=== PATIENT | female | born 1945 | race African-American/Black ===

== ENCOUNTER 2021-02-25 06:14 | Day surgery (SDC) | payer OTHER ==
[2021-02-20 10:40] LABS: Absolute Lymphocytes (CBC) 1.9 K/uL (0.7-4.9); Basophils % 0.7 % (0-1.3); Hematocrit 36.8 % (36.0-45.0); Lymphocytes % 27.5 % (15.3-44.8); MPV 8.2 fL (7.6-11.3); RBC Red Blood Cell Count 4.05 M/uL (3.86-4.86)
[2021-02-20 10:45] LABS: Protime INR 0.98
--- NOTE | 2021-02-20 10:55 | RAD REPORT ---
EXAM DESCRIPTION: RAD - Chest Pa And Lat (2 Views) - 02/20/2021 10:49 am CLINICAL HISTORY: preop Chest pain. COMPARISON: Chest Single View dated 09/03/2017 FINDINGS: The lungs are clear. The heart is mildly prominent in size. No displaced fractures. IMPRESSION: No acute or concerning finding suspected.
[2021-02-20 11:01] LABS: Potassium 3.6 mmol/L (3.5-5.1)
[2021-02-25] MEDS ORDERED: HEPA 1000U/500MLS 1,000 UNIT/500 ML BAG IV ONE (07:01)
[2021-02-25] MEDS ORDERED: LIDOCAINE 1% 20 ML MDV ONE ×2 (07:01→08:07)
[2021-02-25] MEDS ORDERED: NA CHLORIDE 0.9% 500 ML ONE (07:14)
[2021-02-25] MEDS ORDERED: MIDAZOLAM HCL 2 MG/2 ML INJ ONE ×3 (07:37→08:05)
[2021-02-25] MEDS ORDERED: FENTANYL CITR 100 MCG/2 ML ONE ×2 (07:37→13:00)
[2021-02-25] MEDS ORDERED: ATROPINE SULF 1 MG/10 ML SYR IV ONE ×3 (07:37→10:28)
[2021-02-25] MEDS ORDERED: NA CHLORIDE 0.9% 0 ML ONE (07:37)
[2021-02-25] MEDS ORDERED: NA CHLORIDE 0.9% 1,000 ML ONE (10:22)
[2021-02-25] MEDS ORDERED: FLUMAZENIL 0.1 MG/ML (5 mL VIAL) IV ONE (10:24)
[2021-02-25 10:26] LABS: Absolute Lymphocytes (CBC) 2.6 K/uL (0.7-4.9); Basophils % 0.8 % (0-1.3); Lymphocytes % 33.6 % (15.3-44.8); MPV 8.6 fL (7.6-11.3); RBC Red Blood Cell Count 4.11 M/uL (3.86-4.86)
[2021-02-25] MEDS ORDERED: ONDANSETRON 4 MG/2 ML VIAL ONE (11:05)
--- NOTE | 2021-02-25 11:18 | OP ---
Surgeon: Akil Pinto MD National Business Director: Mr. Jourdan Muller. The total conscious sedation was 45 minutes. The patient will remain in the hospital for 2 hours of bedrest after the procedure. She will go home today. Continue home medication. She will see me in the office in 2 weeks. Admitted to my service as an outpatient to the [facility] coreroom on 02/25/2021 for a left heart catheterizatio n, selective coronary arteriogram, left ventriculogram and left ventricular end-diastolic pressure wi asurements. Indication: With hypertension, dyslipidemia, and unstable angina. Procedure In Detail: The patient was prepped and draped in the routine sterile fashion. Given Verse d for sedation along with fentanyl. A 6-St Helenian sheath was introduced in the right common femoral art merrill successfully using the Seldinger technique, 10 cc of xylocaine. Angiography there was normal. A ngio-Seal was used to close the case. A Ravi catheter was used to do the diagnostic catheterizati on. She had mild plaquing in the LAD, mild plaquing in the left main, normal circumflex, normal RCA. She was right dominant. The JR4 catheter was used to cannulate the LV. The left ventriculogram sh owed an ejection fraction of 69%. Normal wall motion. Left ventricular end-diastolic pressure was 4 mmHg. The patient tolerated the procedure well. There were no complications. Blood Loss: 5 mL. Postoperative Diagnosis: Mild coronary artery disease. Plan: To continue medical therapy. RADHA/SAI Voice ID: [id number] Report ID: [id number]
--- NOTE | 2021-02-25 11:25 | RAD REPORT ---
EXAM DESCRIPTION: CT - Abdomen Pelvis W Contrast - 02/25/2021 11:08 am CLINICAL HISTORY: Prior catheterization, concern for retroperitoneal bleed COMPARISON: 09/03/2017 TECHNIQUE: Biphasic, helical CT imaging of the abdomen and pelvis was performed following oral and 1 00 ml non-ionic IV contrast. All CT scans are performed using dose optimization technique as appropriate and may include automated exposure control or mA/KV adjustment according to patient size. FINDINGS: No suspicious findings in the lung bases. Too small to characterize low-density lesion in the left hepatic lobe, statistically benign. No adren al lesions. Pancreas is within normal limits. Benign-appearing low-density renal lesions, statistical ly cysts. Spleen is unremarkable. No retroperitoneal adenopathy. Contrast present within the bladder. No bowel obstruction. Ventral abdominal wall laxity. Small retroperitoneal hemorrhage on the right s ousmane along the right inguinal region. No suspicious bony findings. IMPRESSION: Small right-sided retroperitoneal hematoma. No other acute findings identified.
[2021-02-25] MEDS ORDERED: FENTANYL CITR 100 MCG/2 ML IV PRN (12:22)
[2021-02-25 14:20] VITALS: BMI 35.4
[2021-02-25] MEDS: FENTANYL CITR 100 MCG/2 ML IV PRN ×4 (15:00→22:27)
[2021-02-25 15:52] LABS: Urine Appearance CLEAR (Clear); Urine Bilirubin NEGATIVE (Negative); Urine Blood NEGATIVE (Negative); Urine Color YELLOW (Yellow); Urine Glucose NEGATIVE (Negative); Urine Protein NEGATIVE (Negative); Urine Specific Gravity >=1.030 (1.005-1.030); Urine Urobilinogen 0.2 mg/dL (0.2-1.0); Urine pH 7.5 (5.0-7.0)
[2021-02-25 16:08] LABS: Urine Microscopic Reflex NO UMIC
[2021-02-25 16:48] LABS: Absolute Lymphocytes (CBC) 0.9 K/uL (0.7-4.9); Basophils % 0.7 % (0-1.3); Hematocrit 33.5 % (36.0-45.0); Lymphocytes % 10.8 % (15.3-44.8); MPV 8.6 fL (7.6-11.3); RBC Red Blood Cell Count 3.67 M/uL (3.86-4.86)
[2021-02-25 17:37] LABS: BUN Blood Urea Nitrogen 13 mg/dL (7-18); Bicarbonate 29 mmol/L (21-32); Glucose Level 106 mg/dL (74-106); Potassium 3.6 mmol/L (3.5-5.1); Sodium Level 142 mmol/L (136-145)
[2021-02-25 18:05] LABS: Blood Morphology Comment NOT SEEN (NOT SEEN); Platelet Estimate ADEQ; White Blood Cell Scan OK (OK)
[2021-02-25] MEDS ORDERED: ACETAMINOPHEN 325 MG TABLET PO PRN (20:31)
[2021-02-25] MEDS: NA CHLORIDE 0.9% 1,000 ML IV SCH (22:27)
[2021-02-26] MEDS: FENTANYL CITR 100 MCG/2 ML IV PRN (02:49)
[2021-02-26] MEDS: NA CHLORIDE 0.9% 1,000 ML IV SCH (06:10)
[2021-02-26 06:37] LABS: BUN Blood Urea Nitrogen 10 mg/dL (7-18); Bicarbonate 28 mmol/L (21-32); Glucose Level 87 mg/dL (74-106); HDL Cholesterol 75 mg/dL (40-60); LDL Cholesterol, Calculated 83 (<130); Potassium 3.3 mmol/L (3.5-5.1); Sodium Level 142 mmol/L (136-145)
[2021-02-26 06:58] LABS: Absolute Lymphocytes (CBC) 1.5 K/uL (0.7-4.9); Basophils % 0.4 % (0-1.3); Hematocrit 33.7 % (36.0-45.0); MPV 8.8 fL (7.6-11.3); RBC Red Blood Cell Count 3.68 M/uL (3.86-4.86)
[2021-02-26 10:50] VITALS: BP 121/56; TEMP 97
[2021-02-26 11:14] VITALS: O2SAT 97
--- NOTE | 2021-02-27 07:32 | SS ---
Date of Discharge: 02/26/2021 Reason For Admission: Unstable angina. Discharge Diagnosis: Chest pain with normal coronaries. Her other diagnoses include hypertension, dyslipidemia, gastroesophageal reflux disease, and obesity. Allergies: INCLUDE CLINDAMYCIN. Discharge Instructions: Discharge instruction was for her to follow up in my office in 2 weeks and c ontinue her home medication. Discharge diet was low-fat, low-cholesterol diet. Discharge activities were minimal activities. No heavy lifting or driving for 48 hours. Discharge Medications: The same as at home including aspirin, Norvasc, and Lipitor. Procedure: While she was in the hospital include left heart catheterization showing mild coronary ar mariel disease. No focal stenosis. Hospital Course: Ms. Saucedo is a 75-year-old, has hypertension, dyslipidemia, obesity, had classic sym ptoms for unstable angina including chest pain, radiating to the arm with exertion and shortness of b reath and diaphoresis. Catheterization has been planned as an outpatient and her heart catheterizati on itself was uneventful; however, post catheterization, she developed retroperitoneal hematoma docum ented by CT scan. She was initially vagal with low blood pressure and low heart rate. She was given 1 mg of atropine with fluid and recovered fully. CT scan of the abdomen showed retroperitoneal rich stephanie. She was observed overnight. Pressure was held at the groin for 40 minutes total. There were no obvious hematoma or ecchymosis. Most of the bleeding was retroperitoneal. The second day after t he catheterization, she was asymptomatic, was able to ambulate. Blood pressure was normal. She had good urinary output. She was asymptomatic and she was discharged with the above-mentioned instructions. RADHA/SAI Voice ID: [id number] Report ID: [id number]
== END 2021-02-26 10:55 | disposition home or self-care (01) ==
LOC: CCL 06:14 → 2ND 12:59 → CCL 02-26 10:55
DX: I25.110 Atherosclerotic heart disease of native coronary artery with unstable angina pectoris (principal); K66.1 Hemoperitoneum; I95.81 Postprocedural hypotension; R00.1 Bradycardia, unspecified; Y84.0 Cardiac catheterization as the cause of abnormal reaction of the patient, or of later complication, without mention of misadventure at the time of the procedure; Y92.239 Unspecified place in hospital as the place of occurrence of the external cause; I35.9 Nonrheumatic aortic valve disorder, unspecified; R01.1 Cardiac murmur, unspecified; I65.22 Occlusion and stenosis of left carotid artery; I10 Essential (primary) hypertension; E78.2 Mixed hyperlipidemia; K21.9 Gastro-esophageal reflux disease without esophagitis; R60.0 Localized edema; M15.0 Primary generalized (osteo)arthritis; E66.9 Obesity, unspecified; Z68.35 Body mass index [BMI] 35.0-35.9, adult; Z88.3 Allergy status to other anti-infective agents; Z88.6 Allergy status to analgesic agent; Z82.49 Family history of ischemic heart disease and other diseases of the circulatory system
CPT/HCPCS: 85025 ×4; 80048 ×3; 36415 ×3; 85610; 80061; 85730; 81003; 74177; 71046; 93458; Q9967; C1893; C1760; J2250 ×2; J3010 ×7; J7040; J7030 ×3; J1644; J2405; J0583

== ENCOUNTER 2023-02-13 09:26 | Emergency (ER) | payer OTHER ==
--- OUTSIDE RECORDS SUMMARY | 2023-02-13 09:41 | XMS REPORT | Continuity of Care Document ---
:1945 Author Organization [facility] t Address [address] [place] [address] [address] [place] [address] Care Team Providers Name Role Phone Timur GAYTAN, Madison Fragoso Primary Care Physician [phone] LAISHA BRITO Attending Clinician Unavailable CHAD SENDSTEFAINE K.H. Attending Clinician Unavailable PHONG MANNING Attending Clinician Unavailable Phong Manning PA-C Attending Clinician Unknown, Attending Attending Clinician Unavailable Julio GAYTAN, Dariel Attending Clinician DARIEL KEARNS Attending Clinician Unavailable Doctor Unassigned, [place] Attending Clinician Unavailable Madhu Verduzco MD Attending Clinician Chad GAYTAN, Sendstefanie K.H. Attending Clinician Julissa Padilla Attending Clinician JULISSA CASEY Attending Clinician Unavailable Scotty Catsro MD Attending Clinician [phone] Renetta Lu MD, Leeroy Keyes Attending Clinician Vaccine, Ang Db Cbc Fam Attending Clinician Unavailable Kt Johnson Attending Clinician Unavailable MERLE WHEELER Attending Clinician Unavailable ALEJANDRA LARSON Attending Clinician Unavailable Alejandra Larson MD Attending Clinician Mary Navarreet Attending Clinician MARY FELDMAN Attending Clinician Unavailable IRMA JOSHUA Attending Clinician Unavailable Ogunlanstephy DPM, Irma A Attending Clinician [phone] FLACO DE JESUS Attending Clinician Unavailable Neal [employer] SENIOR SERGEANT, Flaco Attending Clinician CHIRAG MAIER Attending Clinician Unavailable Laisha Brito MD Attending Clinician Lab, Ang - Db Attending Clinician Unavailable ESTHER PORTER Attending Clinician Unavailable Esther Marino Attending Clinician Asif Sanchez MD Attending Clinician ASIF SANCHEZ Attending Clinician Unavailable LEEROY LU Attending Clinician Unavailable Nurse, Adc Pob Immunization Attending Clinician Unavailable Drake Reece DO Attending Clinician DRAKE REECE Attending Clinician Unavailable Timur GAYTAN, Madison Fragoso Attending Clinician [phone] Ruby Hearn Attending Clinician Gurjit Pope Attending Clinician GURJIT CHRISTIANSON Attending Clinician Unavailable Provider, Ang [facility] Attending Clinician Unavailable Jeff LOVE, Luisa Attending Clinician TOVA BARBER Attending Clinician Unavailable ISABELLE COOK Attending Clinician Unavailable IGNACIA GIORDANO Attending Clinician Unavailable IGNACIA GIORDANO Attending Clinician Unavailable ALEJANDRA LARSON Admitting Clinician Unavailable FLACO DE JESUS Admitting Clinician Unavailable CHIRAG MAIER Admitting Clinician Unavailable EMERGENCY ROOM, EMERGENCY Admitting Clinician Unavailable Payers Payer Name Policy Type Policy Number Effective Date Expiration Date S our MEDICARE PART A \T\ [id number] 2009 B 00:00:00 CONTINENTAL [id number] 2020 BENEFITS 00:00:00 DOWNEY LIFE [id number] 2015 2020 00:00:00 00:00:00 Problems Condition Condition Condition Status Onset Resolution Last Treating Co mments Source Name Details Category Date Date Treatment Clinician Date Encounter Encounter Disease Active Uni vers for for 8-30 [place] of [place] Med[place] esdras for breast for breast Br anch cancer cancer Discolorat Discolorat Disease Active U nivleander ion of ion of 8-30 ity of skin of skin of 00:00: [place] lower leg lower leg 00 Medi esdras Branch Petechiae Petechiae Disease Active Uni vers 8-30 ity of 00:00: [place] 00 Medical Branch Lower leg Lower leg Disease Active Uni vers edema edema 8-30 ity of 00:00: Medical Branch 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 7-28 ity of [place] 00:00: [place] coronary coronary 00 Medica l artery of artery of Bran ch [place] heart heart without without angina angina pectoris pectoris Carotid Carotid Disease Active Univers occlusion, occlusion, 728 it y of left left 00:00: 00 Medical Branch Mixed Mixed Disease Active Univers hyperlipid hyperlipid 7-28 it y of emia emia 00:00: Medical Branch Gastroesop Gastroesop Disease Active U vianey hageal hageal 7-28 ity of reflux reflux 00:00: [place] disease disease 00 Medical with with Branch esophagiti esophagiti s s Primary Primary Disease Active Univers generalize generalize 7-28 it y of d d 00:00: [place] (osteo)art (osteo)art 00 Me dical hritis hritis Branch Gastritis Gastritis Disease Active Uni vers 7-28 ity of 00:00: [place] Medical Branch Hyperchole Hyperchole Disease Active U vianey sterolemia sterolemia 8-30 it y of 00:00: Medical Branch History of History of Disease Active U nivers gastritis gastritis 8- ity of 00:00: [place] 00 Medical Branch Patellar Patellar Disease Active [facility] di tendon tendon 3-28 st rupture, rupture, 00:00: Hospit a right, right, 00 l sequela sequela Arthritis Arthritis Disease Active Met hodi of left of left 1- st knee knee 00:00: Hospita 00 l Patellar Patellar Disease Active 2016-08 [facility] di tendon tendon 2-07 st avulsion, avulsion, 00:00: Hosp noni right, right, 00 l sequela sequela Patellar Patellar Disease Active 2016-08 [facility] di tendon tendon 1-03 st rupture, rupture, 00:00: Hospit a right, right, 00 l subsequent subsequent encounter encounter Lumbar Lumbar Disease Active 2016-08 Methodi radiculopa radiculopa 1-02 st thy thy 00:00: Hospita 00 l Extensor Extensor Disease Active [facility] di Reconstruc Reconstruc 5-04 st tion tion 00:00: Hospita 11/17/18 11/17/18 00 l POLY EX POLY EX and and Patellar Patellar Advancemen Advancemen t t Shortness Shortness Disease Active Met hodi of breath of breath 3-22 st 00:00: Hospita 00 l Cellulitis Cellulitis Disease Active M ethodi of right of right 3 st knee knee 00:00: Hospita 00 l 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 Chronic Chronic Disease Active Univers sinus sinus ity of bradycardi [place]adycardi [place] [facility] [place] Hypertensi Hypertensi Disease Active U nivers on on ity of [facility] Allergies, Adverse Reactions, Alerts Allergy Allergy Status Severity Reaction(s) Onset Inactive Treating Comm ents Source Name Type Date Date Clinician AMOXICIL DRUG Active Low Diarrhea Univer s MURIEL-POT 9-05 ity of CLAVULAN 00:00: [place] ATE 00 Medical Branch Amoxicil Propensi Active Diarrhea 2016- Univ ers muriel-Pot ty to 905 ity of Clavulan adverse 00:00: [place] ate reaction 00 Medical s Branch Sulfamet Propensi Active GI 2016- Nausea Method i hoxazole ty to Intolerance 09-17 st -Trimeth adverse 00:00: Hospita oprim reaction 00 l s to drug Clindamy Propensi Active GI Nausea Method i mica ty to Intolerance 09-17 st adverse 00:00: Hospita reaction 00 l s to drug Morphine Propensi Active Other (See Hallucina Methodi ty to Comments) 09-[address] adverse 00:00: Hospita reaction 00 l s to drug CLINDAMY DRUG Active High Unknown-Cmnt Un bo MICA INGREDI 3- ity of 00:00: [place] 00 Medical Branch Clindamy Propensi Active Nausea 2014- Nausea Univer s mica ty to and/or 303 ity of adverse Vomiting 00:00: [place] reaction 00 Medical s Branch MORPHINE DRUG Active High Hallucinates 0 Un bo INGREDI 05-17 ity of 00:00: [place] 00 Medical Branch Morphine Propensi Active Other - See Other U nivers ty to comments 05-17 reaction( ity o f adverse 00:00: s): [place] reaction 00 Confusion Medic al s /Agitatio Branch nHallucin ations SULFAMET DRUG Active Diarrhea 2011-0 Univer s HOXAZOLE 8-15 ity of -TRIMETH 00:00: [place] OPRIM 00 Medical Branch Sulfamet Propensi Active Nausea 2011-0 Nausea Univer s hoxazole ty to and/or 8-15 ity of -Trimeth adverse Vomiting 00:00: [place] oprim reaction 00 Medical s Branch Family History Family Member Diagnosis Comments Start Date Stop Date Source [facility] Social History Social Habit Start Date Stop Date Quantity Comments Source Gender identity [facility] orientation [facility] Exposure to 2022-12-21 2022-12-31 Not sure University SARS-CoV-2 (event) 00:00:00 14:26:00 [facility] History of Social 2022-10-26 2022-10-[address] function 00:00:00 00:00:00 Hospital Tobacco use and 2021-04-18 2021-04-18 Smokeless Universit y of exposure 00:00:00 00:00:00 tobacco non-user [facility] Alcohol intake 2021-03-24 2021-03-24 Current Denominational 00:00:00 00:00:00 non-drinker of Hospital alcohol (finding) Sex [birth year] Denominational 00:00:00 00:00:00 Hospital Smoking Status Start Date Stop Date Source Never smoked tobacco [facility] Medications Ordered Filled Start Stop Current Ordering Indication Dosage Frequency Signature Comments Components Source Medication Medication Date Date Medication? Clinician (SIG) Name Name aissatoustacey Yes [id number] 10mg Take 1 Univers n 10 mg 2-06 tablet by ity of tablet 00:00: mouth at [place] [address] bedtime. Medical Branch atorvastati Yes [id number] 10mg Take 1 Univers n 10 mg 2-06 tablet by ity of tablet 00:00: mouth at [place] [address] bedtime. Medical Branch atorvastati Yes [id number] 10mg Take 1 Univers n 10 mg 2-06 tablet by ity of tablet 00:00: mouth at [place] [address] bedtime. Medical Branch atorvastati Yes [id number] 10mg Take 1 Univers n 10 mg 2-06 tablet by ity of tablet 00:00: mouth at [place] [address] bedtime. Medical Branch atorvastati Yes [id number] 10mg Take 1 Univers n 10 mg 2-06 tablet by ity of tablet 00:00: mouth at [place] [address] bedtime. Medical Branch atorvastati Yes [id number] 10mg Take 1 Univers n 10 mg 2-06 tablet by ity of tablet 00:00: mouth at [place] [address] bedtime. [facility] Branch atorvastati Yes [id number] 10mg Take 1 Univers n 10 mg 2-06 tablet by ity of tablet 00:00: mouth at [place] [address] bedtime. [facility] Branch atorvastati Yes [id number] 10mg Take 1 Univers n 10 mg 2-06 tablet by ity of tablet 00:00: mouth at [place] 00 bedtime. Medical Branch atorvastati 2022-0 Yes [id number] 10mg Take 1 Univers n 10 mg 2-06 tablet by ity of tablet 00:00: mouth at [place] 00 bedtime. Medical Branch atorvastati 2022-0 Yes [id number] 10mg Take 1 Univers n 10 mg 2-06 tablet by ity of tablet 00:00: mouth at [place] 00 bedtime. Medical Branch aspirin 81 2022-0 Yes 81mg Take 81 mg U nivers mg EC 1-30 by mouth ity of tablet 10:49: daily. [place] [address] Medical Branch aspirin 81 2022-0 Yes 81mg Take 81 mg U nivers mg EC 1-30 by mouth ity of tablet 10:49: daily. [place] [address] Medical Branch aspirin 81 2022-0 Yes 81mg Take 81 mg U nivers mg EC 1-30 by mouth ity of tablet 10:49: daily. [address] Branch aspirin 81 2022-0 Yes 81mg Take 81 mg U nivers mg EC 1-30 by mouth ity of tablet 10:49: daily. [address] Branch aspirin 81 2022-0 Yes 81mg Take 81 mg U nivers mg EC 1-30 by mouth ity of tablet 10:49: daily. [place] [address] Medical Branch aspirin 81 2022-0 Yes 81mg Take 81 mg U nivers mg EC 1-30 by mouth ity of tablet 10:49: daily. [address] Branch aspirin 81 2022-0 Yes 81mg Take 81 mg U nivers mg EC 1-30 by mouth ity of tablet 10:49: daily. [address] Branch aspirin 81 2022-0 Yes 81mg Take 81 mg U nivers mg EC 1-30 by mouth ity of tablet 10:49: daily. [address] Branch aspirin 81 2022-0 Yes 81mg Take 81 mg U nivers mg EC 1-30 by mouth ity of tablet 10:49: daily. [address] Branch aspirin 81 2022-0 Yes 81mg Take 81 mg U nivers mg EC 1-30 by mouth ity of tablet 10:49: daily. [address] Branch aspirin 81 2022-0 Yes 81mg Take 81 mg U nivers mg EC 1-30 by mouth ity of tablet 10:49: daily. [address] Branch aspirin 81 2022-0 Yes 81mg Take 81 mg U nivers mg EC 1-30 by mouth ity of tablet 10:49: daily. [address] Branch aspirin 81 2023-0 Yes 81mg Take 81 mg U nivers mg EC 1-30 by mouth ity of tablet 10:49: daily. [address] Branch amLODIPine 2023-0 Yes [id number] 10mg Take 1 U nivers 10 mg 1-30 tablet by ity of tablet 00:00: mouth in [place] the Medical morning. Branch amLODIPine 2023-0 Yes [id number] 10mg Take 1 U nivers 10 mg 1-30 tablet by ity of tablet 00:00: mouth in [place] the Medical morning. Branch amLODIPine 2023-0 Yes [id number] 10mg Take 1 U nivers 10 mg 1-30 tablet by ity of tablet 00:00: mouth in [place] the Medical morning. Branch amLODIPine 2023-0 Yes [id number] 10mg Take 1 U nivers 10 mg 1-30 tablet by ity of tablet 00:00: mouth in [place] the Medical morning. Branch amLODIPine 2023-0 Yes [id number] 10mg Take 1 U nivers 10 mg 1-30 tablet by ity of tablet 00:00: mouth in [place] the Medical morning. Branch amLODIPine 2023-0 Yes [id number] 10mg Take 1 U nivers 10 mg 1-30 tablet by ity of tablet 00:00: mouth in [place] the Medical morning. Branch amLODIPine 2023-0 Yes [id number] 10mg Take 1 U nivers 10 mg 1-30 tablet by ity of tablet 00:00: mouth in [place] the Medical morning. Branch amLODIPine 2023-0 Yes [id number] 10mg Take 1 U nivers 10 mg 1-30 tablet by ity of tablet 00:00: mouth in [place] the Medical morning. Branch amLODIPine 2023-0 Yes [id number] 10mg Take 1 U nivers 10 mg 1-30 tablet by ity of tablet 00:00: mouth in [place] the Medical morning. Branch amLODIPine 2023-0 Yes [id number] 10mg Take 1 U nivers 10 mg 1-30 tablet by ity of tablet 00:00: mouth in [place] 00 the Medical morning. Branch amLODIPine 2023-0 Yes [id number] 10mg Take 1 U nivers 10 mg 1-30 tablet by ity of tablet 00:00: mouth in [place] 00 the Medical morning. Branch amLODIPine 3-0 Yes [id number] 10mg Take 1 U nivers 10 mg 1-30 tablet by ity of tablet 00:00: mouth in [place] 00 the Medical morning. Branch OMEPRAZOLE 2023-0 Yes [id number] TAKE 1 Univers 20 mg 1-04 9103 CAPSULE BY ity of capsule 00:00: MOUTH [place] 00 EVERY DAY Medical Branch OMEPRAZOLE 2023-0 Yes [id number] TAKE 1 Univers 20 mg 1-04 9103 CAPSULE BY ity of capsule 00:00: MOUTH [place] 00 EVERY DAY Medical Branch OMEPRAZOLE 2023-0 Yes [id number] TAKE 1 Univers 20 mg 1-04 9103 CAPSULE BY ity of capsule 00:00: MOUTH [place] 00 EVERY DAY Medical Branch OMEPRAZOLE 2023-0 Yes [id number] TAKE 1 Univers 20 mg 1-04 9103 CAPSULE BY ity of capsule 00:00: MOUTH [place] 00 EVERY DAY Medical Branch OMEPRAZOLE 2023-0 Yes [id number] TAKE 1 Univers 20 mg 1-04 9103 CAPSULE BY ity of capsule 00:00: MOUTH [place] 00 EVERY DAY Medical Branch OMEPRAZOLE 2023-0 Yes [id number] TAKE 1 Univers 20 mg 1-04 9103 CAPSULE BY ity of capsule 00:00: MOUTH [place] 00 EVERY DAY Medical Branch OMEPRAZOLE 2023-0 Yes [id number] TAKE 1 Univers 20 mg 1-04 9103 CAPSULE BY ity of capsule 00:00: MOUTH [place] 00 EVERY DAY Medical Branch OMEPRAZOLE 2023-0 Yes [id number] TAKE 1 Univers 20 mg 1-04 9103 CAPSULE BY ity of capsule 00:00: MOUTH [place] 00 EVERY DAY Medical Branch OMEPRAZOLE 2023-0 Yes [id number] TAKE 1 Univers 20 mg 1-04 9103 CAPSULE BY ity of capsule 00:00: MOUTH [place] 00 EVERY DAY Medical Branch OMEPRAZOLE 2023-0 Yes [id number] TAKE 1 Univers 20 mg 1-04 9103 CAPSULE BY ity of capsule 00:00: MOUTH [place] 00 EVERY DAY Medical Branch OMEPRAZOLE 2023-0 Yes [id number] TAKE 1 Univers 20 mg 1-04 9103 CAPSULE BY ity of capsule 00:00: MOUTH [place] 00 EVERY DAY Medical Branch OMEPRAZOLE 2023-0 Yes [id number] TAKE 1 Univers 20 mg 1-04 9103 CAPSULE BY ity of capsule 00:00: MOUTH [place] 00 EVERY DAY Medical Branch OMEPRAZOLE 2023-0 Yes [id number] TAKE 1 Univers 20 mg 1-04 9103 CAPSULE BY ity of capsule 00:00: MOUTH [place] 00 EVERY DAY Medical Branch OMEPRAZOLE 2023-0 Yes [id number] TAKE 1 Univers 20 mg 1-04 9103 CAPSULE BY ity of capsule 00:00: MOUTH [place] 00 EVERY DAY Medical Branch OMEPRAZOLE 2023-0 Yes [id number] TAKE 1 Univers 20 mg 1-04 9103 CAPSULE BY ity of capsule 00:00: MOUTH [place] 00 EVERY DAY Medical Branch OMEPRAZOLE 2023-0 Yes [id number] TAKE 1 Univers 20 mg 1-04 9103 CAPSULE BY ity of capsule 00:00: MOUTH [place] 00 EVERY DAY Medical Branch OMEPRAZOLE 2023-0 Yes [id number] TAKE 1 Univers 20 mg 1-04 9103 CAPSULE BY ity of capsule 00:00: MOUTH [place] 00 EVERY DAY Medical Branch OMEPRAZOLE 2023-0 Yes [id number] TAKE 1 Univers 20 mg 1-04 9103 CAPSULE BY ity of capsule 00:00: MOUTH [place] 00 EVERY DAY Medical Branch OMEPRAZOLE 2023-0 Yes [id number] TAKE 1 Univers 20 mg 1-04 9103 CAPSULE BY ity of capsule 00:00: MOUTH [place] 00 EVERY DAY Medical Branch amLODIPine 2021-1 Yes [id number] 10mg Take 2 U nivers 5 mg tablet 2-07 tablets by it y of 00:00: mouth in [place] 00 the Medical morning. Branch amLODIPine 2021- Yes [id number] 10mg Take 2 U nivers 5 mg tablet 2-07 tablets by it y of 00:00: mouth in [place] 00 the Medical morning. Branch amLODIPine 2021- Yes [id number] 10mg Take 2 U nivers 5 mg tablet 2-07 tablets by it y of 00:00: mouth in [place] 00 the Medical morning. Branch amLODIPine 2021- Yes [id number] 10mg Take 2 U nivers 5 mg tablet 2-07 tablets by it y of 00:00: mouth in [place] 00 the Medical morning. Branch amLODIPine 2021- Yes [id number] 10mg Take 2 U nivers 5 mg tablet 2-07 tablets by it y of 00:00: mouth in [place] 00 the Medical morning. Branch amLODIPine 2021- Yes [id number] 10mg Take 2 U nivers 5 mg tablet 2-07 tablets by it y of 00:00: mouth in [place] 00 the Medical morning. Branch amLODIPine 2021-08 Yes [id number] 10mg Take 2 U nivers 5 mg tablet 2-07 tablets by it y of 00:00: mouth in [place] 00 the Medical morning. Branch amLODIPine 2021-08 Yes [id number] 10mg Take 2 U nivers 5 mg tablet 2-07 tablets by it y of 00:00: mouth in [place] 00 the Medical morning. Branch amLODIPine 2021-08 Yes [id number] 10mg Take 2 U nivers 5 mg tablet 2-07 tablets by it y of 00:00: mouth in [place] the Medical morning. Branch amLODIPine 2021-08 Yes [id number] 10mg Take 2 U nivers 5 mg tablet 2-07 tablets by it y of 00:00: mouth in [place] the Medical morning. Branch amLODIPine 2021-2022- No [id number] 10mg Take 2 Univers 5 mg tablet 2-07 -30 tablets by i ty of 00:00: 00:00 mouth in [place] 00 :00 the Medical morning. Branch amLODIPine 2021-2022- No [id number] 10mg Take 2 Univers 5 mg tablet 2-07 -30 tablets by i ty of 00:00: 00:00 mouth in [place] 00 :00 the Medical morning. [place] aspirin 81 2021-08 Yes 81mg Take 81 mg U nivers mg EC 2-06 by mouth ity of tablet 15:53: daily. [address] aspirin 81 2021-08 Yes 81mg Take 81 mg U nivers mg EC 2-06 by mouth ity of tablet 15:53: daily. [address] aspirin 81 2021-08 Yes 81mg Take 81 mg U nivers mg EC 2-06 by mouth ity of tablet 15:53: daily. [address] aspirin 81 2021-08 Yes 81mg Take 81 mg U nivers mg EC 2-06 by mouth ity of tablet 15:53: daily. [address] aspirin 81 2021-08 Yes 81mg Take 81 mg U nivers mg EC 2-06 by mouth ity of tablet 15:53: daily. [address] aspirin 81 2021-08 Yes 81mg Take 81 mg U nivers mg EC 2-06 by mouth ity of tablet 15:53: daily. [address] aspirin 81 2021-08 Yes 81mg Take 81 mg U nivers mg EC 2-06 by mouth ity of tablet 15:53: daily. [address] aspirin 81 2021-08 Yes 81mg Take 81 mg U nivers mg EC 2-06 by mouth ity of tablet 15:53: daily. [address] aspirin 81 2021-08 Yes 81mg Take 81 mg U nivers mg EC 2-06 by mouth ity of tablet 15:53: daily. [address] aspirin 81 2021-08 Yes 81mg Take 81 mg U nivers mg EC 2-06 by mouth ity of tablet 15:53: daily. [address] aspirin 81 2021-08 Yes 81mg Take 81 mg U nivers mg EC 2-06 by mouth ity of tablet 15:53: daily. [address] aspirin 81 2021-08 Yes 81mg Take 81 mg U nivers mg EC 2-06 by mouth ity of tablet 15:53: daily. [address] aspirin 81 2021-08 Yes 81mg Take 81 mg U nivers mg EC 2-06 by mouth ity of tablet 15:53: daily. [address] ketorolac 2021-08- No 15mg 15 mg, Unive rs (TORADOL) 08-24 Intramuscu ity of injection 19:45: 19:40 [place], ONCE, [place] 15 mg 00 :00 1 dose, On Medical Wed Branch 06/24/22 at 1445, [place] HYDROcodone 2021-08- No 1{tbl} 1 tablet, Univers -acetaminop 08-24 Oral, ity of hen (NORCO 19:45: 19:39 ONCE, 1 J[place] as 5) 5-325 mg 00 :00 dose, On Medi esdras tablet 1 Wed Branch tablet 06/24/22 at 1445, [place] aspirin 81 2021-08 Yes 81mg Take 81 mg U nivers mg EC -02 by mouth ity of tablet 16:08: daily. [address] Cholecalcif 2021-08 Yes Take by Uni vers bert, 02 mouth. ity of Vitamin D3, 16:08: [place] 50 mcg 20 Medical (2,000 Branch unit) capsule vitamin C 2021-08 Yes 1000mg Take 1,000 Univers with beni 1-02 mg by ity of hips 1,000 16:08: mouth. [place] mg tablet 20 Medical Branch calcium-vit 2021-08 Yes 2{tbl} Take 2 Un bo islas D 500 1-02 tablets by ity of mg(1,250mg) 16:08: [place] -200 unit 20 Medical per tablet Branch vitamin 2021-08 Yes 1000ug Take 1,000 Un bo B-12 1,000 1-02 mcg by ity of mcg tablet 16:08: mouth. [place] [address] Medical Branch Docosahexan 2021-08 Yes Take by Uni vers oic 1-02 mouth. ity of Acid-Eicosa 16:08: [place] pent 20 Medical 120-180 mg Branch Cap cranberry 2021-08 Yes Take by Unive rs fruit -02 mouth. ity of concentrate 16:08: [place] (AZO 20 Medical CRANBERRY Branch ORAL) MULTIVITAMI 2021-08 Yes Take by Uni vers N ORAL 02 mouth. ity of 16:08: [address] Branch OMEGA 3,6,9 2021-08 Yes Take by Uni vers COMBINATION -02 mouth. ity of NO.7 ORAL 16:08: [place] [address] Medical Branch elderberry 2021-08 Yes 400mg Take 400 Un bo fruit 1-02 mg by ity of (ELDERBERRY 16:08: [place] ORAL[place] Medical Branch Lactobacill 2021-08 Yes Take by Uni vers us 02 mouth. ity of acidophilus 16:08: [place] (PROBIOTIC 20 Medical ORAL) Branch aspirin 81 2021-08 Yes 81mg Take 81 mg U nivers mg EC 08-24 by mouth ity of tablet 16:08: daily. [place] [address] Medical Branch Cholecalcif 2021-08 Yes Take by Uni vers bert, -02 mouth. ity of Vitamin D3, 16:08: [place] 50 mcg 20 Medical (2,000 Branch unit) capsule vitamin C 2021-08 Yes 1000mg Take 1,000 Univers with beni 1-02 mg by ity of hips 1,000 16:08: mouth. [place] mg tablet 20 Medical Branch calcium-vit 2021-08 Yes 2{tbl} Take 2 Un bo islas D 500 1-02 tablets by ity of mg(1,250mg) 16:08: [place] -200 unit 20 Medical per tablet Branch vitamin 2021-08 Yes 1000ug Take 1,000 Un bo B-12 1,000 1-02 mcg by ity of mcg tablet 16:08: mouth. [place] [address] Medical Branch Docosahexan 2021-08 Yes Take by Uni vers oic 1-02 mouth. ity of Acid-Eicosa 16:08: [place] pent 20 Medical 120-180 mg Branch Cap cranberry 2021-08 Yes Take by Unive rs fruit -02 mouth. ity of concentrate 16:08: [place] (AZO 20 Medical CRANBERRY Branch ORAL) MULTIVITAMI 2021-08 Yes Take by Uni vers N ORAL -02 mouth. ity of 16:08: [address] Branch OMEGA 3,6,9 2021-08 Yes Take by Uni vers COMBINATION 08-24 mouth. ity of NO.7 ORAL 16:08: [address] Branch elderberry 2021-08 Yes 400mg Take 400 Un bo fruit 1-02 mg by ity of (ELDERBERRY 16:08: [place] ORAL[place] [address] [place] [address] Branch Lactobacill 2021-08 Yes Take by Uni vers us 02 mouth. ity of acidophilus 16:08: [place] (PROBIOTIC 20 Medical ORAL) Branch aspirin 81 2021-08 Yes 81mg Take 81 mg U nivers mg EC 02 by mouth ity of tablet 16:08: daily. [address] Branch Cholecalcif 2021-08 Yes Take by Uni vers bert, -02 mouth. ity of Vitamin D3, 16:08: [place] 50 mcg 20 Medical (2,000 Branch unit) capsule vitamin C 2021-08 Yes 1000mg Take 1,000 Univers with beni 1-02 mg by ity of hips 1,000 16:08: mouth. [place] mg tablet Medical Branch calcium-vit 2021-08 Yes 2{tbl} Take 2 Un bo islas D 500 1-02 tablets by ity of mg(1,250mg) 16:08: [place] -200 unit 20 Medical per tablet Branch vitamin 2021-08 Yes 1000ug Take 1,000 Un bo B-12 1,000 1-02 mcg by ity of mcg tablet 16:08: mouth. [address] Branch Docosahexan 2021-08 Yes Take by Uni vers oic 1-02 mouth. ity of Acid-Eicosa 16:08: [place] pent 20 Medical 120-180 mg Branch Cap cranberry 2021-08 Yes Take by Unive rs fruit 1-02 mouth. ity of concentrate 16:08: [place] (AZO 20 Medical CRANBERRY Branch ORAL) MULTIVITAMI 2021-08 Yes Take by Uni vers N ORAL 1-02 mouth. ity of 16:08: [address] Branch OMEGA 3,6,9 2021-08 Yes Take by [facility] vers COMBINATION 1-02 mouth. ity of NO.7 ORAL 16:08: [place] [address] Medical Branch elderberry 2021-08 Yes 400mg Take 400 Un bo fruit 1-02 mg by ity of (ELDERBERRY 16:08: [place] [facility] Lactobacill 2021-08 Yes Take by Uni vers us 08-24 mouth. ity of acidophilus 16:08: [place] (PROBIOTIC 20 Medical ORAL) Branch aspirin 81 2021-08 Yes 81mg Take 81 mg U nivers mg EC 02 by mouth ity of tablet 16:08: daily. [address] Branch Cholecalcif 2021-08 Yes Take by Uni vers bert, 1-02 mouth. ity of Vitamin D3, 16:08: [place] 50 mcg 20 Medical (2,000 Branch unit) capsule vitamin C 2021-08 Yes 1000mg Take 1,000 [facility] with beni 1-02 mg by ity of hips 1,000 16:08: mouth. [place] mg tablet 20 Medical Branch calcium-vit 2021-08 Yes 2{tbl} Take 2 Un bo islas D 500 1-02 tablets by ity of mg(1,250mg) 16:08: [place]. [place] -200 unit 20 [facility] per tablet Branch vitamin 2021-08 Yes 1000ug Take 1,000 Un bo B-12 1,000 1-02 mcg by ity of mcg tablet 16:08: mouth. [place] [address] [facility] Branch Docosahexan 2021-08 Yes Take by Uni vers oic 1-02 mouth. ity of Acid-Eicosa 16:08: [place] pent 20 Medical 120-180 mg Branch Cap cranberry 2021-08 Yes Take by Unive rs fruit 1-02 mouth. ity of concentrate 16:08: [place] (AZO 20 Medical CRANBERRY Branch ORAL) MULTIVITAMI 2021-08 Yes Take by Uni vers N ORAL 1-02 mouth. ity of 16:08: [address] Branch OMEGA 3,6,9 2021-08 Yes Take by Uni vers COMBINATION 1-02 mouth. ity of NO.7 ORAL 16:08: [address] Branch elderberry 2021-08 Yes 400mg Take 400 Un bo fruit 1-02 mg by ity of ([place]DERBERRY 16:08: [place] [address] [place] [address] Branch Lactobacill 2021-08 Yes Take by Uni vers us -02 mouth. ity of acidophilus 16:08: [place] (PROBIOTIC 20 Medical ORAL) Branch aspirin 81 2021-08 Yes 81mg Take 81 mg U nivers mg EC 02 by mouth ity of tablet 16:08: daily. [address] Cholecalcif 2021-08 Yes Take by Uni vers bert, -02 mouth. ity of Vitamin D3, 16:08: [place] 50 mcg 20 Medical (2,000 Branch unit) capsule vitamin C 2021-08 Yes 1000mg Take 1,000 [facility] with beni 1-02 mg by ity of hips 1,000 16:08: mouth. [place] mg tablet [address] [place] [address] Branch calcium-vit 2021-08 Yes 2{tbl} Take 2 Un bo islas D 500 1-02 tablets by ity of mg(1,250mg) 16:08: [place]. [place] -200 unit 20 [facility] per tablet Branch vitamin 2021-08 Yes 1000ug Take 1,000 Un bo B-12 1,000 1-02 mcg by ity of mcg tablet 16:08: mouth. [address] Branch Docosahexan 2021-08 Yes Take by Uni vers oic 1-02 mouth. ity of Acid-Eicosa 16:08: [place] pent Medical 120-180 mg Branch Cap cranberry 2021-08 Yes Take by Unive rs fruit 1-02 mouth. ity of concentrate 16:08: [place] (AZO 20 Medical CRANBERRY Branch ORAL) MULTIVITAMI 2021-08 Yes Take by Uni vers N ORAL 1-02 mouth. ity of 16:08: [address] OMEGA 3,6,9 2021-08 Yes Take by [facility] vers COMBINATION 1-02 mouth. ity of NO.7 ORAL 16:08: [address] Branch elderberry 2021-08 Yes 400mg Take 400 Un bo fruit 1-02 mg by ity of (ELDERBERRY 16:08: [place]. [place] [facility] Lactobacill 2021-08 Yes Take by Uni vers us 02 mouth. ity of acidophilus 16:08: [place] (PROBIOTIC 20 Medical ORAL) Branch aspirin 81 2021-08 Yes 81mg Take 81 mg U nivers mg EC 02 by mouth ity of tablet 16:08: daily. [address] Cholecalcif 2021-08 Yes Take by Uni vers bert, -02 mouth. ity of Vitamin D3, 16:08: [place] 50 mcg 20 Medical (2,000 Branch unit) capsule vitamin C 2021-08 Yes 1000mg Take 1,000 [facility] with beni 1-02 mg by ity of hips 1,000 16:08: mouth. [place] mg tablet Medical Branch calcium-vit 2021-08 Yes 2{tbl} Take 2 Un bo islas D 500 -02 tablets by ity of mg(1,250mg) 16:08: [place]. [place] -200 unit 20 [facility] per tablet Branch vitamin 2021-08 Yes 1000ug Take 1,000 Un bo B-12 1,000 1-02 mcg by ity of mcg tablet 16:08: mouth. [address] Branch Docosahexan 2021-08 Yes Take by Uni vers oic 02 mouth. ity of Acid-Eicosa 16:08: [place] pent Medical 120-180 mg Branch Cap cranberry 2021-08 Yes Take by Unive rs fruit -02 mouth. ity of concentrate 16:08: [place] (AZO 20 Medical CRANBERRY Branch ORAL) MULTIVITAMI 2021-08 Yes Take by Uni vers N ORAL -02 mouth. ity of 16:08: [address] Branch OMEGA 3,6,9 2021-08 Yes Take by [facility] vers COMBINATION 02 mouth. ity of NO.7 ORAL 16:08: [address] Branch elderberry 2021-08 Yes 400mg Take 400 Un bo fruit 1-02 mg by ity of (ELDERBERRY 16:08: [place]. [place] [facility] Lactobacill 2021-08 Yes Take by Uni vers us -02 mouth. ity of acidophilus 16:08: [place] (PROBIOTIC 20 Medical ORAL) Branch aspirin 81 2021-08 Yes 81mg Take 81 mg U nivers mg EC 1-02 by mouth ity of tablet 16:08: daily. [place] [address] [facility] Branch Cholecalcif 2021-08 Yes Take by Uni vers bert, 1-02 mouth. ity of Vitamin D3, 16:08: [place] 50 mcg 20 Medical (2,000 Branch unit) capsule vitamin C 2021-08 Yes 1000mg Take 1,000 [facility] with beni 1-02 mg by ity of hips 1,000 16:08: mouth. [place] mg tablet 20 Medical Branch calcium-vit 2021-08 Yes 2{tbl} Take 2 Un bo islas D 500 1-02 tablets by ity of mg(1,250mg) 16:08: [place]. [place] -200 unit 20 [facility] per tablet Branch vitamin 2021-08 Yes 1000ug Take 1,000 Un bo B-12 1,000 1-02 mcg by ity of mcg tablet 16:08: mouth. [address] Branch Docosahexan 2021-08 Yes Take by Uni vers oic 02 mouth. ity of Acid-Eicosa 16:08: [place] pent 20 Medical 120-180 mg Branch Cap cranberry 2021-08 Yes Take by Unive rs fruit -02 mouth. ity of concentrate 16:08: [place] (AZO 20 Medical CRANBERRY Branch ORAL) MULTIVITAMI 2021-08 Yes Take by Uni vers N ORAL -02 mouth. ity of 16:08: [address] Branch OMEGA 3,6,9 2021-08 Yes Take by [facility] vers COMBINATION -02 mouth. ity of NO.7 ORAL 16:08: [address] Branch elderberry 2021-08 Yes 400mg Take 400 Un bo fruit 1-02 mg by ity of (ELDERBERRY 16:08: [place]. [place] [facility] Lactobacill 2021-08 Yes Take by Uni vers us 1-02 mouth. ity of acidophilus 16:08: [place] (PROBIOTIC 20 Medical ORAL) Branch Cholecalcif 2021-08 Yes Take by Uni vers bert, 1-02 mouth. ity of Vitamin D3, 16:08: [place] 50 mcg 20 Medical (2,000 Branch unit) capsule vitamin C 2021-08 Yes 1000mg Take 1,000 [facility] with beni 1-02 mg by ity of hips 1,000 16:08: mouth. [place] mg tablet 20 Medical Branch calcium-vit 2021-08 Yes 2{tbl} Take 2 Un bo islas D 500 1-02 tablets by ity of mg(1,250mg) 16:08: [place]. [place] -200 unit 20 [facility] per tablet Branch vitamin 2021-08 Yes 1000ug Take 1,000 Un bo B-12 1,000 1-02 mcg by ity of mcg tablet 16:08: mouth. [place] [address] [facility] Branch Docosahexan 2021-08 Yes Take by Uni vers oic 1-02 mouth. ity of Acid-Eicosa 16:08: [place] pent 20 Medical 120-180 mg Branch Cap cranberry 2021-08 Yes Take by Unive rs fruit -02 mouth. ity of concentrate 16:08: [place] (AZO 20 Medical CRANBERRY Branch ORAL) MULTIVITAMI 2021-08 Yes Take by Uni vers N ORAL -02 mouth. ity of 16:08: [place] [address] [facility] Branch OMEGA 3,6,9 2021-08 Yes Take by [facility] vers COMBINATION 02 mouth. ity of NO.7 ORAL 16:08: [place] [address] [facility] Branch elderberry 2021-08 Yes 400mg Take 400 Un bo fruit 1-02 mg by ity of (ELDERBERRY 16:08: [place]. [place] 20 [facility] Lactobacill 2021-08 Yes Take by Uni vers us 02 mouth. ity of acidophilus 16:08: [place] (PROBIOTIC 20 Medical ORAL) Branch Cholecalcif 2021-08 Yes Take by Uni vers bert, -02 mouth. ity of Vitamin D3, 16:08: [place] 50 mcg 20 Medical (2,000 Branch unit) capsule vitamin C 2021-08 Yes 1000mg Take 1,000 [facility] with beni 1-02 mg by ity of hips 1,000 16:08: mouth. [place] mg tablet 20 Medical Branch calcium-vit 2021-08 Yes 2{tbl} Take 2 Un bo islas D 500 1-02 tablets by ity of mg(1,250mg) 16:08: [place]. [place] -200 unit 20 [facility] per tablet Branch vitamin 2021-08 Yes 1000ug Take 1,000 Un bo B-12 1,000 1-02 mcg by ity of mcg tablet 16:08: mouth. [place] [address] [facility] Branch Docosahexan 2021-08 Yes Take by Uni vers oic 1-02 mouth. ity of Acid-Eicosa 16:08: [place] pent 20 Medical 120-180 mg Branch Cap cranberry 2021-08 Yes Take by Unive rs fruit 1-02 mouth. ity of concentrate 16:08: [place] (AZO 20 Medical CRANBERRY Branch ORAL) MULTIVITAMI 2021-08 Yes Take by Uni vers N ORAL 1-02 mouth. ity of 16:08: [place] [address] [facility] Branch OMEGA 3,6,9 2021-08 Yes Take by [facility] vers COMBINATION 1-02 mouth. ity of NO.7 ORAL 16:08: [place] 20 Medical Branch elderberry 2021-08 Yes 400mg Take 400 Un bo fruit 1-02 mg by ity of (ELDERBERRY 16:08: [place]. [place] [facility] Lactobacill 2021-08 Yes Take by Uni vers us 1-02 mouth. ity of acidophilus 16:08: [place] (PROBIOTIC 20 Medical ORAL) Branch Cholecalcif 2021-08 Yes Take by Uni vers bert, 1-02 mouth. ity of Vitamin D3, 16:08: [place] 50 mcg 20 Medical (2,000 Branch unit) capsule vitamin C 2021-08 Yes 1000mg Take 1,000 [facility] with beni 1-02 mg by ity of hips 1,000 16:08: mouth. [place] mg tablet 20 Medical Branch calcium-vit 2021-08 Yes 2{tbl} Take 2 Un bo islas D 500 1-02 tablets by ity of mg(1,250mg) 16:08: mouth. [place] -200 unit 20 [facility] per tablet Branch vitamin 2021-08 Yes 1000ug Take 1,000 Un bo B-12 1,000 1-02 mcg by ity of mcg tablet 16:08: mouth. [place] [address] [facility] Branch Docosahexan 2021-08 Yes Take by Uni vers oic 1-02 mouth. ity of Acid-Eicosa 16:08: [place] pent 20 Medical 120-180 mg Branch Cap cranberry 2021-08 Yes Take by Unive rs fruit 1-02 mouth. ity of concentrate 16:08: [place] (AZO 20 Medical CRANBERRY Branch ORAL) MULTIVITAMI 2021-08 Yes Take by Uni vers N ORAL 1-02 mouth. ity of 16:08: [place] [address] [facility] Branch OMEGA 3,6,9 2021-08 Yes Take by [facility] vers COMBINATION 1-02 mouth. ity of NO.7 ORAL 16:08: [place] 20 Medical Branch elderberry 2021-08 Yes 400mg Take 400 Un bo fruit 1-02 mg by ity of (ELDERBERRY 16:08: [place]. [place] 20 [facility] Lactobacill 2021-08 Yes Take by Uni vers us 1-02 mouth. ity of acidophilus 16:08: [place] (PROBIOTIC 20 Medical ORAL) Branch Cholecalcif 2021-08 Yes Take by Uni vers bert, 1-02 mouth. ity of Vitamin D3, 16:08: [place] 50 mcg 20 Medical (2,000 Branch unit) capsule vitamin C 2021-08 Yes 1000mg Take 1,000 [facility] with beni 1-02 mg by ity of hips 1,000 16:08: mouth. [place] mg tablet Medical Branch calcium-vit 2021-08 Yes 2{tbl} Take 2 Un bo islas D 500 1-02 tablets by ity of mg(1,250mg) 16:08: mouth. [place] -200 unit 20 [facility] per tablet Branch vitamin 2021-08 Yes 1000ug Take 1,000 Un bo B-12 1,000 1-02 mcg by ity of mcg tablet 16:08: mouth. [place] [address] [facility] Branch Docosahexan 2021-08 Yes Take by Uni vers oic 1-02 mouth. ity of Acid-Eicosa 16:08: [place] pent 20 Medical 120-180 mg Branch Cap cranberry 2021-08 Yes Take by Unive rs fruit 1-02 mouth. ity of concentrate 16:08: [place] (AZO 20 Medical CRANBERRY Branch ORAL) MULTIVITAMI 2021-08 Yes Take by Uni vers N ORAL 1-02 mouth. ity of 16:08: [place] [address] [facility] Branch OMEGA 3,6,9 2021-08 Yes Take by Uni vers COMBINATION 1-02 mouth. ity of NO.7 ORAL 16:08: [place] [address] [facility] Branch elderberry 2021-08 Yes 400mg Take 400 Un bo fruit 1-02 mg by ity of (ELDERBERRY 16:08: [place]. [place] 20 [facility] Lactobacill 2021-08 Yes Take by Uni vers us 1-02 mouth. ity of acidophilus 16:08: [place] (PROBIOTIC 20 Medical ORAL) Branch Cholecalcif 2021-08 Yes Take by Uni vers bert, 1-02 mouth. ity of Vitamin D3, 16:08: [place] 50 mcg 20 Medical (2,000 Branch unit) capsule vitamin C 2021-08 Yes 1000mg Take 1,000 [facility] with beni 1-02 mg by ity of hips 1,000 16:08: mouth. [place] mg tablet 20 Medical Branch calcium-vit 2021-08 Yes 2{tbl} Take 2 Un bo islas D 500 1-02 tablets by ity of mg(1,250mg) 16:08: mouth. [place] -200 unit 20 [facility] per tablet Branch vitamin 2021-08 Yes 1000ug Take 1,000 Un bo B-12 1,000 1-02 mcg by ity of mcg tablet 16:08: mouth. [place] 20 Medical Branch Docosahexan 2021-08 Yes Take by Uni vers oic 02 mouth. ity of Acid-Eicosa 16:08: [place] pent 20 Medical 120-180 mg Branch Cap cranberry 2021-08 Yes Take by Unive rs fruit 02 mouth. ity of concentrate 16:08: [place] (AZO 20 Medical CRANBERRY Branch ORAL) MULTIVITAMI 2021-08 Yes Take by Uni vers N ORAL 08-24 mouth. ity of 16:08: [address] Branch OMEGA 3,6,9 2021-08 Yes Take by Uni vers COMBINATION - mouth. ity of NO.7 ORAL 16:08: [place] 20 Medical Branch elderberry 2021-08 Yes 400mg Take 400 Un bo fruit 1-02 mg by ity of (ELDERBERRY 16:08: [place]. [place] [facility] Lactobacill 2021-08 Yes Take by Uni vers us 08-24 mouth. ity of acidophilus 16:08: [place] (PROBIOTIC 20 Medical ORAL) Branch Cholecalcif 2021-08 Yes Take by Uni vers bert, -02 mouth. ity of Vitamin D3, 16:08: [place] 50 mcg 20 Medical (2,000 Branch unit) capsule vitamin C 2021-08 Yes 1000mg Take 1,000 [facility] with beni 1-02 mg by ity of hips 1,000 16:08: mouth. [place] mg tablet 20 Medical Branch calcium-vit 2021-08 Yes 2{tbl} Take 2 Un bo islas D 500 1-02 tablets by ity of mg(1,250mg) 16:08: mouth. [place] -200 unit 20 [facility] per tablet Branch vitamin 2021-08 Yes 1000ug Take 1,000 Un bo B-12 1,000 1-02 mcg by ity of mcg tablet 16:08: mouth. [place] [address] [facility] Branch Docosahexan 2021-08 Yes Take by Uni vers oic 1-02 mouth. ity of Acid-Eicosa 16:08: [place] pent 20 Medical 120-180 mg Branch Cap cranberry 2021-08 Yes Take by [employer] rs fruit 1-02 mouth. ity of concentrate 16:08: [place] (AZO 20 Medical CRANBERRY Branch ORAL) MULTIVITAMI 2021-08 Yes Take by Uni vers N ORAL -02 mouth. ity of 16:08: [place] [address] [facility] Branch OMEGA 3,6,9 2021-08 Yes Take by Uni vers COMBINATION 08-24 mouth. ity of NO.7 ORAL 16:08: [place] 20 Medical Branch elderberry 2021-08 Yes 400mg Take 400 Un bo fruit 1-02 mg by ity of (ELDERBERRY 16:08: [place]. [place] 20 [facility] Lactobacill 2021-08 Yes Take by Uni vers us 02 mouth. ity of acidophilus 16:08: [place] (PROBIOTIC 20 Medical ORAL) Branch Cholecalcif 2021-08 Yes Take by Uni vers bert, -02 mouth. ity of Vitamin D3, 16:08: [place] 50 mcg 20 Medical (2,000 Branch unit) capsule vitamin C 2021-08 Yes 1000mg Take 1,000 [facility] with beni 1-02 mg by ity of hips 1,000 16:08: mouth. [place] mg tablet 20 Medical Branch calcium-vit 2021-08 Yes 2{tbl} Take 2 Un bo islas D 500 1-02 tablets by ity of mg(1,250mg) 16:08: mouth. [place] -200 unit 20 [facility] per tablet Branch vitamin 2021-08 Yes 1000ug Take 1,000 Un bo B-12 1,000 1-02 mcg by ity of mcg tablet 16:08: mouth. [place] 20 Medical Branch Docosahexan 2021-08 Yes Take by Uni vers oic 1-02 mouth. ity of Acid-Eicosa 16:08: [place] pent 20 Medical 120-180 mg Branch Cap cranberry 2021-08 Yes Take by Unive rs fruit 1-02 mouth. ity of concentrate 16:08: [place] (AZO 20 Medical CRANBERRY Branch ORAL) MULTIVITAMI 2021-08 Yes Take by Uni vers N ORAL 1-02 mouth. ity of 16:08: [place] [address] Medical Branch OMEGA 3,6,9 2021-08 Yes Take by Uni vers COMBINATION 1-02 mouth. ity of NO.7 ORAL 16:08: [place] [address] Medical Branch elderberry 2021-08 Yes 400mg Take 400 Un bo fruit 1-02 mg by ity of (ELDERBERRY 16:08: [place]. [place] [facility] Lactobacill 2021-08 Yes Take by Uni vers us 1-02 mouth. ity of acidophilus 16:08: [place] (PROBIOTIC 20 Medical ORAL) Branch Cholecalcif 2021-08 Yes Take by Uni vers bert, 1-02 mouth. ity of Vitamin D3, 16:08: [place] 50 mcg 20 Medical (2,000 Branch unit) capsule vitamin C 2021-08 Yes 1000mg Take 1,000 [facility] with beni 1-02 mg by ity of hips 1,000 16:08: mouth. [place] mg tablet Medical Branch calcium-vit 2021-08 Yes 2{tbl} Take 2 Un bo islas D 500 1-02 tablets by ity of mg(1,250mg) 16:08: mouth. [place] -200 unit 20 [facility] per tablet Branch vitamin 2021-08 Yes 1000ug Take 1,000 Un bo B-12 1,000 1-02 mcg by ity of mcg tablet 16:08: mouth. [place] [address] [facility] Branch Docosahexan 2021-08 Yes Take by Uni vers oic 1-02 mouth. ity of Acid-Eicosa 16:08: [place] pent 20 Medical 120-180 mg Branch Cap cranberry 2021-08 Yes Take by Unive rs fruit 1-02 mouth. ity of concentrate 16:08: [place] (AZO 20 Medical CRANBERRY Branch ORAL) MULTIVITAMI 2021-08 Yes Take by Uni vers N ORAL 1-02 mouth. ity of 16:08: [place] [address] Medical Branch OMEGA 3,6,9 2021-08 Yes Take by Uni vers COMBINATION 1-02 mouth. ity of NO.7 ORAL 16:08: [place] [address] Medical Branch elderberry 2021-08 Yes 400mg Take 400 Un bo fruit 1-02 mg by ity of (ELDERBERRY 16:08: [place]. [place] 20 [facility] Branch Lactobacill 2021-08 Yes Take by Uni vers us 08-24 mouth. ity of acidophilus 16:08: [place] (PROBIOTIC 20 Medical ORAL) Branch Cholecalcif 2021-08 Yes Take by Uni vers bert, -02 mouth. ity of Vitamin D3, 16:08: [place] 50 mcg 20 Medical (2,000 Branch unit) capsule vitamin C 2021-08 Yes 1000mg Take 1,000 [facility] with beni 1-02 mg by ity of hips 1,000 16:08: mouth. [place] mg tablet 20 Medical Branch calcium-vit 2021-08 Yes 2{tbl} Take 2 Un bo islas D 500 1-02 tablets by ity of mg(1,250mg) 16:08: mouth. [place] -200 unit 20 [facility] per tablet Branch vitamin 2021-08 Yes 1000ug Take 1,000 Un bo B-12 1,000 1-02 mcg by ity of mcg tablet 16:08: mouth. [place] 20 Medical Branch Docosahexan 2021-08 Yes Take by Uni vers oic 08-24 mouth. ity of Acid-Eicosa 16:08: [place] pent 20 Medical 120-180 mg Branch Cap cranberry 2021-08 Yes Take by Unive rs fruit - mouth. ity of concentrate 16:08: [place] (AZO 20 Medical CRANBERRY Branch ORAL) MULTIVITAMI 2021-08 Yes Take by Uni vers N ORAL 08-24 mouth. ity of 16:08: [address] Branch OMEGA 3,6,9 2021-08 Yes Take by Uni vers COMBINATION 08-24 mouth. ity of NO.7 ORAL 16:08: [place] 20 Medical Branch elderberry 2021-08 Yes 400mg Take 400 Un bo fruit 1-02 mg by ity of (ELDERBERRY 16:08: [place]. [place] 20 [facility] Branch Lactobacill 2021-08 Yes Take by Uni vers us - mouth. ity of acidophilus 16:08: [place] (PROBIOTIC 20 Medical ORAL) Branch Cholecalcif 2021-08 Yes Take by Uni vers bert, -02 mouth. ity of Vitamin D3, 16:08: [place] 50 mcg 20 Medical (2,000 Branch unit) capsule vitamin C 2021-08 Yes 1000mg Take 1,000 [facility] with beni 1-02 mg by ity of hips 1,000 16:08: mouth. [place] mg tablet 20 Medical Branch calcium-vit 2021-08 Yes 2{tbl} Take 2 Un bo islas D 500 1-02 tablets by ity of mg(1,250mg) 16:08: mouth. [place] -200 unit 20 [facility] per tablet Branch vitamin 2021-08 Yes 1000ug Take 1,000 Un bo B-12 1,000 1-02 mcg by ity of mcg tablet 16:08: mouth. [place] 20 Medical Branch Docosahexan 2021-08 Yes Take by Uni vers oic 1-02 mouth. ity of Acid-Eicosa 16:08: [place] pent 20 Medical 120-180 mg Branch Cap cranberry 2021-08 Yes Take by Unive rs fruit -02 mouth. ity of concentrate 16:08: [place] (AZO 20 Medical CRANBERRY Branch ORAL) MULTIVITAMI 2021-08 Yes Take by Uni vers N ORAL -02 mouth. ity of 16:08: [place] [address] Medical Branch OMEGA 3,6,9 2021-08 Yes Take by Uni vers COMBINATION 1-02 mouth. ity of NO.7 ORAL 16:08: [place] 20 Medical Branch elderberry 2021-08 Yes 400mg Take 400 Un bo fruit 1-02 mg by ity of (ELDERBERRY 16:08: [place]. [place] 20 [facility] Branch Lactobacill 2021-08 Yes Take by Uni vers us -02 mouth. ity of acidophilus 16:08: [place] (PROBIOTIC 20 Medical ORAL) Branch Cholecalcif 2021-08 Yes Take by Uni vers bert, 1-02 mouth. ity of Vitamin D3, 16:08: [place] 50 mcg 20 Medical (2,000 Branch unit) capsule vitamin C 2021-08 Yes 1000mg Take 1,000 [facility] with beni 1-02 mg by ity of hips 1,000 16:08: mouth. [place] mg tablet 20 Medical Branch calcium-vit 2021-08 Yes 2{tbl} Take 2 Un bo islas D 500 1-02 tablets by ity of mg(1,250mg) 16:08: mouth. [place] -200 unit 20 [facility] per tablet Branch vitamin 2021-08 Yes 1000ug Take 1,000 Un bo B-12 1,000 1-02 mcg by ity of mcg tablet 16:08: mouth. [place] [address] Medical Branch Docosahexan 2021-08 Yes Take by Uni vers oic 1-02 mouth. ity of Acid-Eicosa 16:08: [place] pent 20 Medical 120-180 mg Branch Cap cranberry 2021-08 Yes Take by Unive rs fruit 1-02 mouth. ity of concentrate 16:08: [place] (AZO 20 Medical CRANBERRY Branch ORAL) MULTIVITAMI 2021-08 Yes Take by Uni vers N ORAL -02 mouth. ity of 16:08: [place] [address] Medical Branch OMEGA 3,6,9 2021-08 Yes Take by Uni vers COMBINATION - mouth. ity of NO.7 ORAL 16:08: [place] [address] Medical Branch elderberry 2021-08 Yes 400mg Take 400 Un bo fruit 1-02 mg by ity of (ELDERBERRY 16:08: [place]. [place]AL[place] [facility] Branch Lactobacill 2021-08 Yes Take by Uni vers us 08-24 mouth. ity of acidophilus 16:08: [place] (PROBIOTIC 20 Medical ORAL) Branch Cholecalcif 2021-08 Yes Take by Uni vers bert, -02 mouth. ity of Vitamin D3, 16:08: [place] 50 mcg 20 Medical (2,000 Branch unit) capsule vitamin C 2021-08 Yes 1000mg Take 1,000 [facility] with beni 1-02 mg by ity of hips 1,000 16:08: mouth. [place] mg tablet Medical Branch calcium-vit 2021-08 Yes 2{tbl} Take 2 Un bo islas D 500 1-02 tablets by ity of mg(1,250mg) 16:08: mouth. [place] -200 unit 20 Medical per tablet Branch vitamin 2021-08 Yes 1000ug Take 1,000 Un bo B-12 1,000 1-02 mcg by ity of mcg tablet 16:08: mouth. [place] [address] Medical Branch Docosahexan 2021-08 Yes Take by Uni vers oic 1-02 mouth. ity of Acid-Eicosa 16:08: [place] pent 20 Medical 120-180 mg Branch Cap cranberry 2021-08 Yes Take by Un[facility] rs fruit 1-02 mouth. ity of concentrate 16:08: [place] (AZO 20 Medical CRANBERRY Branch ORAL) MULTIVITAMI 2021-08 Yes Take by Uni vers N ORAL 1-02 mouth. ity of 16:08: [place] [address] Medical Branch OMEGA 3,6,9 2021-08 Yes Take by Uni vers COMBINATION 1-02 mouth. ity of NO.7 ORAL 16:08: [place] [address] Medical Branch elderberry 2021-08 Yes 400mg Take 400 Un bo fruit 1-02 mg by ity of (ELDERBERRY 16:08: [place]. [place] [facility] Branch Lactobacill 2021-08 Yes Take by Uni vers us 1-02 mouth. ity of acidophilus 16:08: [place] (PROBIOTIC 20 Medical ORAL) Branch Cholecalcif 2021-08 Yes Take by Uni vers bert, 1-02 mouth. ity of Vitamin D3, 16:08: [place] 50 mcg 20 Medical (2,000 Branch unit) capsule vitamin C 2021-08 Yes 1000mg Take 1,000 [facility] with beni 1-02 mg by ity of hips 1,000 16:08: mouth. [place] mg tablet Medical Branch calcium-vit 2021-08 Yes 2{tbl} Take 2 Un bo islas D 500 1-02 tablets by ity of mg(1,250mg) 16:08: mouth. [place] -200 unit 20 [facility] per tablet Branch vitamin 2021-08 Yes 1000ug Take 1,000 Un bo B-12 1,000 1-02 mcg by ity of mcg tablet 16:08: mouth. [place] [address] Medical Branch Docosahexan 2021-08 Yes Take by Uni vers oic 1-02 mouth. ity of Acid-Eicosa 16:08: [place] pent 20 Medical 120-180 mg Branch Cap cranberry 2021-08 Yes Take by Un[facility] rs fruit 1-02 mouth. ity of concentrate 16:08: [place] (AZO 20 Medical CRANBERRY Branch ORAL) MULTIVITAMI 2021-08 Yes Take by Uni vers N ORAL 1-02 mouth. ity of 16:08: [place] [address] Medical Branch OMEGA 3,6,9 2021-08 Yes Take by Uni vers COMBINATION 1-02 mouth. ity of NO.7 ORAL 16:08: [place] [address] Medical Branch elderberry 2021-08 Yes 400mg Take 400 Un bo fruit 1-02 mg by ity of (ELDERBERRY 16:08: [place]. [place] [facility] Lactobacill 2021-08 Yes Take by Uni vers us 02 mouth. ity of acidophilus 16:08: [place] (PROBIOTIC 20 Medical ORAL) Branch Cholecalcif 2021-08 Yes Take by Uni vers bert, 02 mouth. ity of Vitamin D3, 16:08: [place] 50 mcg 20 Medical (2,000 Branch unit) capsule vitamin C 2021-08 Yes 1000mg Take 1,000 [facility] with beni 1-02 mg by ity of hips 1,000 16:08: mouth. [place] mg tablet 20 Medical Branch calcium-vit 2021-08 Yes 2{tbl} Take 2 Un bo islas D 500 1-02 tablets by ity of mg(1,250mg) 16:08: mouth. [place] -200 unit 20 [facility] per tablet Branch vitamin 2021-08 Yes 1000ug Take 1,000 Un bo B-12 1,000 1-02 mcg by ity of mcg tablet 16:08: mouth. [address] Branch Docosahexan 2021-08 Yes Take by Uni vers oic 08-24 mouth. ity of Acid-Eicosa 16:08: [place] pent 20 Medical 120-180 mg Branch Cap cranberry 2021-08 Yes Take by Un[facility] rs fruit - mouth. ity of concentrate 16:08: [place] (AZO 20 Medical CRANBERRY Branch ORAL) MULTIVITAMI 2021-08 Yes Take by Uni vers N ORAL 02 mouth. ity of 16:08: [address] Branch OMEGA 3,6,9 2021-08 Yes Take by Uni vers COMBINATION 08-24 mouth. ity of NO.7 ORAL 16:08: [place] [address] Medical Branch elderberry 2021-08 Yes 400mg Take 400 Un bo fruit 1-02 mg by ity of (ELDERBERRY 16:08: [place]. [place] 20 [facility] Lactobacill 2021-08 Yes Take by Uni vers us 02 mouth. ity of acidophilus 16:08: [place] (PROBIOTIC 20 Medical ORAL) Branch Cholecalcif 2021-08 Yes Take by Uni vers bert, -02 mouth. ity of Vitamin D3, 16:08: [place] 50 mcg 20 Medical (2,000 Branch unit) capsule vitamin C 2021-08 Yes 1000mg Take 1,000 [facility] with beni 1-02 mg by ity of hips 1,000 16:08: mouth. [place] mg tablet 20 Medical Branch calcium-vit 2021-08 Yes 2{tbl} Take 2 Un bo islas D 500 1-02 tablets by ity of mg(1,250mg) 16:08: [place]. [place] -200 unit 20 [facility] per tablet Branch vitamin 2021-08 Yes 1000ug Take 1,000 Un bo B-12 1,000 1-02 mcg by ity of mcg tablet 16:08: mouth. [place] [address] Medical Branch Docosahexan 2021-08 Yes Take by Uni vers oic 1-02 mouth. ity of Acid-E[place]osa 16:08: [place] pent 20 Medical 120-180 mg Branch Cap cranberry 2021-08 Yes Take by Unive rs fruit -02 mouth. ity of concentrate 16:08: [place] (AZO 20 Medical CRANBERRY Branch ORAL) MULTIVITAMI 2021-08 Yes Take by Uni vers N ORAL 02 mouth. ity of 16:08: [address] Branch OMEGA 3,6,9 2021-08 Yes Take by Uni vers COMBINATION 1-02 mouth. ity of NO.7 ORAL 16:08: [place] 20 Medical Branch elderberry 2021-08 Yes 400mg Take 400 Un bo fruit 1-02 mg by ity of (ELDERBERRY 16:08: [place]. [place] 20 [facility] Branch Lactobacill 2021-08 Yes Take by Uni vers us 1-02 mouth. ity of acidophilus 16:08: [place] (PROBIOTIC 20 Medical ORAL) Branch Cholecalcif 2021-08 Yes Take by [facility] vers bert, 1-02 mouth. ity of Vitamin D3, 16:08: [place] 50 mcg 20 Medical (2,000 Branch unit) capsule vitamin C 2021-08 Yes 1000mg Take 1,000 [facility] with beni 1-02 mg by ity of hips 1,000 16:08: mouth. [place] mg tablet 20 Medical Branch calcium-vit 2021-08 Yes 2{tbl} Take 2 Un bo islas D 500 1-02 tablets by ity of mg(1,250mg) 16:08: mouth. [place] -200 unit 20 [facility] per tablet Branch vitamin 2021-08 Yes 1000ug Take 1,000 Un bo B-12 1,000 1-02 mcg by ity of mcg tablet 16:08: mouth. [place] 20 Medical Branch Docosahexan 2021-08 Yes Take by [facility] vers oic 1-02 mouth. ity of Acid-Eicosa 16:08: [place] pent 20 Medical 120-180 mg Branch Cap cranberry 2021-08 Yes Take by Unive rs fruit 1-02 mouth. ity of concentrate 16:08: [place] (AZO 20 Medical CRANBERRY Branch ORAL) MULTIVITAMI 2021-08 Yes Take by Uni vers N ORAL 1-02 mouth. ity of 16:08: [place] 20 Medical Branch OMEGA 3,6,9 2021-08 Yes Take by [facility] vers COMBINATION 1-02 mouth. ity of NO.7 ORAL 16:08: [place] 20 Medical Branch elderberry 2021-08 Yes 400mg Take 400 Un bo fruit 1-02 mg by ity of (ELDERBERRY 16:08: [place]. [place] ORAL[place] 20 [facility] Branch Lactobacill 2021-08 Yes Take by Uni vers us -02 mouth. ity of acidophilus 16:08: [place] (PROBIOTIC 20 Medical ORAL) Branch Cholecalcif 2021-08 Yes Take by [facility] vers bert, 1-02 mouth. ity of Vitamin D3, 16:08: [place] 50 mcg 20 Medical (2,000 Branch unit) capsule vitamin C 2021-08 Yes 1000mg Take 1,000 [facility] with beni 1-02 mg by ity of hips 1,000 16:08: mouth. [place] mg tablet 20 Medical Branch calcium-vit 2021-08 Yes 2{tbl} Take 2 Un bo islas D 500 1-02 tablets by ity of mg(1,250mg) 16:08: mouth. [place] -200 unit 20 [facility] per tablet Branch vitamin 2021-08 Yes 1000ug Take 1,000 Un bo B-12 1,000 1-02 mcg by ity of mcg tablet 16:08: mouth. [place] 20 Medical Branch Docosahexan 2021-08 Yes Take by [facility] vers oic 1-02 mouth. ity of Acid-Eicosa 16:08: [place] pent 20 Medical 120-180 mg Branch Cap cranberry 2021-08 Yes Take by Unive rs fruit 1-02 mouth. ity of concentrate 16:08: [place] (AZO 20 Medical CRANBERRY Branch ORAL) MULTIVITAMI 2021-08 Yes Take by Uni vers N ORAL 1-02 mouth. ity of 16:08: [place] 20 Medical Branch OMEGA 3,6,9 2021-08 Yes Take by Uni vers COMBINATION 1-02 mouth. ity of NO.7 ORAL 16:08: [place] [address] Medical Branch elderberry 2021-08 Yes 400mg Take 400 Un bo fruit 1-02 mg by ity of (ELDERBERRY 16:08: mouth. [place] ORAL[place] [facility] Branch Lactobacill 2021-08 Yes Take by Uni vers us 1-02 mouth. ity of acidophilus 16:08: [place] (PROBIOTIC 20 Medical ORAL) Branch Cholecalcif 2021-08 Yes Take by [facility] vers bert, 1-02 mouth. ity of Vitamin D3, 16:08: [place] 50 mcg 20 Medical (2,000 Branch unit) capsule vitamin C 2021-08 Yes 1000mg Take 1,000 [facility] with beni 1-02 mg by ity of hips 1,000 16:08: mouth. [place] mg tablet Medical Branch calcium-vit 2021-08 Yes 2{tbl} Take 2 Un bo islas D 500 1-02 tablets by ity of mg(1,250mg) 16:08: mouth. [place] -200 unit 20 Medical per tablet Branch vitamin 2021-08 Yes 1000ug Take 1,000 Un bo B-12 1,000 1-02 mcg by ity of mcg tablet 16:08: mouth. [place] [address] Medical Branch Docosahexan 2021-08 Yes Take by [facility] vers oic 1-02 mouth. ity of Acid-Eicosa 16:08: [place] pent 20 Medical 120-180 mg Branch Cap cranberry 2021-08 Yes Take by Unive rs fruit 1-02 mouth. ity of concentrate 16:08: [place] (AZO 20 Medical CRANBERRY Branch ORAL) MULTIVITAMI 2021-08 Yes Take by Uni vers N ORAL 1-02 mouth. ity of 16:08: [place] [address] Medical Branch OMEGA 3,6,9 2021-08 Yes Take by Uni vers COMBINATION 1-02 mouth. ity of NO.7 ORAL 16:08: [place] [address] Medical Branch elderberry 2021-08 Yes 400mg Take 400 Un bo fruit 1-02 mg by ity of (ELDERBERRY 16:08: mouth. [place] ORAL[place] [facility] Branch Lactobacill 2021-08 Yes Take by Uni vers us 1-02 mouth. ity of acidophilus 16:08: [place] (PROBIOTIC 20 Medical ORAL) Branch Cholecalcif 2021-08 Yes Take by [facility] vers bert, 1-02 mouth. ity of Vitamin D3, 16:08: [place] 50 mcg 20 Medical (2,000 Branch unit) capsule vitamin C 2021-08 Yes 1000mg Take 1,000 [facility] with beni 1-02 mg by ity of hips 1,000 16:08: mouth. [place] mg tablet 20 Medical Branch calcium-vit 2021-08 Yes 2{tbl} Take 2 Un bo islas D 500 1-02 tablets by ity of mg(1,250mg) 16:08: mouth. [place] -200 unit 20 Medical per tablet Branch vitamin 2021-08 Yes 1000ug Take 1,000 Un bo B-12 1,000 1-02 mcg by ity of mcg tablet 16:08: mouth. [place] [address] Medical Branch Docosahexan 2021-08 Yes Take by [facility] vers oic -02 mouth. ity of Acid-Eicosa 16:08: [place] pent 20 Medical 120-180 mg Branch Cap cranberry 2021-08 Yes Take by Unive rs fruit -02 mouth. ity of concentrate 16:08: [place] (AZO 20 Medical CRANBERRY Branch ORAL) MULTIVITAMI 2021-08 Yes Take by Uni vers N ORAL 1-02 mouth. ity of 16:08: [address] Branch OMEGA 3,6,9 2021-08 Yes Take by Uni vers COMBINATION 1-02 mouth. ity of NO.7 ORAL 16:08: [place] [address] Medical Branch elderberry 2021-08 Yes 400mg Take 400 Un bo fruit 1-02 mg by ity of (ELDERBERRY 16:08: mouth. [place] ORAL[place] [facility] Branch Lactobacill 2021-08 Yes Take by Uni vers us -02 mouth. ity of acidophilus 16:08: [place] (PROBIOTIC 20 Medical ORAL) Branch Cholecalcif 2021-08 Yes Take by [facility] vers bert, 1-02 mouth. ity of Vitamin D3, 16:08: [place] 50 mcg 20 Medical (2,000 Branch unit) capsule vitamin C 2021-08 Yes 1000mg Take 1,000 [facility] with beni 1-02 mg by ity of hips 1,000 16:08: mouth. [place] mg tablet 20 Medical Branch calcium-vit 2021-08 Yes 2{tbl} Take 2 Un bo islas D 500 1-02 tablets by ity of mg(1,250mg) 16:08: mouth. [place] -200 unit 20 [facility] per tablet Branch vitamin 2021-08 Yes 1000ug Take 1,000 Un bo B-12 1,000 1-02 mcg by ity of mcg tablet 16:08: mouth. [place] [address] Medical Branch Docosahexan 2021-08 Yes Take by [facility] vers oic 1-02 mouth. ity of Acid-Eicosa 16:08: [place] pent 20 Medical 120-180 mg Branch Cap cranberry 2021-08 Yes Take by Un[facility] rs fruit 1-02 mouth. ity of concentrate 16:08: [place] (AZO 20 Medical CRANBERRY Branch ORAL) MULTIVITAMI 2021-08 Yes Take by Uni vers N ORAL -02 mouth. ity of 16:08: [place] [address] Medical Branch OMEGA 3,6,9 2021-08 Yes Take by Uni vers COMBINATION 02 mouth. ity of NO.7 ORAL 16:08: [place] [address] Medical Branch elderberry 2021-08 Yes 400mg Take 400 Un bo fruit 1-02 mg by ity of (ELDERBERRY 16:08: mouth. [place] ORAL[place] [facility] Branch Lactobacill 2021-08 Yes Take by Uni vers us -02 mouth. ity of acidophilus 16:08: [place] (PROBIOTIC 20 Medical ORAL) Branch Cholecalcif 2021-08 Yes Take by Uni vers bert, -02 mouth. ity of Vitamin D3, 16:08: [place] 50 mcg 20 Medical (2,000 Branch unit) capsule vitamin C 2021-08 Yes 1000mg Take 1,000 [facility] with beni 1-02 mg by ity of hips 1,000 16:08: mouth. [place] mg tablet 20 Medical Branch calcium-vit 2021-08 Yes 2{tbl} Take 2 Un bo islas D 500 1-02 tablets by ity of mg(1,250mg) 16:08: mouth. [place] -200 unit 20 [facility] per tablet Branch vitamin 2021-08 Yes 1000ug Take 1,000 Un bo B-12 1,000 1-02 mcg by ity of mcg tablet 16:08: mouth. [place] [address] Medical Branch Docosahexan 2021-08 Yes Take by [facility] vers oic 1-02 mouth. ity of Acid-Eicosa 16:08: [place] pent 20 Medical 120-180 mg Branch Cap cranberry 2021-08 Yes Take by Unive rs fruit 1-02 mouth. ity of concentrate 16:08: [place] (AZO 20 Medical CRANBERRY Branch ORAL) MULTIVITAMI 2021-08 Yes Take by Uni vers N ORAL 1-02 mouth. ity of 16:08: [place] [address] Medical Branch OMEGA 3,6,9 2021-08 Yes Take by Uni vers COMBINATION 1-02 mouth. ity of NO.7 ORAL 16:08: [place] [address] Medical Branch elderberry 2021-08 Yes 400mg Take 400 Un bo fruit 1-02 mg by ity of (ELDERBERRY 16:08: mouth. [place] ORAL[place] [facility] Branch Lactobacill 2021-08 Yes Take by Uni vers us 1-02 mouth. ity of acidophilus 16:08: [place] (PROBIOTIC 20 Medical ORAL) Branch Cholecalcif 2021-08 Yes Take by [facility] vers bert, 1-02 mouth. ity of Vitamin D3, 16:08: [place] 50 mcg 20 Medical (2,000 Branch unit) capsule vitamin C 2021-08 Yes 1000mg Take 1,000 [facility] with beni 1-02 mg by ity of hips 1,000 16:08: mouth. [place] mg tablet 20 Medical Branch calcium-vit 2021-08 Yes 2{tbl} Take 2 Un bo islas D 500 1-02 tablets by ity of mg(1,250mg) 16:08: mouth. [place] -200 unit 20 Medical per tablet Branch vitamin 2021-08 Yes 1000ug Take 1,000 Un bo B-12 1,000 1-02 mcg by ity of mcg tablet 16:08: mouth. [place] [address] Medical Branch Docosahexan 2021-08 Yes Take by Uni vers oic 1-02 mouth. ity of Acid-Eicosa 16:08: [place] pent 20 Medical 120-180 mg Branch Cap cranberry 2021-08 Yes Take by Unive rs fruit 1-02 mouth. ity of concentrate 16:08: [place] (AZO 20 Medical CRANBERRY Branch ORAL) MULTIVITAMI 2021-08 Yes Take by Uni vers N ORAL 1-02 mouth. ity of 16:08: [address] Branch OMEGA 3,6,9 2021-08 Yes Take by Uni vers COMBINATION 1-02 mouth. ity of NO.7 ORAL 16:08: [place] [address] Medical Branch elderberry 2021-08 Yes 400mg Take 400 Un bo fruit 1-02 mg by ity of (ELDERBERRY 16:08: [place]. [place] ORAL[place] 20 [facility] Branch Lactobacill 2021-08 Yes Take by Uni vers us -02 mouth. ity of acidophilus 16:08: [place] (PROBIOTIC 20 Medical ORAL) Branch Cholecalcif 2021-08 Yes Take by Uni vers bert, -02 mouth. ity of Vitamin D3, 16:08: [place] 50 mcg 20 Medical (2,000 Branch unit) capsule vitamin C 2021-08 Yes 1000mg Take 1,000 [facility] with beni 1-02 mg by ity of hips 1,000 16:08: mouth. [place] mg tablet 20 Medical Branch calcium-vit 2021-08 Yes 2{tbl} Take 2 Un bo islas D 500 1-02 tablets by ity of mg(1,250mg) 16:08: mouth. [place] -200 unit 20 [facility] per tablet Branch vitamin 2021-08 Yes 1000ug Take 1,000 Un bo B-12 1,000 1-02 mcg by ity of mcg tablet 16:08: mouth. [place] 20 Medical Branch Docosahexan 2021-08 Yes Take by Uni vers oic 1-02 mouth. ity of Acid-Eicosa 16:08: [place] pent 20 Medical 120-180 mg Branch Cap cranberry 2021-08 Yes Take by Un[facility] rs fruit -02 mouth. ity of concentrate 16:08: [place] (AZO 20 Medical CRANBERRY Branch ORAL) MULTIVITAMI 2021-08 Yes Take by Uni vers N ORAL -02 mouth. ity of 16:08: [address] Branch OMEGA 3,6,9 2021-08 Yes Take by Uni vers COMBINATION 1-02 mouth. ity of NO.7 ORAL 16:08: [place] [address] Medical Branch elderberry 2021-08 Yes 400mg Take 400 Un bo fruit 1-02 mg by ity of (ELDERBERRY 16:08: mouth. [place] ORAL[place] 20 [facility] Branch Lactobacill 2021-08 Yes Take by Uni vers us -02 mouth. ity of acidophilus 16:08: [place] (PROBIOTIC 20 Medical ORAL) Branch Cholecalcif 2021-08 Yes Take by Uni vers bert, 1-02 mouth. ity of Vitamin D3, 16:08: [place] 50 mcg 20 Medical (2,000 Branch unit) capsule vitamin C 2021-08 Yes 1000mg Take 1,000 [facility] with beni 1-02 mg by ity of hips 1,000 16:08: mouth. [place] mg tablet 20 Medical Branch calcium-vit 2021-08 Yes 2{tbl} Take 2 Un bo islas D 500 1-02 tablets by ity of mg(1,250mg) 16:08: mouth. [place] -200 unit 20 Medical per tablet Branch vitamin 2021-08 Yes 1000ug Take 1,000 Un bo B-12 1,000 1-02 mcg by ity of mcg tablet 16:08: mouth. [place] 20 Medical Branch Docosahexan 2021-08 Yes Take by [facility] vers oic 1-02 mouth. ity of Acid-Eicosa 16:08: [place] pent 20 Medical 120-180 mg Branch Cap cranberry 2021-08 Yes Take by Un[facility] rs fruit -02 mouth. ity of concentrate 16:08: [place] (AZO 20 Medical CRANBERRY Branch ORAL) MULTIVITAMI 2021-08 Yes Take by Uni vers N ORAL 1-02 mouth. ity of 16:08: [address] Branch OMEGA 3,6,9 2021-08 Yes Take by Uni vers COMBINATION 1-02 mouth. ity of NO.7 ORAL 16:08: [place] [address] Medical Branch elderberry 2021-08 Yes 400mg Take 400 Un bo fruit 1-02 mg by ity of (ELDERBERRY 16:08: mouth. [place] ORAL) [facility] Branch Lactobacill 2021-08 Yes Take by Uni vers us -02 mouth. ity of acidophilus 16:08: [place] (PROBIOTIC 20 Medical ORAL) Branch Cholecalcif 2021-08 Yes Take by Uni vers bert, 1-02 mouth. ity of Vitamin D3, 16:08: [place] 50 mcg 20 Medical (2,000 Branch unit) capsule vitamin C 2021-08 Yes 1000mg Take 1,000 [facility] with beni 1-02 mg by ity of hips 1,000 16:08: mouth. [place] mg tablet 20 Medical Branch calcium-vit 2021-08 Yes 2{tbl} Take 2 Un bo islas D 500 1-02 tablets by ity of mg(1,250mg) 16:08: mouth. [place] -200 unit 20 Medical per tablet Branch vitamin 2021-08 Yes 1000ug Take 1,000 Un bo B-12 1,000 1-02 mcg by ity of mcg tablet 16:08: mouth. [place] [address] Medical Branch Docosahexan 2021-08 Yes Take by Uni vers oic 1-02 mouth. ity of Acid-Eicosa 16:08: [place] pent 20 Medical 120-180 mg Branch Cap cranberry 2021-08 Yes Take by Un[facility] rs fruit 1-02 mouth. ity of concentrate 16:08: [place] (AZO 20 Medical CRANBERRY Branch ORAL) MULTIVITAMI 2021-08 Yes Take by Uni vers N ORAL -02 mouth. ity of 16:08: [place] [address] Medical Branch OMEGA 3,6,9 2021-08 Yes Take by Uni vers COMBINATION 08-24 mouth. ity of NO.7 ORAL 16:08: [place] 20 Medical Branch elderberry 2021-08 Yes 400mg Take 400 Un bo fruit 1-02 mg by ity of (ELDERBERRY 16:08: mouth. [place] ORAL[place] 20 [facility] Branch Lactobacill 2021-08 Yes Take by Uni vers us 02 mouth. ity of acidophilus 16:08: [place] (PROBIOTIC 20 Medical ORAL) Branch Cholecalcif 2021-08 Yes Take by Uni vers bert, -02 mouth. ity of Vitamin D3, 16:08: [place] 50 mcg 20 Medical (2,000 Branch unit) capsule vitamin C 2021-08 Yes 1000mg Take 1,000 [facility] with beni 1-02 mg by ity of hips 1,000 16:08: mouth. [place] mg tablet 20 Medical Branch calcium-vit 2021-08 Yes 2{tbl} Take 2 Un bo islas D 500 1-02 tablets by ity of mg(1,250mg) 16:08: mouth. [place] -200 unit 20 Medical per tablet Branch vitamin 2021-08 Yes 1000ug Take 1,000 Un bo B-12 1,000 1-02 mcg by ity of mcg tablet 16:08: mouth. [place] 20 Medical Branch Docosahexan 2021-08 Yes Take by Uni vers oic 1-02 mouth. ity of Acid-Eicosa 16:08: [place] pent 20 Medical 120-180 mg Branch Cap cranberry 2021-08 Yes Take by Un[facility] rs fruit 1-02 mouth. ity of concentrate 16:08: [place] (AZO 20 Medical CRANBERRY Branch ORAL) MULTIVITAMI 2021-08 Yes Take by Uni vers N ORAL 1-02 mouth. ity of 16:08: 20 Medical Branch OMEGA 3,6,9 2021-08 Yes Take by Uni vers COMBINATION 1-02 mouth. ity of NO.7 ORAL 16:08: [place] 20 Medical Branch elderberry 2021-08 Yes 400mg Take 400 Un bo fruit 1-02 mg by ity of (ELDERBERRY 16:08: [place]. [place] ORAL[place] 20 [facility] Branch Lactobacill 2021-08 Yes Take by Uni vers us -02 mouth. ity of acidophilus 16:08: (PROBIOTIC 20 Medical ORAL) Branch HYDROcodone 2021-08 Yes [id number] 1{tbl} Take 1 Un bo -acetaminop 1-02 tablet by ity of hen 5-325 00:00: mouth [place] mg tablet 00 every 6 Medical (six) Branch hours as needed for Pain (scale 4-6) or Pain (scale 7-10) for up to 15 doses. Indication s: acute pain cyclobenzap 2021-08 Yes [id number] 5mg Take 1 [facility] rine 5 mg 1-02 tablet by ity o f tablet 00:00: mouth 2 00 (two) Medical times Branch daily as needed for Muscle Spasms for up to 20 doses. HYDROcodone 2021-08 Yes [id number] 1{tbl} Take 1 Un bo -acetaminop 1-02 tablet by ity of hen 5-325 00:00: mouth [place] mg tablet 00 every 6 Medical (six) Branch hours as needed for Pain (scale 4-6) or Pain (scale 7-10) for up to 15 doses. Indication s: acute pain cyclobenzap 2021-08 Yes [id number] 5mg Take 1 [facility] rine 5 mg 1-02 tablet by ity o f tablet 00:00: mouth 2 [place] 00 (two) Medical times Branch daily as needed for Muscle Spasms for up to 20 doses. HYDROcodone 2021-08 Yes [id number] 1{tbl} Take 1 Un bo -acetaminop 1-02 tablet by ity of hen 5-325 00:00: mouth [place] mg tablet 00 every 6 Medical (six) Branch hours as needed for Pain (scale 4-6) or Pain (scale 7-10) for up to 15 doses. Indication s: acute pain cyclobenzap 2021-08 Yes [id number] 5mg Take 1 [facility] rine 5 mg 1-02 tablet by ity o f tablet 00:00: mouth 2 [place] 00 (two) Medical times Branch daily as needed for Muscle Spasms for up to 20 doses. HYDROcodone 2021-08 Yes [id number] 1{tbl} Take 1 Un bo -acetaminop 1-02 tablet by ity of hen 5-325 00:00: mouth [place] mg tablet 00 every 6 Medical (six) Branch hours as needed for Pain (scale 4-6) or Pain (scale 7-10) for up to 15 doses. Indication s: acute pain cyclobenzap 2021-08 Yes [id number] 5mg Take 1 [facility] rine 5 mg 1-02 tablet by ity o f tablet 00:00: mouth 2 [place] 00 (two) Medical times Branch daily as needed for Muscle Spasms for up to 20 doses. HYDROcodone 2021-08 Yes [id number] 1{tbl} Take 1 Un bo -acetaminop 1-02 tablet by ity of hen 5-325 00:00: mouth [place] mg tablet 00 every 6 Medical (six) Branch hours as needed for Pain (scale 4-6) or Pain (scale 7-10) for up to 15 doses. Indication s: acute pain cyclobenzap 2021-08 Yes [id number] 5mg Take 1 [facility] rine 5 mg 1-02 tablet by ity o f tablet 00:00: mouth 2 [place] 00 (two) Medical times Branch daily as needed for Muscle Spasms for up to 20 doses. HYDROcodone 2021-08 Yes [id number] 1{tbl} Take 1 Un bo -acetaminop 1-02 tablet by ity of hen 5-325 00:00: mouth [place] mg tablet 00 every 6 Medical (six) Branch hours as needed for Pain (scale 4-6) or Pain (scale 7-10) for up to 15 doses. Indication s: acute pain cyclobenzap 2021-08 Yes [id number] 5mg Take 1 [facility] rine 5 mg 1-02 tablet by ity o f tablet 00:00: mouth 2 [place] 00 (two) Medical times Branch daily as needed for Muscle Spasms for up to 20 doses. HYDROcodone 2021-08 Yes [id number] 1{tbl} Take 1 Un bo -acetaminop 1-02 tablet by ity of hen 5-325 00:00: mouth [place] mg tablet 00 every 6 Medical (six) Branch hours as needed for Pain (scale 4-6) or Pain (scale 7-10) for up to 15 doses. Indication s: acute pain cyclobenzap 2021-08 Yes [id number] 5mg Take 1 [facility] rine 5 mg 1-02 tablet by ity o f tablet 00:00: mouth 2 [place] 00 (two) Medical times Branch daily as needed for Muscle Spasms for up to 20 doses. HYDROcodone 2021-08 Yes [id number] 1{tbl} Take 1 Un bo -acetaminop 1-02 tablet by ity of hen 5-325 00:00: mouth [place] mg tablet 00 every 6 Medical (six) Branch hours as needed for Pain (scale 4-6) or Pain (scale 7-10) for up to 15 doses. Indication s: acute pain cyclobenzap 2021-08 Yes [id number] 5mg Take 1 [facility] rine 5 mg 1-02 tablet by ity o f tablet 00:00: mouth 2 [place] 00 (two) Medical times Branch daily as needed for Muscle Spasms for up to 20 doses. HYDROcodone 2021-08 Yes [id number] 1{tbl} Take 1 Un bo -acetaminop 1-02 tablet by ity of hen 5-325 00:00: mouth [place] mg tablet 00 every 6 Medical (six) Branch hours as needed for Pain (scale 4-6) or Pain (scale 7-10) for up to 15 doses. Indication s: acute pain cyclobenzap 2021-08 Yes [id number] 5mg Take 1 [facility] rine 5 mg 1-02 tablet by ity o f tablet 00:00: mouth 2 [place] 00 (two) Medical times Branch daily as needed for Muscle Spasms for up to 20 doses. HYDROcodone 2021-08 Yes [id number] 1{tbl} Take 1 Un bo -acetaminop 1-02 tablet by ity of hen 5-325 00:00: mouth [place] mg tablet 00 every 6 Medical (six) Branch hours as needed for Pain (scale 4-6) or Pain (scale 7-10) for up to 15 doses. Indication s: acute pain cyclobenzap 2021-08 Yes [id number] 5mg Take 1 [facility] rine 5 mg 1-02 tablet by ity o f tablet 00:00: mouth 2 [place] 00 (two) Medical times Branch daily as needed for Muscle Spasms for up to 20 doses. HYDROcodone 2021-08 Yes [id number] 1{tbl} Take 1 Un bo -acetaminop 1-02 tablet by ity of hen 5-325 00:00: mouth [place] mg tablet 00 every 6 Medical (six) Branch hours as needed for Pain (scale 4-6) or Pain (scale 7-10) for up to 15 doses. Indication s: acute pain cyclobenzap 2021-08 Yes [id number] 5mg Take 1 [facility] rine 5 mg 1-02 tablet by ity o f tablet 00:00: mouth 2 [place] 00 (two) Medical times Branch daily as needed for Muscle Spasms for up to 20 doses. HYDROcodone 2021-08 Yes [id number] 1{tbl} Take 1 Un bo -acetaminop 1-02 tablet by ity of hen 5-325 00:00: mouth [place] mg tablet 00 every 6 Medical (six) Branch hours as needed for Pain (scale 4-6) or Pain (scale 7-10) for up to 15 doses. Indication s: acute pain cyclobenzap 2021-08 Yes [id number] 5mg Take 1 [facility] rine 5 mg 1-02 tablet by ity o f tablet 00:00: mouth 2 [place] 00 (two) Medical times Branch daily as needed for Muscle Spasms for up to 20 doses. HYDROcodone 2021-08 Yes [id number] 1{tbl} Take 1 Un bo -acetaminop 1-02 tablet by ity of hen 5-325 00:00: mouth [place] mg tablet 00 every 6 Medical (six) Branch hours as needed for Pain (scale 4-6) or Pain (scale 7-10) for up to 15 doses. Indication s: acute pain cyclobenzap 2021-08 Yes [id number] 5mg Take 1 [facility] rine 5 mg 1-02 tablet by ity o f tablet 00:00: mouth 2 [place] 00 (two) Medical times Branch daily as needed for Muscle Spasms for up to 20 doses. HYDROcodone 2021-08 Yes [id number] 1{tbl} Take 1 Un bo -acetaminop 1-02 tablet by ity of hen 5-325 00:00: mouth [place] mg tablet 00 every 6 Medical (six) Branch hours as needed for Pain (scale 4-6) or Pain (scale 7-10) for up to 15 doses. Indication s: acute pain cyclobenzap 2021-08 Yes [id number] 5mg Take 1 [facility] rine 5 mg 1-02 tablet by ity o f tablet 00:00: mouth 2 [place] 00 (two) Medical times Branch daily as needed for Muscle Spasms for up to 20 doses. HYDROcodone 2021-08 Yes [id number] 1{tbl} Take 1 Un bo -acetaminop 1-02 tablet by ity of hen 5-325 00:00: mouth [place] mg tablet 00 every 6 Medical (six) Branch hours as needed for Pain (scale 4-6) or Pain (scale 7-10) for up to 15 doses. Indication s: acute pain cyclobenzap 2021-08 Yes [id number] 5mg Take 1 [facility] rine 5 mg 1-02 tablet by ity o f tablet 00:00: mouth 2 [place] 00 (two) Medical times Branch daily as needed for Muscle Spasms for up to 20 doses. HYDROcodone 2021-08 Yes [id number] 1{tbl} Take 1 Un bo -acetaminop 1-02 tablet by ity of hen 5-325 00:00: mouth [place] mg tablet 00 every 6 Medical (six) Branch hours as needed for Pain (scale 4-6) or Pain (scale 7-10) for up to 15 doses. Indication s: acute pain cyclobenzap 2021-08 Yes [id number] 5mg Take 1 [facility] rine 5 mg 1-02 tablet by ity o f tablet 00:00: mouth 2 [place] 00 (two) Medical times Branch daily as needed for Muscle Spasms for up to 20 doses. HYDROcodone 2021-08 Yes [id number] 1{tbl} Take 1 Un bo -acetaminop 1-02 tablet by ity of hen 5-325 00:00: mouth [place] mg tablet 00 every 6 Medical (six) Branch hours as needed for Pain (scale 4-6) or Pain (scale 7-10) for up to 15 doses. Indication s: acute pain cyclobenzap 2021-08 Yes [id number] 5mg Take 1 [facility] rine 5 mg 1-02 tablet by ity o f tablet 00:00: mouth 2 [place] 00 (two) Medical times Branch daily as needed for Muscle Spasms for up to 20 doses. HYDROcodone 2021-08 Yes [id number] 1{tbl} Take 1 Un bo -acetaminop 1-02 tablet by ity of hen 5-325 00:00: mouth [place] mg tablet 00 every 6 Medical (six) Branch hours as needed for Pain (scale 4-6) or Pain (scale 7-10) for up to 15 doses. Indication s: acute pain cyclobenzap 2021-08 Yes [id number] 5mg Take 1 [facility] r[facility] 5 mg 1-02 tablet by ity o f tablet 00:00: mouth 2 [place] 00 (two) Medical times Branch daily as needed for Muscle Spasms for up to 20 doses. HYDROcodone 2021-08 Yes [id number] 1{tbl} Take 1 Un bo -acetaminop 1-02 tablet by ity of hen 5-325 00:00: mouth [place] mg tablet 00 every 6 Medical (six) Branch hours as needed for Pain (scale 4-6) or Pain (scale 7-10) for up to 15 doses. Indication s: acute pain cyclobenzap 2021-08 Yes [id number] 5mg Take 1 [facility] rine 5 mg 1-02 tablet by ity o f tablet 00:00: mouth 2 [place] 00 (two) Medical times Branch daily as needed for Muscle Spasms for up to 20 doses. HYDROcodone 2021-08 Yes [id number] 1{tbl} Take 1 Un bo -acetaminop 1-02 tablet by ity of hen 5-325 00:00: mouth [place] mg tablet 00 every 6 Medical (six) Branch hours as needed for Pain (scale 4-6) or Pain (scale 7-10) for up to 15 doses. Indication s: acute pain cyclobenzap 2021-08 Yes [id number] 5mg Take 1 [facility] rine 5 mg 1-02 tablet by ity o f tablet 00:00: mouth 2 [place] 00 (two) Medical times Branch daily as needed for Muscle Spasms for up to 20 doses. HYDROcodone 2021-08 Yes [id number] 1{tbl} Take 1 [facility] bo -acetaminop 1-02 tablet by [facility] hen 5-325 00:00: mouth [place] mg tablet 00 every 6 Medical (six) Branch hours as needed for Pain (scale 4-6) or Pain (scale 7-10) for up to 15 doses. Indication s: acute pain cyclobenzap 2021-08 Yes [id number] 5mg Take 1 [facility] rine 5 mg 1-02 tablet by [facility] o f tablet 00:00: mouth 2 [place] 00 (two) Medical times Branch daily as needed for Muscle Spasms for up to 20 doses. HYDROcodone 2021-08 Yes 4647 1{tbl} Take 1 [facility] bo -acetaminop 1-02 tablet by [facility] of hen 5-325 00:00: mouth [place] mg tablet 00 every 6 Medical (six) Branch hours as needed for Pain (scale 4-6) or Pain (scale 7-10) for up to 15 doses. Indication s: acute pain cyclobenzap 2021-08 Yes [id number] 5mg Take 1 [facility] rine 5 mg 1-02 tablet by ity o f tablet 00:00: mouth 2 [place] 00 (two) Medical times Branch daily as needed for Muscle Spasms for up to 20 doses. HYDROcodone 2021-08 Yes 4647 1{tbl} Take 1 [facility] bo -acetaminop 1-02 tablet by [facility] hen 5-325 00:00: mouth [place] mg tablet 00 every 6 Medical (six) Branch hours as needed for Pain (scale 4-6) or Pain (scale 7-10) for up to 15 doses. Indication s: acute pain cyclobenzap 2021-08 Yes [id number] 5mg Take 1 [facility] rine 5 mg 1-02 tablet by ity o f tablet 00:00: mouth 2 [place] 00 (two) Medical times Branch daily as needed for Muscle Spasms for up to 20 doses. HYDROcodone 2021-08 Yes 4647 1{tbl} Take 1 [facility] bo -acetaminop 1-02 tablet by [facility] of hen 5-325 00:00: mouth [place] mg tablet 00 every 6 Medical (six) Branch hours as needed for Pain (scale 4-6) or Pain (scale 7-10) for up to 15 doses. Indication s: acute pain cyclobenzap 2021-08 Yes [id number] 5mg Take 1 [facility] rine 5 mg 1-02 tablet by ity o f tablet 00:00: mouth 2 [place] 00 (two) Medical times Branch daily as needed for Muscle Spasms for up to 20 doses. HYDROcodone 2021-08 Yes 4647 1{tbl} Take 1 [facility] bo -acetaminop 1-02 tablet by [facility] of hen 5-325 00:00: mouth [place] mg tablet 00 every 6 Medical (six) Branch hours as needed for Pain (scale 4-6) or Pain (scale 7-10) for up to 15 doses. Indication s: acute pain cyclobenzap 2021-08 Yes [id number] 5mg Take 1 [facility] rine 5 mg 1-02 tablet by [facility] o f tablet 00:00: mouth 2 [place] 00 (two) Medical times Branch daily as needed for Muscle Spasms for up to 20 doses. HYDROcodone 2021-08 Yes 4647 1{tbl} Take 1 [facility] bo -acetaminop 1-02 tablet by [facility] of hen 5-325 00:00: mouth [place] mg tablet 00 every 6 Medical (six) Branch hours as needed for Pain (scale 4-6) or Pain (scale 7-10) for up to 15 doses. Indication s: acute pain cyclobenzap 2021-08 Yes [id number] 5mg Take 1 [facility] rine 5 mg 1-02 tablet by ity o f tablet 00:00: mouth 2 [place] 00 (two) Medical times Branch daily as needed for Muscle Spasms for up to 20 doses. HYDROcodone 2021-08 Yes 4647 1{tbl} Take 1 [facility] bo -acetaminop 1-02 tablet by [facility] of hen 5-325 00:00: mouth [place] mg tablet 00 every 6 Medical (six) Branch hours as needed for Pain (scale 4-6) or Pain (scale 7-10) for up to 15 doses. Indication s: acute pain cyclobenzap 2021-08 Yes [id number] 5mg Take 1 [facility] rine 5 mg 1-02 tablet by it[facility] o f tablet 00:00: mouth 2 [place] 00 (two) Medical times Branch daily as needed for Muscle Spasms for up to 20 doses. HYDROcodone 2021-08 Yes 4647 1{tbl} Take 1 [facility] bo -acetaminop 1-02 tablet by [facility] of hen 5-325 00:00: mouth [place] mg tablet 00 every 6 Medical (six) Branch hours as needed for Pain (scale 4-6) or Pain (scale 7-10) for up to 15 doses. Indication s: acute pain cyclobenzap 2021-08 Yes [id number] 5mg Take 1 [facility] rine 5 mg 08-24 tablet by it[facility] o f tablet 00:00: mouth 2 [place] 00 (two) Medical times [place] daily as needed for Muscle Spasms for up to 20 doses. predniSONE 2021-08- No [id number] 20mg Take 1 [facility] 20 mg 08-24 11-05 tablet by ity of tablet 00:00: 04:59 mouth in [place] 00 :00 the Medical morning [place] and 1 tablet in the evening. Do all this for 2 days. gabapentin 2021-08 Yes [id number] 100mg Take 1 [facility] 100 mg 0-18 capsule by ity of capsule 00:00: mouth in [place] [address] the Medical morning [place] and 1 capsule at noon and 1 capsule in the evening. gabapentin 2021-08 Yes [id number] 100mg Take 1 [facility] 100 mg 0-18 capsule by ity of capsule 00:00: mouth in [place] [address] the Medical morning [place] and 1 capsule at noon and 1 capsule in the evening. gabapentin 2021-08 Yes [id number] 100mg Take 1 [facility] 100 mg 0-18 capsule by ity of capsule 00:00: mouth in [place] [address] the [facility] morning [place] and 1 capsule at noon and 1 capsule in the evening. gabapentin 2021-08 Yes [id number] 100mg Take 1 [facility] 100 mg 0-18 capsule by ity of capsule 00:00: mouth in [address] morning [place] and 1 capsule at noon and 1 capsule in the evening. gabapentin 2021-08 Yes [id number] 100mg Take 1 [facility] 100 mg 0-18 capsule by ity of capsule 00:00: mouth in [place] [address] the [facility] morning [place] and 1 capsule at noon and 1 capsule in the evening. gabapentin 2021-08 Yes [id number] 100mg Take 1 [facility] 100 mg 0-18 capsule by ity of capsule 00:00: mouth in [address] morning [place] and 1 capsule at noon and 1 capsule in the evening. gabapentin 2021-08 Yes [id number] 100mg Take 1 [facility] 100 mg 0-18 capsule by ity of capsule 00:00: mouth in [address] morning [place] and 1 capsule at noon and 1 capsule in the evening. gabapentin 2021-08 Yes [id number] 100mg Take 1 [facility] 100 mg 0-18 capsule by ity of capsule 00:00: mouth in [address] morning Branch and 1 capsule at noon and 1 capsule in the evening. gabapentin 202- Yes [id number] 100mg Take 1 [facility] 100 mg 0-18 capsule by ity of capsule 00:00: mouth in [place] [address] the [facility] morning [place] and 1 capsule at noon and 1 capsule in the evening. gabapentin 202-1 Yes [id number] 100mg Take 1 [facility] 100 mg 0-18 capsule by ity of capsule 00:00: mouth in [place] [address] the [facility] morning [place] and 1 capsule at noon and 1 capsule in the evening. gabapentin 2021- Yes [id number] 100mg Take 1 [facility] 100 mg 0-18 capsule by ity of capsule 00:00: mouth in [address] morning [place] and 1 capsule at noon and 1 capsule in the evening. gabapentin 2021-1 Yes [id number] 100mg Take 1 [facility] 100 mg 0-18 capsule by ity of capsule 00:00: mouth in [address] morning [place] and 1 capsule at noon and 1 capsule in the evening. gabapentin 2021- Yes [id number] 100mg Take 1 [facility] 100 mg 0-18 capsule by ity of capsule 00:00: mouth in [address] morning [place] and 1 capsule at noon and 1 capsule in the evening. gabapentin 2021-1 Yes [id number] 100mg Take 1 [facility] 100 mg 0-18 capsule by ity of capsule 00:00: mouth in [address] morning [place] and 1 capsule at noon and 1 capsule in the evening. gabapentin 2021-1 Yes [id number] 100mg Take 1 [facility] 100 mg 0-18 capsule by ity of capsule 00:00: mouth in [address] morning [place] and 1 capsule at noon and 1 capsule in the evening. gabapentin 2021-1 Yes [id number] 100mg Take 1 [facility] 100 mg 0-18 capsule by ity of capsule 00:00: mouth in [address] morning [place] and 1 capsule at noon and 1 capsule in the evening. gabapentin 202-1 Yes [id number] 100mg Take 1 [facility] 100 mg 0-18 capsule by ity of capsule 00:00: mouth in [address] morning [place] and 1 capsule at noon and 1 capsule in the evening. gabapentin 202-1 Yes [id number] 100mg Take 1 [facility] 100 mg 0-18 capsule by ity of capsule 00:00: mouth in [address] morning Branch and 1 capsule at noon and 1 capsule in the evening. gabapentin 202- Yes [id number] 100mg Take 1 [facility] 100 mg 0-18 capsule by ity of capsule 00:00: mouth in [place] [address] the [facility] morning [place] and 1 capsule at noon and 1 capsule in the evening. gabapentin 202-1 Yes [id number] 100mg Take 1 [facility] 100 mg 0-18 capsule by ity of capsule 00:00: mouth in [place] [address] the [facility] morning [place] and 1 capsule at noon and 1 capsule in the evening. gabapentin 2021- Yes [id number] 100mg Take 1 [facility] 100 mg 0-18 capsule by ity of capsule 00:00: mouth in [address] morning [place] and 1 capsule at noon and 1 capsule in the evening. gabapentin 2021-1 Yes [id number] 100mg Take 1 [facility] 100 mg 0-18 capsule by ity of capsule 00:00: mouth in [address] morning [place] and 1 capsule at noon and 1 capsule in the evening. gabapentin 2021- Yes [id number] 100mg Take 1 [facility] 100 mg 0-18 capsule by ity of capsule 00:00: mouth in [address] morning [place] and 1 capsule at noon and 1 capsule in the evening. gabapentin 2021-1 Yes [id number] 100mg Take 1 [facility] 100 mg 0-18 capsule by ity of capsule 00:00: mouth in [address] morning [place] and 1 capsule at noon and 1 capsule in the evening. gabapentin 2021-1 Yes [id number] 100mg Take 1 [facility] 100 mg 0-18 capsule by ity of capsule 00:00: mouth in [address] morning [place] and 1 capsule at noon and 1 capsule in the evening. gabapentin 2021-1 Yes [id number] 100mg Take 1 [facility] 100 mg 0-18 capsule by ity of capsule 00:00: mouth in [address] morning [place] and 1 capsule at noon and 1 capsule in the evening. gabapentin 202-1 Yes [id number] 100mg Take 1 [facility] 100 mg 0-18 capsule by ity of capsule 00:00: mouth in [address] morning [place] and 1 capsule at noon and 1 capsule in the evening. gabapentin 202-1 Yes [id number] 100mg Take 1 [facility] 100 mg 0-18 capsule by ity of capsule 00:00: mouth in [address] morning Branch and 1 capsule at noon and 1 capsule in the evening. gabapentin 2021-08 Yes [id number] 100mg Take 1 [facility] 100 mg 0-18 capsule by ity of capsule 00:00: mouth in [place] [address] the Medical morning Branch and 1 capsule at noon and 1 capsule in the evening. gabapentin 2021-1 Yes [id number] 100mg Take 1 [facility] 100 mg 0-18 capsule by ity of capsule 00:00: mouth in [place] [address] the Medical morning Branch and 1 capsule at noon and 1 capsule in the evening. gabapentin 2021-08 Yes [id number] 100mg Take 1 [facility] 100 mg 0-18 capsule by ity of capsule 00:00: mouth in [place] [address] the [facility] morning Branch and 1 capsule at noon and 1 capsule in the evening. gabapentin 2021-08 Yes [id number] 100mg Take 1 [facility] 100 mg 0-18 capsule by ity of capsule 00:00: mouth in [place] [address] the [facility] morning [place] and 1 capsule at noon and 1 capsule in the evening. gabapentin 2021-08 Yes [id number] 100mg Take 1 [facility] 100 mg 0-18 capsule by ity of capsule 00:00: mouth in [place] [address] the [facility] morning [place] and 1 capsule at noon and 1 capsule in the evening. gabapentin 2021-08 Yes [id number] 100mg Take 1 [facility] 100 mg 0-18 capsule by ity of capsule 00:00: mouth in [place] [address] the [facility] morning [place] and 1 capsule at noon and 1 capsule in the evening. methocarbam 2021-0 Yes [id number] 500mg Take 1 [facility] oL 500 mg 8-15 tablet by ity o f tablet 00:00: mouth 4 [place] [address] ([facility]) [facility] daily as needed for Pain (scale 7-10). gabapentin 2021-0 Yes [id number] 100mg Take 1 [facility] 100 mg 8-15 capsule by ity of capsule 00:00: mouth in [place] [address] the [facility] morning [place] and 1 capsule at noon and 1 capsule in the evening. atorvastati 2021-0 Yes [id number] 10mg Take 1 [facility] n 10 mg 8-15 tablet by ity of tablet 00:00: mouth at [place] [address] bedtime. Medical Branch methocarbam 2021-0 Yes [id number] 500mg Take 1 [facility] oL 500 mg 8-15 tablet by ity o f tablet 00:00: mouth 4 [place] [address] (four) Medical times Branch daily as needed for Pain (scale 7-10). gabapentin 2022-0 Yes [id number] 100mg Take 1 [facility] 100 mg 8-15 capsule by ity of capsule 00:00: mouth in [place] 00 the Medical morning Branch and 1 capsule at noon and 1 capsule in the evening. atorvastati 2-0 Yes [id number] 10mg Take 1 [facility] n 10 mg 8-15 tablet by ity of tablet 00:00: mouth at [place] 00 bedtime. Medical Branch methocarbam 2021-0 Yes [id number] 500mg Take 1 [facility] oL 500 mg 8-15 tablet by ity o f tablet 00:00: mouth 4 [place] (four) Medical times [place] daily as needed for Pain (scale 7-10). gabapentin 2021-0 Yes [id number] 100mg Take 1 [facility] 100 mg 8-15 capsule by ity of capsule 00:00: mouth in [place] [address] the Medical morning Branch and 1 capsule at noon and 1 capsule in the evening. atorvastati 2021-0 Yes [id number] 10mg Take 1 [facility] n 10 mg 8-15 tablet by ity of tablet 00:00: mouth at [place] [address] bedtime. Medical Branch methocarbam 2021-0 Yes [id number] 500mg Take 1 [facility] oL 500 mg 8-15 tablet by ity o f tablet 00:00: mouth [place] [address] ([facility]) [facility] times [place] daily as needed for Pain (scale 7-10). gabapentin 2021-0 Yes [id number] 100mg Take 1 [facility] 100 mg 8-15 capsule by ity of capsule 00:00: mouth in [place] the Medical morning Branch and 1 capsule at noon and 1 capsule in the evening. atorvastati 2-0 Yes [id number] 10mg Take 1 [facility] n 10 mg 8-15 tablet by ity of tablet 00:00: mouth at [place] [address] bedtime. Medical Branch methocarbam 2-0 Yes [id number] 500mg Take 1 [facility] oL 500 mg 8-15 tablet by ity o f tablet 00:00: mouth 4 [place] [address] (four) Medical times [place] daily as needed for Pain (scale 7-10). gabapentin 2-0 Yes [id number] 100mg Take 1 [facility] 100 mg 8-15 capsule by ity of capsule 00:00: mouth in [place] [address] the Medical morning Branch and 1 capsule at noon and 1 capsule in the evening. atorvastati 2021-0 Yes [id number] 10mg Take 1 [facility] n 10 mg 8-15 tablet by ity of tablet 00:00: mouth at [place] 00 bedtime. Medical Branch methocarbam 2021-0 Yes [id number] 500mg Take 1 [facility] oL 500 mg 8-15 tablet by ity o f tablet 00:00: mouth 4 [place] [address] (four) Medical times [place] daily as needed for Pain (scale 7-10). gabapentin 2021-0 Yes [id number] 100mg Take 1 [facility] 100 mg 8-15 capsule by ity of capsule 00:00: mouth in [place] 00 the Medical morning Branch and 1 capsule at noon and 1 capsule in the evening. atorvastati 2021-0 Yes [id number] 10mg Take 1 [facility] n 10 mg 8-15 tablet by ity of tablet 00:00: mouth at [place] [address] bedtime. Medical Branch methocarbam 2021-0 Yes [id number] 500mg Take 1 [facility] oL 500 mg 8-15 tablet by ity o f tablet 00:00: mouth 4 [place] [address] ([facility]) [facility] times [place] daily as needed for Pain (scale 7-10). gabapentin 2021-0 Yes [id number] 100mg Take 1 [facility] 100 mg 8-15 capsule by ity of capsule 00:00: mouth in [place] the Medical morning Branch and 1 capsule at noon and 1 capsule in the evening. atorvastati 2021-0 Yes [id number] 10mg Take 1 [facility] n 10 mg 8-15 tablet by ity of tablet 00:00: mouth at [place] [address] bedtime. Medical Branch methocarbam 2021-0 Yes [id number] 500mg Take 1 [facility] oL 500 mg 8-15 tablet by ity o f tablet 00:00: mouth 4 [place] [address] ([facility]) [facility] times [place] daily as needed for Pain (scale 7-10). gabapentin 2021-0 Yes [id number] 100mg Take 1 [facility] 100 mg 8-15 capsule by ity of capsule 00:00: mouth in [place] [address] the Medical morning Branch and 1 capsule at noon and 1 capsule in the evening. atorvastati 2021-0 Yes [id number] 10mg Take 1 [facility] n 10 mg 8-15 tablet by ity of tablet 00:00: mouth at [place] [address] bedtime. Medical Branch methocarbam 2021-0 Yes [id number] 500mg Take 1 [facility] oL 500 mg 8-15 tablet by ity o f tablet 00:00: mouth 4 (four) Medical times Branch daily as needed for Pain (scale 7-10). atorvastati 0 Yes [id number] 10mg Take 1 [facility] n 10 mg 8-15 tablet by ity of tablet 00:00: mouth at [place] 00 bedtime. Medical Branch methocarbam Yes [id number] 500mg Take 1 [facility] oL 500 mg 8-15 tablet by ity o f tablet 00:00: mouth 4 (four) Medical times Branch daily as needed for Pain (scale 7-10). atorvastati Yes [id number] 10mg Take 1 [facility] n 10 mg 8-15 tablet by ity of tablet 00:00: mouth at [place] bedtime. Medical Branch methocarbam Yes [id number] 500mg Take 1 [facility] oL 500 mg 8-15 tablet by ity o f tablet 00:00: mouth (four) Medical times Branch daily as needed for Pain (scale 7-10). atorvastati Yes [id number] 10mg Take 1 [facility] n 10 mg 8-15 tablet by ity of tablet 00:00: mouth at [place] bedtime. Medical Branch methocarbam Yes [id number] 500mg Take 1 [facility] oL 500 mg 8-15 tablet by ity o f tablet 00:00: mouth (four) Medical times Branch daily as needed for Pain (scale 7-10). atorvastati 0 Yes [id number] 10mg Take 1 [facility] n 10 mg 8-15 tablet by ity of tablet 00:00: mouth at [place] bedtime. Medical Branch methocarbam Yes [id number] 500mg Take 1 [facility] oL 500 mg 8-15 tablet by ity o f tablet 00:00: mouth (four) Medical times Branch daily as needed for Pain (scale 7-10). atorvastati 0 Yes [id number] 10mg Take 1 [facility] n 10 mg 8-15 tablet by ity of tablet 00:00: mouth at [place] 00 bedtime. Medical Branch methocarbam Yes [id number] 500mg Take 1 [facility] oL 500 mg 8-15 tablet by ity o f tablet 00:00: mouth (four) Medical times Branch daily as needed for Pain (scale 7-10). atorvastati 2021-0 Yes [id number] 10mg Take 1 [facility] n 10 mg 8-15 tablet by ity of tablet 00:00: mouth at bedtime. Medical Branch methocarbam 0 Yes [id number] 500mg Take 1 [facility] oL 500 mg 8-15 tablet by ity o f tablet 00:00: mouth (four) Medical times Branch daily as needed for Pain (scale 7-10). atorvastati 0 Yes [id number] 10mg Take 1 [facility] n 10 mg 8-15 tablet by ity of tablet 00:00: mouth at bedtime. Medical Branch methocarbam 0 Yes [id number] 500mg Take 1 [facility] oL 500 mg 8-15 tablet by ity o f tablet 00:00: mouth (four) Medical times Branch daily as needed for Pain (scale 7-10). atorvastati 0 Yes [id number] 10mg Take 1 [facility] n 10 mg 8-15 tablet by ity of tablet 00:00: mouth at bedtime. Medical Branch methocarbam Yes [id number] 500mg Take 1 [facility] oL 500 mg 8-15 tablet by ity o f tablet 00:00: mouth (four) Medical times Branch daily as needed for Pain (scale 7-10). atorvastati 2021-0 Yes [id number] 10mg Take 1 [facility] n 10 mg 8-15 tablet by ity of tablet 00:00: mouth at bedtime. Medical Branch methocarbam 0 Yes [id number] 500mg Take 1 [facility] oL 500 mg 8-15 tablet by ity o f tablet 00:00: mouth (four) Medical times Branch daily as needed for Pain (scale 7-10). atorvastati 2021-0 Yes [id number] 10mg Take 1 [facility] n 10 mg 8-15 tablet by ity of tablet 00:00: mouth at bedtime. Medical Branch methocarbam Yes [id number] 500mg Take 1 [facility] oL 500 mg 8-15 tablet by ity o f tablet 00:00: mouth (four) Medical times Branch daily as needed for Pain (scale 7-10). atorvastati 0 Yes [id number] 10mg Take 1 [facility] n 10 mg 8-15 tablet by ity of tablet 00:00: mouth at 00 bedtime. Medical Branch methocarbam 0 Yes [id number] 500mg Take 1 [facility] oL 500 mg 8-15 tablet by ity o f tablet 00:00: mouth 4 (four) Medical times Branch daily as needed for Pain (scale 7-10). atorvastati 0 Yes [id number] 10mg Take 1 [facility] n 10 mg 8-15 tablet by ity of tablet 00:00: mouth at 00 bedtime. Medical Branch methocarbam Yes [id number] 500mg Take 1 [facility] oL 500 mg 8-15 tablet by ity o f tablet 00:00: mouth (four) Medical times Branch daily as needed for Pain (scale 7-10). atorvastati Yes [id number] 10mg Take 1 [facility] n 10 mg 8-15 tablet by ity of tablet 00:00: mouth at bedtime. Medical Branch methocarbam Yes [id number] 500mg Take 1 [facility] oL 500 mg 8-15 tablet by ity o f tablet 00:00: mouth (four) Medical times Branch daily as needed for Pain (scale 7-10). atorvastati Yes [id number] 10mg Take 1 [facility] n 10 mg 8-15 tablet by ity of tablet 00:00: mouth at bedtime. Medical Branch methocarbam Yes [id number] 500mg Take 1 [facility] oL 500 mg 8-15 tablet by ity o f tablet 00:00: mouth (four) Medical times Branch daily as needed for Pain (scale 7-10). atorvastati 0 Yes [id number] 10mg Take 1 [facility] n 10 mg 8-15 tablet by ity of tablet 00:00: mouth at bedtime. Medical Branch methocarbam Yes [id number] 500mg Take 1 [facility] oL 500 mg 8-15 tablet by ity o f tablet 00:00: mouth (four) Medical times Branch daily as needed for Pain (scale 7-10). atorvastati Yes [id number] 10mg Take 1 [facility] n 10 mg 8-15 tablet by ity of tablet 00:00: mouth at bedtime. Medical Branch methocarbam Yes [id number] 500mg Take 1 [facility] oL 500 mg 8-15 tablet by ity o f tablet 00:00: mouth 4 (four) Medical times Branch daily as needed for Pain (scale 7-10). atorvastati Yes [id number] 10mg Take 1 [facility] n 10 mg 8-15 tablet by ity of tablet 00:00: mouth at 00 bedtime. Medical Branch methocarbam Yes [id number] 500mg Take 1 [facility] oL 500 mg 8-15 tablet by ity o f tablet 00:00: mouth (four) Medical times Branch daily as needed for Pain (scale 7-10). atorvastati Yes [id number] 10mg Take 1 [facility] n 10 mg 8-15 tablet by ity of tablet 00:00: mouth at bedtime. Medical Branch methocarbam Yes [id number] 500mg Take 1 [facility] oL 500 mg 8-15 tablet by ity o f tablet 00:00: mouth (four) Medical times Branch daily as needed for Pain (scale 7-10). atorvastati Yes [id number] 10mg Take 1 [facility] n 10 mg 8-15 tablet by ity of tablet 00:00: mouth at bedtime. Medical Branch methocarbam Yes [id number] 500mg Take 1 [facility] oL 500 mg 8-15 tablet by ity o f tablet 00:00: mouth (four) Medical times Branch daily as needed for Pain (scale 7-10). atorvastati Yes [id number] 10mg Take 1 [facility] n 10 mg 8-15 tablet by ity of tablet 00:00: mouth at 00 bedtime. Medical Branch methocarbam Yes [id number] 500mg Take 1 [facility] oL 500 mg 8-15 tablet by ity o f tablet 00:00: mouth 4 (four) Medical times Branch daily as needed for Pain (scale 7-10). atorvastati Yes [id number] 10mg Take 1 [facility] n 10 mg 8-15 tablet by ity of tablet 00:00: mouth at bedtime. Medical Branch methocarbam 2021-0 Yes [id number] 500mg Take 1 [facility] oL 500 mg 8-15 tablet by ity o f tablet 00:00: mouth (four) Medical times Branch daily as needed for Pain (scale 7-10). atorvastati 2021-0 Yes [id number] 10mg Take 1 [facility] n 10 mg 8-15 tablet by ity of tablet 00:00: mouth at bedtime. Medical Branch methocarbam 0 Yes [id number] 500mg Take 1 [facility] oL 500 mg 8-15 tablet by ity o f tablet 00:00: mouth (four) Medical times Branch daily as needed for Pain (scale 7-10). atorvastati 2021-0 Yes [id number] 10mg Take 1 [facility] n 10 mg 8-15 tablet by ity of tablet 00:00: mouth at bedtime. Medical Branch methocarbam 0 Yes [id number] 500mg Take 1 [facility] oL 500 mg 8-15 tablet by ity o f tablet 00:00: mouth (four) Medical times Branch daily as needed for Pain (scale 7-10). atorvastati 2021-0 Yes [id number] 10mg Take 1 [facility] n 10 mg 8-15 tablet by ity of tablet 00:00: mouth at bedtime. Medical Branch methocarbam 0 Yes [id number] 500mg Take 1 [facility] oL 500 mg 8-15 tablet by ity o f tablet 00:00: mouth (four) Medical times Branch daily as needed for Pain (scale 7-10). atorvastati 2021-0 Yes [id number] 10mg Take 1 [facility] n 10 mg 8-15 tablet by ity of tablet 00:00: mouth at bedtime. Medical Branch methocarbam 0 Yes [id number] 500mg Take 1 [facility] oL 500 mg 8-15 tablet by ity o f tablet 00:00: mouth (four) Medical times Branch daily as needed for Pain (scale 7-10). methocarbam 2021-0 Yes [id number] 500mg Take 1 [facility] oL 500 mg 8-15 tablet by ity o f tablet 00:00: mouth (four) Medical times Branch daily as needed for Pain (scale 7-10). methocarbam 2-0 Yes [id number] 500mg Take 1 [facility] oL 500 mg 8-15 tablet by ity o f tablet 00:00: mouth (four) Medical times Branch daily as needed for Pain (scale 7-10). methocarbam 2-0 Yes [id number] 500mg Take 1 [facility] oL 500 mg 8-15 tablet by ity o f tablet 00:00: mouth (four) Medical times Branch daily as needed for Pain (scale 7-10). methocarbam 2021-0 Yes [id number] 500mg Take 1 [facility] oL 500 mg 8-15 tablet by ity o f tablet 00:00: mouth (four) Medical times Branch daily as needed for Pain (scale 7-10). methocarbam 2021-0 Yes [id number] 500mg Take 1 [facility] oL 500 mg 8-15 tablet by ity o f tablet 00:00: mouth (four) Medical times Branch daily as needed for Pain (scale 7-10). methocarbam 2021-0 Yes [id number] 500mg Take 1 [facility] oL 500 mg 8-15 tablet by [facility] o f tablet 00:00: mouth (four) Medical times Branch daily as needed for Pain (scale 7-10). methocarbam 2-0 Yes [id number] 500mg Take 1 [facility] oL 500 mg 8-15 tablet by [facility] o f tablet 00:00: mouth (four) Medical times Branch daily as needed for Pain (scale 7-10). methocarbam 2021-0 Yes [id number] 500mg Take 1 [facility] oL 500 mg 8-15 tablet by [facility] o f tablet 00:00: mouth (four) Medical times Branch daily as needed for Pain (scale 7-10). methocarbam 2022-0 Yes [id number] 500mg Take 1 [facility] oL 500 mg 8-15 tablet by [facility] o f tablet 00:00: mouth (four) Medical times Branch daily as needed for Pain (scale 7-10). atorvastati 2-0 2023- No [id number] 10mg Take 1 [facility] n 10 mg 8-15 -06 tablet by ity of tablet 00:00: 00:00 mouth at [place] 00 :00 bedtime. Medical Branch atorvastati 0 3- No [id number] 10mg Take 1 [facility] n 10 mg 8-15 02-06 tablet by ity of tablet 00:00: 00:00 mouth at [place] 00 :00 bedtime. Medical Branch gabapentin 2021-0 2- No [id number] 100mg Take 1 [facility] 100 mg 8-15 10-18 capsule by ity of capsule 00:00: 00:00 mouth in [place] 00 :00 the Medical morning Branch and 1 capsule at noon and 1 capsule in the evening. cyclobenzap 0 Yes [id number] 5mg Take 1 [facility] rine 5 mg 8-11 tablet by ity o f tablet 00:00: mouth [place] 00 every 12 Medical (twelve) Branch hours as needed for Muscle Spasms. cyclobenzap 0 Yes [id number] 5mg Take 1 [facility] rine 5 mg 8-11 tablet by ity o f tablet 00:00: mouth [place] 00 every 12 Medical (twelve) Branch hours as needed for Muscle Spasms. cyclobenzap 2021-0 Yes [id number] 5mg Take 1 [facility] rine 5 mg 8-11 tablet by ity o f tablet 00:00: mouth [place] 00 every 12 Medical (twelve) Branch hours as needed for Muscle Spasms. cyclobenzap 2021-0 Yes [id number] 5mg Take 1 [facility] rine 5 mg 8-11 tablet by ity o f tablet 00:00: mouth [place] 00 every 12 Medical (twelve) Branch hours as needed for Muscle Spasms. cyclobenzap 2021-0 Yes [id number] 5mg Take 1 [facility] rine 5 mg 8-11 tablet by ity o f tablet 00:00: mouth [place] 00 every 12 Medical (twelve) Branch hours as needed for Muscle Spasms. cyclobenzap 2021-0 Yes [id number] 5mg Take 1 [facility] rine 5 mg 8-11 tablet by ity o f tablet 00:00: mouth [place] 00 every 12 Medical (twelve) Branch hours as needed for Muscle Spasms. cyclobenzap 2021-0 Yes [id number] 5mg Take 1 [facility] rine 5 mg 8-11 tablet by ity o f tablet 00:00: mouth [place] 00 every 12 Medical (twelve) Branch hours as needed for Muscle Spasms. cyclobenzap 2022-0 Yes [id number] 5mg Take 1 [facility] rine 5 mg 8-11 tablet by ity o f tablet 00:00: mouth [place] 00 every 12 Medical (twelve) Branch hours as needed for Muscle Spasms. cyclobenzap 2021-0 Yes [id number] 5mg Take 1 [facility] rine 5 mg 8-11 tablet by ity o f tablet 00:00: mouth [place] 00 every 12 Medical (twelve) Branch hours as needed for Muscle Spasms. cyclobenzap 2021-0 Yes [id number] 5mg Take 1 [facility] rine 5 mg 8-11 tablet by [facility] o f tablet 00:00: mouth [place] 00 every 12 Medical (twelve) Branch hours as needed for Muscle Spasms. cyclobenzap 2021-0 Yes [id number] 5mg Take 1 [facility] rine 5 mg 8-11 tablet by ity o f tablet 00:00: mouth [place] 00 every 12 Medical (twelve) Branch hours as needed for Muscle Spasms. cyclobenzap 2021-0 Yes [id number] 5mg Take 1 [facility] rine 5 mg 8-11 tablet by ity o f tablet 00:00: mouth [place] 00 every 12 Medical (twelve) Branch hours as needed for Muscle Spasms. cyclobenzap 2021-0 Yes [id number] 5mg Take 1 [facility] rine 5 mg 8-11 tablet by ity o f tablet 00:00: mouth [place] 00 every 12 Medical (twelve) Branch hours as needed for Muscle Spasms. cyclobenzap 2-0 Yes [id number] 5mg Take 1 [facility] rine 5 mg 8-11 tablet by ity o f tablet 00:00: mouth [place] 00 every 12 Medical (twelve) Branch hours as needed for Muscle Spasms. cyclobenzap 2-0 Yes [id number] 5mg Take 1 [facility] rine 5 mg 8-11 tablet by ity o f tablet 00:00: mouth [place] 00 every 12 Medical (twelve) Branch hours as needed for Muscle Spasms. cyclobenzap 2-0 Yes [id number] 5mg Take 1 [facility] rine 5 mg 8-11 tablet by ity o f tablet 00:00: mouth [place] 00 every 12 Medical (twelve) Branch hours as needed for Muscle Spasms. cyclobenzap 2-0 Yes [id number] 5mg Take 1 [facility] rine 5 mg 8-11 tablet by ity o f tablet 00:00: mouth [place] 00 every 12 Medical (twelve) Branch hours as needed for Muscle Spasms. cyclobenzap 2022-0 Yes [id number] 5mg Take 1 [facility] rine 5 mg 8-11 tablet by ity o f tablet 00:00: mouth [place] 00 every 12 Medical (twelve) Branch hours as needed for Muscle Spasms. cyclobenzap 2-0 Yes [id number] 5mg Take 1 [facility] rine 5 mg 8-11 tablet by ity o f tablet 00:00: mouth [place] 00 every 12 Medical (twelve) Branch hours as needed for Muscle Spasms. cyclobenzap 2-0 Yes [id number] 5mg Take 1 [facility] rine 5 mg 8-11 tablet by ity o f tablet 00:00: mouth [place] 00 every 12 Medical (twelve) Branch hours as needed for Muscle Spasms. cyclobenzap 2-0 Yes [id number] 5mg Take 1 [facility] rine 5 mg 8-11 tablet by [facility] o f tablet 00:00: mouth [place] 00 every 12 Medical (twelve) Branch hours as needed for Muscle Spasms. cyclobenzap 2-0 Yes [id number] 5mg Take 1 [facility] rine 5 mg 8-11 tablet by ity o f tablet 00:00: mouth [place] 00 every 12 Medical (twelve) Branch hours as needed for Muscle Spasms. cyclobenzap 2-0 Yes [id number] 5mg Take 1 [facility] rine 5 mg 8-11 tablet by ity o f tablet 00:00: mouth [place] 00 every 12 Medical (twelve) Branch hours as needed for Muscle Spasms. cyclobenzap 2022-0 Yes [id number] 5mg Take 1 [facility] rine 5 mg 8-11 tablet by it[facility] o f tablet 00:00: mouth [place] 00 every 12 Medical (twelve) Branch hours as needed for Muscle Spasms. cyclobenzap 2022-0 Yes [id number] 5mg Take 1 [facility] rine 5 mg 8-11 tablet by [facility]y o f tablet 00:00: mouth [place] 00 every 12 Medical (twelve) Branch hours as needed for Muscle Spasms. cyclobenzap 2022-0 Yes [id number] 5mg Take 1 [facility] rine 5 mg 8-11 tablet by ity o f tablet 00:00: mouth [place] 00 every 12 Medical (twelve) Branch hours as needed for Muscle Spasms. cyclobenzap 2022-0 Yes [id number] 5mg Take 1 [facility] rine 5 mg 8-11 tablet by ity o f tablet 00:00: mouth [place] 00 every 12 Medical (twelve) Branch hours as needed for Muscle Spasms. cyclobenzap 2022-0 Yes [id number] 5mg Take 1 [facility] rine 5 mg 8-11 tablet by ity o f tablet 00:00: mouth [place] 00 every 12 Medical (twelve) Branch hours as needed for Muscle Spasms. cyclobenzap 2-0 Yes [id number] 5mg Take 1 [facility] rine 5 mg 8-11 tablet by [facility] o f tablet 00:00: mouth [place] 00 every 12 Medical (twelve) Branch hours as needed for Muscle Spasms. cyclobenzap 2-0 Yes [id number] 5mg Take 1 [facility] rine 5 mg 8-11 tablet by ity o f tablet 00:00: mouth [place] 00 every 12 Medical (twelve) Branch hours as needed for Muscle Spasms. cyclobenzap 2-0 Yes [id number] 5mg Take 1 [facility] rine 5 mg 8-11 tablet by ity o f tablet 00:00: mouth [place] 00 every 12 Medical (twelve) Branch hours as needed for Muscle Spasms. cyclobenzap 2021-0 Yes [id number] 5mg Take 1 [facility] rine 5 mg 8-11 tablet by ity o f tablet 00:00: mouth [place] 00 every 12 Medical (twelve) Branch hours as needed for Muscle Spasms. cyclobenzap 2-0 Yes [id number] 5mg Take 1 [facility] rine 5 mg 8-11 tablet by ity o f tablet 00:00: mouth [place] 00 every 12 Medical (twelve) Branch hours as needed for Muscle Spasms. cyclobenzap 2-0 Yes [id number] 5mg Take 1 [facility] rine 5 mg 8-11 tablet by ity o f tablet 00:00: mouth [place] 00 every 12 Medical (twelve) Branch hours as needed for Muscle Spasms. cyclobenzap 2022-0 Yes [id number] 5mg Take 1 [facility] rine 5 mg 8-11 tablet by ity o f tablet 00:00: mouth [place] 00 every 12 Medical (twelve) Branch hours as needed for Muscle Spasms. cyclobenzap 2022-0 Yes [id number] 5mg Take 1 [facility] rine 5 mg 8-11 tablet by ity o f tablet 00:00: mouth [place] 00 every 12 Medical (twelve) Branch hours as needed for Muscle Spasms. cyclobenzap 2021-0 Yes [id number] 5mg Take 1 [facility] rine 5 mg 8-11 tablet by ity o f tablet 00:00: mouth [place] 00 every 12 Medical (twelve) Branch hours as needed for Muscle Spasms. cyclobenzap 2021-0 Yes [id number] 5mg Take 1 [facility] rine 5 mg 8-11 tablet by ity o f tablet 00:00: mouth [place] 00 every 12 Medical (twelve) Branch hours as needed for Muscle Spasms. cyclobenzap 2021-0 Yes [id number] 5mg Take 1 [facility] rine 5 mg 8-11 tablet by ity o f tablet 00:00: mouth [place] 00 every 12 Medical (twelve) Branch hours as needed for Muscle Spasms. cyclobenzap 2021-0 Yes [id number] 5mg Take 1 [facility] rine 5 mg 8-11 tablet by ity o f tablet 00:00: mouth [place] 00 every 12 Medical (twelve) Branch hours as needed for Muscle Spasms. cyclobenzap 2021-0 Yes [id number] 5mg Take 1 [facility] rine 5 mg 8-11 tablet by ity o f tablet 00:00: mouth [place] 00 every 12 Medical (twelve) Branch hours as needed for Muscle Spasms. cyclobenzap 2021-0 Yes [id number] 5mg Take 1 [facility] rine 5 mg 8-11 tablet by ity o f tablet 00:00: mouth [place] 00 every 12 Medical (twelve) Branch hours as needed for Muscle Spasms. cyclobenzap 2021-0 Yes [id number] 5mg Take 1 [facility] rine 5 mg 8-11 tablet by ity o f tablet 00:00: mouth [place] 00 every 12 Medical (twelve) Branch hours as needed for Muscle Spasms. cranberry 0 Yes Take by Unive rs fruit 7-28 mouth. ity of concentrate 09:41: [place] (AZO 20 Medical CRANBERRY Branch ORAL) MULTIVITAMI 2021-0 Yes Take by [facility] vers N ORAL 7-28 mouth. ity of 09:41: [place] 20 Medical Branch OMEGA 3,6,9 2021-0 Yes Take by [facility] vers COMBINATION 7-28 mouth. ity of NO.7 ORAL 09:41: [place] [address] Medical Branch elderberry Yes 400mg Take 400 Un bo fruit 7-28 mg by ity of (ELDERBERRY 09:41: [place] 20 [facility] Lactobacill 0 Yes Take by Uni vers us 7-28 mouth. ity of acidophilus 09:41: [place] (PROBIOTIC 20 Medical ORAL) Branch cranberry Yes Take by Unive rs fruit 7-28 mouth. ity of concentrate 09:41: [place] (AZO 20 Medical CRANBERRY Branch ORAL) MULTIVITAMI 0 Yes Take by [facility] vers N ORAL 7-28 mouth. ity of 09:41: [place] [address] Medical Branch OMEGA 3,6,9 Yes Take by [facility] vers COMBINATION 7-28 mouth. ity of NO.7 ORAL 09:41: [place] [address] Medical Branch elderberry Yes 400mg Take 400 Un bo fruit 7-28 mg by ity of (ELDERBERRY 09:41: [place] ORAL[place] [facility] Branch Lactobacill Yes Take by [facility] vers us 7-28 mouth. ity of acidophilus 09:41: [place] (PROBIOTIC 20 Medical ORAL) Branch cranberry Yes Take by Unive rs fruit 7-28 mouth. ity of concentrate 09:41: [place] (AZO 20 Medical CRANBERRY Branch ORAL) MULTIVITAMI Yes Take by [facility] vers N ORAL 7-28 mouth. ity of 09:41: [place] [address] Medical Branch OMEGA 3,6,9 Yes Take by [facility] vers COMBINATION 7-28 mouth. ity of NO.7 ORAL 09:41: [place] [address] Medical Branch elderberry Yes 400mg Take 400 Un bo fruit 7-28 mg by ity of (ELDERBERRY 09:41: [place] ORAL) [facility] Branch Lactobacill 0 Yes Take by [facility] vers us 7-28 mouth. ity of acidophilus 09:41: [place] (PROBIOTIC 20 Medical ORAL) Branch cranberry 0 Yes Take by Unive rs fruit 7-28 mouth. ity of concentrate 09:41: [place] (AZO 20 Medical CRANBERRY Branch ORAL) MULTIVITAMI Yes Take by [facility] vers N ORAL 7-28 mouth. ity of 09:41: [place] [address] Medical Branch OMEGA 3,6,9 Yes Take by [facility] vers COMBINATION 7-28 mouth. ity of NO.7 ORAL 09:41: [place] [address] Medical Branch elderberry Yes 400mg Take 400 Un bo fruit 7-28 mg by ity of (ELDERBERRY 09:41: [place] ORAL) [facility] Lactobacill 0 Yes Take by [facility] vers us 7-28 mouth. ity of acidophilus 09:41: [place] (PROBIOTIC 20 Medical ORAL) Branch cranberry Yes Take by Un[facility] rs fruit 7-28 mouth. ity of concentrate 09:41: [place] (AZO 20 Medical CRANBERRY Branch ORAL) MULTIVITAMI Yes Take by [facility] vers N ORAL 7-28 mouth. ity of 09:41: [address] Branch OMEGA 3,6,9 Yes Take by [facility] vers COMBINATION 7-28 mouth. ity of NO.7 ORAL 09:41: [place] [address] Medical Branch elderberry Yes 400mg Take 400 Un bo fruit 7-28 mg by ity of (ELDERBERRY 09:41: [place]. [place] ORAL) [facility] Lactobacill Yes Take by [facility] vers us 7-28 mouth. ity of acidophilus 09:41: [place] (PROBIOTIC 20 Medical ORAL) Branch cranberry Yes Take by Un[facility] rs fruit 7-28 mouth. ity of concentrate 09:41: [place] (AZO 20 Medical CRANBERRY Branch ORAL) MULTIVITAMI Yes Take by [facility] vers N ORAL 7-28 mouth. ity of 09:41: [address] Branch OMEGA 3,6,9 Yes Take by [facility] vers COMBINATION 7-28 mouth. ity of NO.7 ORAL 09:41: [place] [address] Medical Branch elderberry Yes 400mg Take 400 Un bo fruit 7-28 mg by ity of (ELDERBERRY 09:41: [place]. [place] ORAL) [facility] Lactobacill 0 Yes Take by [facility] vers us 7-28 mouth. ity of acidophilus 09:41: [place] (PROBIOTIC 20 Medical ORAL) Branch cranberry Yes Take by Un[facility] rs fruit 7-28 mouth. ity of concentrate 09:41: [place] (AZO 20 Medical CRANBERRY Branch ORAL) MULTIVITAMI Yes Take by [facility] vers N ORAL 7-28 mouth. ity of 09:41: [place] [address] Medical Branch OMEGA 3,6,9 0 Yes Take by [facility] vers COMBINATION 7-28 mouth. ity of NO.7 ORAL 09:41: [place] [address] Medical Branch elderberry Yes 400mg Take 400 Un bo fruit 7-28 mg by ity of (ELDERBERRY 09:41: [place]. [place] ORAL) [facility] Branch Lactobacill 0 Yes Take by [facility] vers us 7-28 mouth. ity of acidophilus 09:41: [place] (PROBIOTIC 20 Medical ORAL) Branch cranberry Yes Take by Unive rs fruit 7-28 mouth. ity of concentrate 09:41: [place] (AZO 20 Medical CRANBERRY Branch ORAL) MULTIVITAMI Yes Take by [facility] vers N ORAL 7-28 mouth. ity of 09:41: [address] OMEGA 3,6,9 Yes Take by [facility] vers COMBINATION 7-28 mouth. ity of NO.7 ORAL 09:41: [address] Branch elderberry Yes 400mg Take 400 Un bo fruit 7-28 mg by ity of (ELDERBERRY 09:41: [place]. [place] ORAL) [facility] Branch Lactobacill 0 Yes Take by [facility] vers us 7-28 mouth. ity of acidophilus 09:41: [place] (PROBIOTIC 20 Medical ORAL) Branch cranberry Yes Take by Unive rs fruit 7-28 mouth. ity of concentrate 09:41: [place] (AZO 20 Medical CRANBERRY Branch ORAL) MULTIVITAMI Yes Take by [facility] vers N ORAL 7-28 mouth. ity of 09:41: [address] Branch OMEGA 3,6,9 Yes Take by [facility] vers COMBINATION 7-28 mouth. ity of NO.7 ORAL 09:41: [place] [address] Medical Branch elderberry 0 Yes 400mg Take 400 Un bo fruit 7-28 mg by ity of (ELDERBERRY 09:41: [place]. [place] ORAL) [facility] Branch Lactobacill 0 Yes Take by [facility] vers us 7-28 mouth. ity of acidophilus 09:41: [place] (PROBIOTIC 20 Medical ORAL) Branch cranberry 2022-0 Yes Take by Unive rs fruit 7-28 mouth. ity of concentrate 09:41: [place] (AZO 20 Medical CRANBERRY Branch ORAL) MULTIVITAMI Yes Take by [facility] vers N ORAL 7-28 mouth. ity of 09:41: [place] 20 Medical Branch OMEGA 3,6,9 0 Yes Take by [facility] vers COMBINATION 7-28 mouth. ity of NO.7 ORAL 09:41: [place] 20 Medical Branch elderberry Yes 400mg Take 400 Un bo fruit 7-28 mg by ity of (ELDERBERRY 09:41: [place]. [place] ORAL) 20 [facility] Branch Lactobacill 0 Yes Take by [facility] vers us 7-28 mouth. ity of acidophilus 09:41: [place] (PROBIOTIC 20 Medical ORAL) Branch AMLODIPINE Yes [id number] TAKE 2 U nivers 5 mg tablet 7-11 TABLETS BY it y of 00:00: MOUTH [place] 00 EVERY DAY Medical Branch AMLODIPINE 2021-0 Yes [id number] TAKE 2 U nivers 5 mg tablet 7-11 TABLETS BY it y of 00:00: MOUTH [place] 00 EVERY DAY Medical Branch AMLODIPINE 2021-0 Yes [id number] TAKE 2 U nivers 5 mg tablet 7-11 TABLETS BY it y of 00:00: MOUTH [place] 00 EVERY DAY Medical Branch AMLODIPINE 2021-0 Yes [id number] TAKE 2 U nivers 5 mg tablet 7-11 TABLETS BY it y of 00:00: MOUTH [place] 00 EVERY DAY Medical Branch AMLODIPINE 2021-0 Yes [id number] TAKE 2 U nivers 5 mg tablet 7-11 TABLETS BY it y of 00:00: MOUTH [place] 00 EVERY DAY Medical Branch AMLODIPINE 2021-0 Yes [id number] TAKE 2 U nivers 5 mg tablet 7-11 TABLETS BY it y of 00:00: MOUTH [place] 00 EVERY DAY Medical Branch AMLODIPINE 2-0 Yes [id number] TAKE 2 U nivers 5 mg tablet 7-11 TABLETS BY it y of 00:00: MOUTH [place] 00 EVERY DAY Medical Branch AMLODIPINE 2-0 Yes [id number] TAKE 2 [facility] nivers 5 mg tablet 7-11 TABLETS BY it y of 00:00: MOUTH [place] 00 EVERY DAY Medical Branch AMLODIPINE 2021-0 Yes [id number] TAKE 2 [facility] nivers 5 mg tablet 7-11 TABLETS BY it y of 00:00: MOUTH [place] 00 EVERY DAY Medical Branch AMLODIPINE 2-0 Yes [id number] TAKE 2 [facility] nivers 5 mg tablet 7-11 TABLETS BY it y of 00:00: MOUTH [place] 00 EVERY DAY Medical Branch AMLODIPINE 2022-0 Yes [id number] TAKE 2 U nivers 5 mg tablet 7-11 TABLETS BY it y of 00:00: MOUTH [place] 00 EVERY DAY Medical Branch AMLODIPINE 2022-0 Yes [id number] TAKE 2 U nivers 5 mg tablet 7-11 TABLETS BY it y of 00:00: MOUTH [place] 00 EVERY DAY Medical Branch AMLODIPINE 2022-0 Yes [id number] TAKE 2 U nivers 5 mg tablet 7-11 TABLETS BY it y of 00:00: MOUTH [place] 00 EVERY DAY Medical Branch AMLODIPINE 2022-0 Yes [id number] TAKE 2 [facility] nivers 5 mg tablet 7-11 TABLETS BY it y of 00:00: MOUTH [place] 00 EVERY DAY Medical Branch AMLODIPINE 2022-0 Yes [id number] TAKE 2 [facility] nivers 5 mg tablet 7-11 TABLETS BY it y of 00:00: MOUTH [place] 00 EVERY DAY Medical Branch AMLODIPINE 2022-0 Yes [id number] TAKE 2 [facility] nivers 5 mg tablet 7-11 TABLETS BY it y of 00:00: MOUTH [place] 00 EVERY DAY Medical Branch AMLODIPINE 2022-0 Yes [id number] TAKE 2 [facility] nivers 5 mg tablet 7-11 TABLETS BY it y of 00:00: MOUTH [place] 00 EVERY DAY Medical Branch AMLODIPINE 2022-0 Yes [id number] TAKE 2 [facility] nivers 5 mg tablet 7-11 TABLETS BY it y of 00:00: MOUTH [place] 00 EVERY DAY Medical Branch AMLODIPINE 2022-0 Yes [id number] TAKE 2 [facility] nivers 5 mg tablet 7-11 TABLETS BY it y of 00:00: MOUTH [place] 00 EVERY DAY Medical Branch AMLODIPINE 2022-0 2022- No [id number] TAKE 2 [facility] 5 mg tablet 7-11 12-07 TABLETS BY i ty of 00:00: 00:00 MOUTH [place] 00 :00 EVERY DAY Medical Branch omeprazole 2022-0 Yes [id number] 20mg Take 1 [facility] 20 mg 1-27 9103 capsule by ity of capsule 00:00: mouth [place] 00 daily. Medical Branch omeprazole 2022-0 Yes [id number] 20mg Take 1 [facility] 20 mg 1-27 9103 capsule by ity of capsule 00:00: mouth [place] 00 daily. Medical Branch omeprazole 2022-0 Yes [id number] 20mg Take 1 [facility] 20 mg 1-27 9103 capsule by ity of capsule 00:00: mouth [place] 00 daily. Medical Branch omeprazole 2021-0 Yes [id number] 20mg Take 1 [facility] 20 mg 1-27 9103 capsule by ity of capsule 00:00: mouth [place] 00 daily. Medical Branch omeprazole 2021-0 Yes [id number] 20mg Take 1 [facility] 20 mg 1-27 9103 capsule by ity of capsule 00:00: mouth [place] 00 daily. Medical Branch omeprazole 2021-0 Yes [id number] 20mg Take 1 [facility] 20 mg 1-27 9103 capsule by ity of capsule 00:00: mouth [place] 00 daily. Medical Branch omeprazole 2021-0 Yes [id number] 20mg Take 1 [facility] 20 mg 1-27 9103 capsule by ity of capsule 00:00: mouth [place] 00 daily. Medical Branch omeprazole 2021-0 Yes [id number] 20mg Take 1 [facility] 20 mg 1-27 9103 capsule by ity of capsule 00:00: mouth [place] 00 daily. Medical Branch omeprazole 2021-0 Yes [id number] 20mg Take 1 [facility] 20 mg 1-27 9103 capsule by ity of capsule 00:00: mouth [place] 00 daily. Medical Branch omeprazole 2021-0 Yes [id number] 20mg Take 1 [facility] 20 mg 1-27 9103 capsule by ity of capsule 00:00: mouth [place] 00 daily. Medical Branch omeprazole 2021-0 Yes [id number] 20mg Take 1 [facility] 20 mg 1-27 9103 capsule by ity of capsule 00:00: mouth [place] 00 daily. Medical Branch omeprazole 2021-0 Yes [id number] 20mg Take 1 [facility] 20 mg 1-27 9103 capsule by ity of capsule 00:00: mouth [place] 00 daily. Medical Branch omeprazole 2021-0 Yes [id number] 20mg Take 1 [facility] 20 mg 1-27 9103 capsule by ity of capsule 00:00: mouth [place] 00 daily. Medical Branch omeprazole 2021-0 Yes [id number] 20mg Take 1 [facility] 20 mg 1-27 9103 capsule by ity of capsule 00:00: mouth [place] 00 daily. Medical Branch omeprazole 2021-0 Yes [id number] 20mg Take 1 [facility] 20 mg 1-27 9103 capsule by ity of capsule 00:00: mouth [place] 00 daily. Medical Branch omeprazole 2021-0 Yes [id number] 20mg Take 1 [facility] 20 mg 1 9103 capsule by ity of capsule 00:00: mouth [place] 00 daily. Medical Branch omeprazole 2021-0 Yes [id number] 20mg Take 1 [facility] 20 mg 127 9103 capsule by ity of capsule 00:00: mouth [place] 00 daily. Medical Branch omeprazole 2021-0 Yes [id number] 20mg Take 1 [facility] 20 mg 1 9103 capsule by ity of capsule 00:00: mouth [place] 00 daily. Medical Branch omeprazole 2021-0 Yes [id number] 20mg Take 1 [facility] 20 mg 1 9103 capsule by ity of capsule 00:00: mouth [place] 00 daily. Medical Branch omeprazole 2021-0 Yes [id number] 20mg Take 1 [facility] 20 mg 1 9103 capsule by ity of capsule 00:00: mouth [place] 00 daily. Medical Branch omeprazole 2021-0 Yes [id number] 20mg Take 1 [facility] 20 mg 09-18 9103 capsule by ity of capsule 00:00: mouth [place] 00 daily. Medical Branch omeprazole 0 Yes [id number] 20mg Take 1 [facility] 20 mg 1 9103 capsule by ity of capsule 00:00: mouth [place] 00 daily. Medical Branch omeprazole 0 2023- No [id number] 20mg Take 1 [facility] 20 mg 1 01-04 9103 capsule by ity of capsule 00:00: 00:00 mouth [place] 00 :00 daily. Medical Branch amLODIPine 2020-08 Yes TAKE 1 [facility]o di (NORVASC) 1-[address] [facility] mg 00:00: [facility] EVERY DAY l amLODIPine 2020-08 Yes TAKE 1 Metho di (NORVASC) 1-[address] 10 mg 00:00: MOUTH [facility] tablet 00 EVERY DAY l vitamin C Yes 1000mg Take 1,000 [facility] with beni 9-03 mg by ity of hips 1,000 09:19: mouth. [place] mg tablet 16 Medical Branch calcium-vit Yes 2{tbl} Take 2 Un bo islas D 500 9-03 tablets by ity of mg(1,250mg) 09:19: [place]. [place] -200 unit 16 Medical per tablet Branch vitamin 2020-0 Yes 1000ug Take 1,000 Un bo B-12 1,000 9-03 mcg by ity of mcg tablet 09:19: mouth. [place] 16 Medical Branch Docosahexan 2020-0 Yes Take by Uni vers oic 04-25 mouth. ity of Acid-[place] 09:19: [place] pent 16 Medical 120-180 mg Branch Cap vitamin C 2020-0 Yes 1000mg Take 1,000 [facility] with beni 9-03 mg by ity of hips 1,000 09:19: mouth. [place] mg tablet 16 Medical Branch calcium-vit 2020-0 Yes 2{tbl} Take 2 Un bo islas D 500 9-03 tablets by ity of mg(1,250mg) 09:19: mouth. [place] -200 unit 16 Medical per tablet Branch vitamin 2020-0 Yes 1000ug Take 1,000 Un bo B-12 1,000 9-03 mcg by ity of mcg tablet 09:19: mouth. [place] [address] Medical Branch Docosahexan 2020-0 Yes Take by [facility] vers oic 04-25 mouth. ity of Acid-[place] 09:19: [place] pent 16 Medical 120-180 mg Branch Cap vitamin C 2020-0 Yes 1000mg Take 1,000 [facility] with beni 9-03 mg by ity of hips 1,000 09:19: mouth. [place] mg tablet 16 Medical Branch calcium-vit 2020-0 Yes 2{tbl} Take 2 Un bo islas D 500 9-03 tablets by ity of mg(1,250mg) 09:19: mouth. [place] -200 unit 16 Medical per tablet Branch vitamin 2020-0 Yes 1000ug Take 1,000 Un bo B-12 1,000 9-03 mcg by ity of mcg tablet 09:19: mouth. [place] 16 Medical Branch Docosahexan 2020-0 Yes Take by Uni vers oic 04-25 mouth. ity of Acid-[place] 09:19: [place] pent 16 Medical 120-180 mg Branch Cap vitamin C 2020-0 Yes 1000mg Take 1,000 [facility] with beni 9-03 mg by ity of hips 1,000 09:19: mouth. [place] mg tablet 16 Medical Branch calcium-vit 2020-0 Yes 2{tbl} Take 2 Un bo islas D 500 9-03 tablets by ity of mg(1,250mg) 09:19: mouth. [place] -200 unit 16 Medical per tablet Branch vitamin 1-0 Yes 1000ug Take 1,000 Un bo B-12 1,000 9-03 mcg by ity of mcg tablet 09:19: mouth. [place] [address] Medical Branch Docosahexan 2020-0 Yes Take by [facility] vers oic 04-25 mouth. ity of Acid-[place] 09:19: [place] pent 16 Medical 120-180 mg Branch Cap vitamin C 2020-0 Yes 1000mg Take 1,000 [facility] with beni 9-03 mg by ity of hips 1,000 09:19: mouth. [place] mg tablet 16 Medical Branch calcium-vit 2020-0 Yes 2{tbl} Take 2 Un bo islas D 500 9-03 tablets by ity of mg(1,250mg) 09:19: [place]. [place] -200 unit 16 [facility] per tablet Branch vitamin 2020-0 Yes 1000ug Take 1,000 Un bo B-12 1,000 9-03 mcg by ity of mcg tablet 09:19: mouth. [place] [address] Medical Branch Docosahexan 2020-0 Yes Take by [facility] vers oic 04-25 mouth. ity of Acid-[place] 09:19: [place] pent 16 Medical 120-180 mg Branch Cap vitamin C 2020-0 Yes 1000mg Take 1,000 [facility] with beni 9-03 mg by ity of hips 1,000 09:19: mouth. [place] mg tablet 16 Medical Branch calcium-vit 2020-0 Yes 2{tbl} Take 2 Un bo islas D 500 9-03 tablets by ity of mg(1,250mg) 09:19: [place]. [place] -200 unit 16 [facility] per tablet Branch vitamin 1-0 Yes 1000ug Take 1,000 Un bo B-12 1,000 9-03 mcg by ity of mcg tablet 09:19: mouth. [place] [address] Medical Branch Docosahexan 2020-0 Yes Take by [facility] vers oic 9 mouth. ity of Acid-[place] 09:19: [place] pent 16 Medical 120-180 mg Branch Cap vitamin C 2020-0 Yes 1000mg Take 1,000 [facility] with beni 9-03 mg by ity of hips 1,000 09:19: mouth. [place] mg tablet 16 Medical Branch calcium-vit 1-0 Yes 2{tbl} Take 2 Un bo islas D 500 9-03 tablets by ity of mg(1,250mg[place] per tablet Branch vitamin 1-0 Yes 1000ug Take 1,000 Un bo B-12 1,000 9-03 mcg by ity of mcg tablet 09:19: mouth. [place] 16 [facility] Branch Docosahexan 2020-0 Yes Take by Uni vers oic 04-25 mouth. ity of Acid-[place] 09:19: [place] pent 16 Medical 120-180 mg Branch Cap vitamin C 1-0 Yes 1000mg Take 1,000 Univers with beni 9-03 mg by ity of hips 1,000 09:19: mouth. [place] mg tablet 16 Medical Branch calcium-vit 2020-0 Yes 2{tbl} Take 2 Un bo islas D 500 9-03 tablets by ity of mg(1,250mg) 09:19: [place] [facility] 16 [facility] per tablet Branch vitamin 1-0 Yes 1000ug Take 1,000 Un bo B-12 1,000 9-03 mcg by ity of mcg tablet 09:19: mouth. [place] 16 Medical Branch Docosahexan 2020-0 Yes Take by Uni vers oic 04-25 mouth. ity of Acid-[place] 09:19: [place] pent 16 Medical 120-180 mg Branch Cap vitamin C 2020-0 Yes 1000mg Take 1,000 Univers with beni 9-03 mg by ity of hips 1,000 09:19: mouth. [place] mg tablet 16 Medical Branch calcium-vit 1-0 Yes 2{tbl} Take 2 Un bo islas D 500 9-03 tablets by ity of mg(1,250mg) 09:19: [place] 16 [facility] per tablet Branch vitamin 1-0 Yes 1000ug Take 1,000 Un bo B-12 1,000 9-03 mcg by ity of mcg tablet 09:19: mouth. [place] 16 Medical Branch Docosahexan 2020-0 Yes Take by Uni vers oic 04-25 mouth. ity of Acid-[place] 09:19: [place] pent 16 Medical 120-180 mg Branch Cap vitamin C 2021-0 Yes 1000mg Take 1,000 Univers with beni 9-03 mg by ity of hips 1,000 09:19: mouth. [place] mg tablet 16 Medical Branch calcium-vit 2020-0 Yes 2{tbl} Take 2 Un bo islas D 500 9-03 tablets by ity of mg(1,250mg) 09:19: [place] [facility] 16 [facility] per tablet Branch vitamin 2020-0 Yes 1000ug Take 1,000 Un bo B-12 1,000 9-03 mcg by ity of mcg tablet 09:19: mouth. [place] [id number] Medical Branch Docosahexan 2020-0 Yes Take by Uni vers oic 9- mouth. ity of Acid-[place] 09:19: [facility] 16 Medical 120-180 mg Branch Cap aspirin 81 2020-0 Yes 81mg Take 81 mg U nivers mg EC 04-25 by mouth ity of tablet 09:18: daily. [address] Cholecalcif 0 Yes Take by Uni vers bert, - mouth. ity of Vitamin D3, 09:18: [place] 50 mcg 11 Medical (2,000 Branch unit) capsule aspirin 81 2020-0 Yes 81mg Take 81 mg U nivers mg EC 9 by mouth ity of tablet 09:18: daily. [address] Branch Cholecalcif 0 Yes Take by Uni vers bert, - mouth. ity of Vitamin D3, 09:18: [place] 50 mcg 11 Medical (2,000 Branch unit) capsule aspirin 81 2020-0 Yes 81mg Take 81 mg U nivers mg EC 9- by mouth ity of tablet 09:18: daily. [address] Branch Cholecalcif 2020-0 Yes Take by Uni vers bert, 9- mouth. ity of Vitamin D3, 09:18: [place] 50 mcg 11 Medical (2,000 Branch unit) capsule aspirin 81 2020-0 Yes 81mg Take 81 mg U nivers mg EC 903 by mouth ity of tablet 09:18: daily. [address] Branch Cholecalcif 2020-0 Yes Take by Uni vers bert, 9-03 mouth. ity of Vitamin D3, 09:18: [place] 50 mcg 11 Medical (2,000 Branch unit) capsule aspirin 81 2020-0 Yes 81mg Take 81 mg U nivers mg EC 9-03 by mouth ity of tablet 09:18: daily. [place] [address] Medical Branch Cholecalcif 202-0 Yes Take by Uni vers bert, 9- mouth. ity of Vitamin D3, 09:18: [place] 50 [facility] 11 Medical (2,000 Branch unit) capsule aspirin 81 202-0 Yes 81mg Take 81 mg U nivers mg EC 9-03 by mouth ity of tablet 09:18: daily. [place] [address] Medical Branch Cholecalcif 2020-0 Yes Take by Uni vers bert, 9-03 mouth. ity of Vitamin D3, 09:18: [place] 50 [facility] 11 Medical (2,000 Branch unit) capsule aspirin 81 202-0 Yes 81mg Take 81 mg U nivers mg EC 9-03 by mouth ity of tablet 09:18: daily. [place] [address] Medical Branch Cholecalcif 202-0 Yes Take by Uni vers bert, 9- mouth. ity of Vitamin D3, 09:18: [place] 50 [facility] 11 Medical (2,000 Branch unit) capsule aspirin 81 202-0 Yes 81mg Take 81 mg U nivers mg EC 9-03 by mouth ity of tablet 09:18: daily. [place] [address] Medical Branch Cholecalcif 2020-0 Yes Take by Uni vers bert, 9-03 mouth. ity of Vitamin D3, 09:18: [place] 50 [facility] 11 Medical (2,000 Branch unit) capsule aspirin 81 2021-0 Yes 81mg Take 81 mg U nivers mg EC 9-03 by mouth ity of tablet 09:18: daily. [address] Branch Cholecalcif 2020-0 Yes Take by Uni vers bert, 9-03 mouth. ity of Vitamin D3, 09:18: [place] 50 [facility] 11 Medical (2,000 Branch unit) capsule aspirin 81 2021-0 Yes 81mg Take 81 mg U nivers mg EC 9-03 by mouth ity of tablet 09:18: daily. [place] [address] Medical Branch Cholecalcif 2020-0 Yes Take by Uni vers bert, 9-03 mouth. ity of Vitamin D3, 09:18: [place] 50 [facility] 11 Medical (2,000 Branch unit) capsule amLODIPine 1-0 2020- No TAKE 1 Meth lynda (NORVASC) 8-24 11-[address] 10 mg 00:00: 00:00 [facility] tablet 00 :00 EVERY DAY l L. 2020-0 Yes QD Take by Methodi ACIDOPHILUS 7-[address] /BIFIDO 15:46: daily. Hospita LONGUM 07 l (PROBIOTIC PEARLS ORAL) multivitami 0 Yes 1{tbl} QD Take 1 Me thodi n 7-[address] (THERAGRAN) 15:46: mouth Hospi ta tablet 07 daily. l cyanocobala 0 Yes 1000ug QD Take 1,000 Methodi min 1000 7-[address] MCG tablet 15:46: mouth Hospit a 07 daily. l calcium 2020-0 Yes 2{tbl} QD Take 2 Method i carbonate-v 7-[address] itamin D3 15:46: mouth Hospita 500 mg-200 07 daily. l unit per tablet omeprazole 0 Yes 20mg Q.5D Take 20 mg M ethodi (PriLOSEC) 7-[address] 20 MG 15:46: (two) Hospita capsule 07 times a l day. potassium 0 Yes 550mg QD Take 550 Met hodi gluconate 7-[address] 550 mg (90 15:46: mouth Hospit a mg) tablet 07 daily. l aspirin 0 Yes 81mg QD Take 81 mg Meth lynda (ECOTRIN) 7- by mouth st 81 MG 15:46: daily. Hospita enteric 07 l coated tablet cranberry Yes Take by Metho di fruit 7-[address] concentrate 15:46: Hospit a (AZO 07 l CRANBERRY ORAL) OMEGA 3,6,9 0 Yes 2000mg QD Take 2,000 Methodi COMBINATION 7-[address] NO.7 ORAL 15:46: mouth Hospita 07 daily. l ascorbic 0 Yes Take by Method i acid/collag 7-[address] en hydr 15:46: Hospita (COLLAGEN 07 l PLUS VITAMIN C ORAL) ascorbic 2020-0 Yes 1000mg QD Take 1,000 M ethodi acid, 7-[address] vitamin C, 15:46: mouth Hospit a (vitamin C) 07 daily. l 1000 MG tablet ubidecareno 0 Yes Take by Met hodi ne/vitamin 7-[address] E mixed 15:46: Hospita (COQ10 SG 07 l 100 ORAL) NON 2020-0 Yes Tumeric Methodi FORMULARY 7-[address] 15:46: Hospita 07 l acetaminoph 2020-0 Yes 500mg Q6H Take 500 M ethodi en 7-[address] (TYLENOL) 15:46: mouth Hospita 500 MG 07 every 6 l tablet (six) hours as needed for mild pain. L. 2020-0 Yes QD Take by Methodi ACIDOPHILUS 7-[address] /BIFIDO 15:46: daily. Hospita LONGUM 07 l (PROBIOTIC PEARLS ORAL) multivitami 2020-0 Yes 1{tbl} QD Take 1 Me thodi n 7-[address] (THERAGRAN) 15:46: mouth Hospi ta tablet 07 daily. l cyanocobala 0 Yes 1000ug QD Take 1,000 Methodi min 1000 7-[address] MCG tablet 15:46: mouth Hospit a 07 daily. l calcium 2020-0 Yes 2{tbl} QD Take 2 Method i carbonate-v 7-[address] itamin D3 15:46: mouth Hospita 500 mg-200 07 daily. l unit per tablet omeprazole 2020-0 Yes 20mg Q.5D Take 20 mg M ethodi (PriLOSEC) 7-[address] 20 MG 15:46: (two) Hospita capsule 07 times a l day. potassium 0 Yes 550mg QD Take 550 Met hodi gluconate 7-[address] 550 mg (90 15:46: mouth Hospit a mg) tablet 07 daily. l aspirin 2020-0 Yes 81mg QD Take 81 mg Meth lynda (ECOTRIN) 7-[address] 81 MG 15:46: daily. Hospita enteric 07 l coated tablet cranberry 0 Yes Take by Metho di fruit 7-[address] concentrate 15:46: Hospit a (AZO 07 l CRANBERRY ORAL) OMEGA 3,6,9 2020-0 Yes 2000mg QD Take 2,000 Methodi COMBINATION 7-[address] NO.7 ORAL 15:46: mouth Hospita 07 daily. l ascorbic 2020-0 Yes Take by Method i acid/collag 7-[address] en hydr 15:46: Hospita (COLLAGEN 07 l PLUS VITAMIN C ORAL) ascorbic Yes 1000mg QD Take 1,000 M ethodi acid, 7-[address] vitamin C, 15:46: mouth Hospit a (vitamin C) 07 daily. l 1000 MG tablet ubidecareno Yes Take by Met hodi ne/vitamin 7-[address] E mixed 15:46: Hospita (COQ10 SG 07 l 100 ORAL) NON Yes Tumeric Methodi FORMULARY 7-[address] 15:46: Hospita 07 l acetaminoph Yes 500mg Q6H Take 500 M ethodi en 7-[address] (TYLENOL) 15:46: mouth Hospita 500 MG 07 every 6 l tablet (six) hours as needed for mild pain. atorvastati Yes 10mg QD Take 1 Meth lynda n (LIPITOR) 9-08 tablet (10 st 10 mg 00:00: mg total) Hospita tablet 00 by mouth l nightly. atorvastati Yes 10mg QD Take 1 Meth lynda n (LIPITOR) 9-08 tablet (10 st 10 mg 00:00: mg total) Hospita tablet 00 by mouth l nightly. Immunizations Ordered Immunization Filled Immunization Date Status Commen ts Source Name Name Influenza Virus 2022-07-08 Completed [facility]it y of Vaccine,quad 00:00:00 [place] [facility],preserve Free 65+ Bran ch Influenza Virus 2022-07-08 Completed Universit y of Vaccine,quad 00:00:00 [place] [facility] Im,preserve Free 65+ Bran ch SARS-COV-2 COVID-19 2022-07-08 Completed Unive rsity of VACCINE 12 YRS+, 00:00:00 [place] Me dical BIVALENT 0.5ML, IM, Branc h (MODERNA BOOSTER) Influenza Virus 2022-07-08 Completed Universit y of Vaccine,quad 00:00:00 [place] [facility] Im,preserve Free 65+ Bran ch SARS-COV-2 COVID-19 2022-07-08 Completed Unive rsity of VACCINE 12 YRS+, 00:00:00 [place] [facility]ical BIVALENT 0.5ML, IM, Branc h (MODERNA BOOSTER) Influenza Virus 2022-07-08 Completed Universit y of Vaccine,quad 00:00:00 [place] [facility] Im,preserve Free 65+ Bran ch SARS-COV-2 COVID-19 2022-07-08 Completed Unive rsity of VACCINE 12 YRS+, 00:00:00 [place] [facility]ical BIVALENT 0.5ML, IM, Branc h (MODERNA BOOSTER) Influenza Virus 2022-07-08 Completed Universit y of Vaccine,quad 00:00:00 [place] [facility] Im,preserve Free 65+ Bran ch SARS-COV-2 COVID-19 2022-07-08 Completed Unive rsity of VACCINE 12 YRS+, 00:00:00 [place] [facility]ical BIVALENT 0.5ML, IM, Branc h (MODERNA BOOSTER) Influenza Virus 2022-07-08 Completed Universit y of Vaccine,quad 00:00:00 [place] [facility] Im,preserve Free 65+ Bran ch SARS-COV-2 COVID-19 2022-07-08 Completed Unive rsity of VACCINE 12 YRS+, 00:00:00 [place] Me dical BIVALENT 0.5ML, IM, Branc h (MODERNA BOOSTER) Influenza Virus 2022-07-08 Completed Universit y of Vaccine,quad 00:00:00 [place] [facility] Im,preserve Free 65+ Bran ch SARS-COV-2 COVID-19 2022-07-08 Completed Unive rsity of VACCINE 12 YRS+, 00:00:00 [place] [facility] dical BIVALENT 0.5ML, IM, Branc h (MODERNA BOOSTER) Influenza Virus 2022-07-08 Completed Universit y of Vaccine,quad 00:00:00 [place] [facility] Im,preserve Free 65+ Bran ch SARS-COV-2 COVID-19 2022-07-08 Completed Unive rsity of VACCINE 12 YRS+, 00:00:00 [place] Me dical BIVALENT 0.5ML, IM, Branc h (MODERNA BOOSTER) Influenza Virus 2022-07-08 Completed Universit y of Vaccine,quad 00:00:00 [place] [facility] Im,preserve Free 65+ Bran ch SARS-COV-2 COVID-19 2022-07-08 Completed Unive rsity of VACCINE 12 YRS+, 00:00:00 [place] Me dical BIVALENT 0.5ML, IM, Branc h (MODERNA BOOSTER) Influenza Virus 2022-07-08 Completed Universit y of Vaccine,quad 00:00:00 [place] [facility] Im,preserve Free 65+ Bran ch SARS-COV-2 COVID-19 2022-07-08 Completed Unive rsity of VACCINE 12 YRS+, 00:00:00 [place] Me dical BIVALENT 0.5ML, IM, Branc h (MODERNA BOOSTER) Influenza Virus 2022-07-08 Completed Universit y of Vaccine,quad 00:00:00 [place] [facility] Im,preserve Free 65+ Bran ch SARS-COV-2 COVID-19 2022-07-08 Completed Unive rsity of VACCINE 12 YRS+, 00:00:00 [place] Me dical BIVALENT 0.5ML, IM, Branc h (MODERNA BOOSTER) Influenza Virus 2022-07-08 Completed Universit y of Vaccine,quad 00:00:00 [place] [facility] Im,preserve Free 65+ Bran ch SARS-COV-2 COVID-19 2022-07-08 Completed Unive rsity of VACCINE 12 YRS+, 00:00:00 [place] Me dical BIVALENT 0.5ML, IM, Branc h (MODERNA BOOSTER) Influenza Virus 2022-07-08 Completed Universit y of Vaccine,quad 00:00:00 [place] [facility] Im,preserve Free 65+ Bran ch SARS-COV-2 COVID-19 2022-07-08 Completed Unive rsity of VACCINE 12 YRS+, 00:00:00 [place] Me dical BIVALENT 0.5ML, IM, Branc h (MODERNA BOOSTER) Influenza Virus 2022-07-08 Completed Universit y of Vaccine,quad 00:00:00 [place] [facility] Im,preserve Free 65+ Bran ch SARS-COV-2 COVID-19 2022-07-08 Completed Unive rsity of VACCINE 12 YRS+, 00:00:00 [place] Me dical BIVALENT 0.5ML, IM, Branc h (MODERNA BOOSTER) Influenza Virus 2022-07-08 Completed Universit y of Vaccine,quad 00:00:00 [place] [facility] Im,preserve Free 65+ Bran ch SARS-COV-2 COVID-19 2022-07-08 Completed Unive rsity of VACCINE 12 YRS+, 00:00:00 [place] Me dical BIVALENT 0.5ML, IM, Branc h (MODERNA BOOSTER) Influenza Virus 2022-07-08 Completed Universit y of Vaccine,quad 00:00:00 [place] [facility] Im,preserve Free 65+ Bran ch SARS-COV-2 COVID-19 2022-07-08 Completed Unive rsity of VACCINE 12 YRS+, 00:00:00 [place] Me dical BIVALENT 0.5ML, IM, Branc h (MODERNA BOOSTER) Influenza Virus 2022-07-08 Completed Universit y of Vaccine,quad 00:00:00 [place] [facility] Im,preserve Free 65+ Bran ch SARS-COV-2 COVID-19 2022-07-08 Completed Unive rsity of VACCINE 12 YRS+, 00:00:00 [place] Me dical BIVALENT 0.5ML, IM, Branc h (MODERNA BOOSTER) Influenza Virus 2022-07-08 Completed Universit y of Vaccine,quad 00:00:00 [place] [facility] Im,preserve Free 65+ Bran ch SARS-COV-2 COVID-19 2022-07-08 Completed Unive rsity of VACCINE 12 YRS+, 00:00:00 [place] Me dical BIVALENT 0.5ML, IM, Branc h (MODERNA BOOSTER) Influenza Virus 2022-07-08 Completed Universit y of Vaccine,quad 00:00:00 [place] [facility] Im,preserve Free 65+ Bran ch SARS-COV-2 COVID-19 2022-07-08 Completed Unive rsity of VACCINE 12 YRS+, 00:00:00 [place] Me dical BIVALENT 0.5ML, IM, Branc h (MODERNA BOOSTER) Influenza Virus 2022-07-08 Completed Universit y of Vaccine,quad 00:00:00 [place] [facility] Im,preserve Free 65+ Bran ch SARS-COV-2 COVID-19 2022-07-08 Completed Unive rsity of VACCINE 12 YRS+, 00:00:00 [place] Me dical BIVALENT 0.5ML, IM, Branc h (MODERNA BOOSTER) Influenza Virus 2022-07-08 Completed Universit y of Vaccine,quad 00:00:00 [place] [facility] Im,preserve Free 65+ Bran ch SARS-COV-2 COVID-19 2022-07-08 Completed Unive rsity of VACCINE 12 YRS+, 00:00:00 [place] Me dical BIVALENT 0.5ML, IM, Branc h (MODERNA BOOSTER) Influenza Virus 2022-07-08 Completed Universit y of Vaccine,quad 00:00:00 [place] [facility] Im,preserve Free 65+ Bran ch SARS-COV-2 COVID-19 2022-07-08 Completed Unive rsity of VACCINE 12 YRS+, 00:00:00 [place] Me dical BIVALENT 0.5ML, IM, Branc h (MODERNA BOOSTER) Influenza Virus 2022-07-08 Completed Universit y of Vaccine,quad 00:00:00 [place] [facility] Im,preserve Free 65+ Bran ch SARS-COV-2 COVID-19 2022-07-08 Completed Unive rsity of VACCINE 12 YRS+, 00:00:00 [place] [facility]ical BIVALENT 0.5ML, IM, Branc h (MODERNA BOOSTER) Influenza Virus 2022-07-08 Completed Universit y of Vaccine,quad 00:00:00 [place] [facility] Im,preserve Free 65+ Bran ch SARS-COV-2 COVID-19 2022-07-08 Completed Unive rsity of VACCINE 12 YRS+, 00:00:00 [place] [facility] dical BIVALENT 0.5ML, IM, Branc h (MODERNA BOOSTER) Influenza Virus 2022-07-08 Completed Universit y of Vaccine,quad 00:00:00 [place] [facility] Im,preserve Free 65+ Bran ch SARS-COV-2 COVID-19 2022-07-08 Completed Unive rsity of VACCINE 12 YRS+, 00:00:00 [place] [facility] dical BIVALENT 0.5ML, IM, Branc h (MODERNA BOOSTER) Influenza Virus 2022-07-08 Completed Universit y of Vaccine,quad 00:00:00 [place] [facility] Im,preserve Free 65+ Bran ch SARS-COV-2 COVID-19 2022-07-08 Completed Unive rsity of VACCINE 12 YRS+, 00:00:00 [place] Me dical BIVALENT 0.5ML, IM, Branc h (MODERNA BOOSTER) Influenza Virus 2022-07-08 Completed Universit y of Vaccine,quad 00:00:00 [place] [facility] Im,preserve Free 65+ Bran ch SARS-COV-2 COVID-19 2022-07-08 Completed Unive rsity of VACCINE 12 YRS+, 00:00:00 [place] [facility]ical BIVALENT 0.5ML, IM, Branc h (MODERNA) SARS-COV-2 COVID-19 2022-01-06 Completed Unive rsity of MODERNA 0.25ML 00:00:00 [place] [facility] esdras BOOSTER VACCINE Branch SARS-COV-2 COVID-19 2022-01-06 Completed Unive rsity of MODERNA 0.25ML 00:00:00 [place] [facility] esdras BOOSTER VACCINE Branch SARS-COV-2 COVID-19 2022-01-06 Completed Unive rsity of MODERNA 0.25ML 00:00:00 [place] [facility] esdras BOOSTER VACCINE Branch SARS-COV-2 COVID-19 2022-01-06 Completed Unive rsity of MODERNA 0.25ML 00:00:00 [place] [facility] esdras BOOSTER VACCINE Branch SARS-COV-2 COVID-19 2022-01-06 Completed Unive rsity of MODERNA 0.25ML 00:00:00 [place] [facility] esdras BOOSTER VACCINE Branch SARS-COV-2 COVID-19 2022-01-06 Completed Unive rsity of MODERNA 0.25ML 00:00:00 [place] [facility]i esdras BOOSTER VACCINE Branch SARS-COV-2 COVID-19 2022-01-06 Completed Unive rsity of MODERNA 0.25ML 00:00:00 [place] Medi esdras BOOSTER VACCINE Branch SARS-COV-2 COVID-19 2022-01-06 Completed Unive rsity of MODERNA 0.25ML 00:00:00 [place] [facility] esdras BOOSTER VACCINE Branch SARS-COV-2 COVID-19 2022-01-06 Completed Unive rsity of MODERNA 0.25ML 00:00:00 [place] [facility]i esdras BOOSTER VACCINE Branch SARS-COV-2 COVID-19 2022-01-06 Completed Unive rsity of MODERNA 0.25ML 00:00:00 [place] [facility] esdras BOOSTER VACCINE Branch SARS-COV-2 COVID-19 2022-01-06 Completed Unive rsity of MODERNA 0.25ML 00:00:00 [place] [facility] esdras BOOSTER VACCINE Branch SARS-COV-2 COVID-19 2022-01-06 Completed Unive rsity of MODERNA 0.25ML 00:00:00 [place] [facility]i esdras BOOSTER VACCINE Branch SARS-COV-2 COVID-19 2022-01-06 Completed Unive rsity of MODERNA 0.25ML 00:00:00 [place] [facility]i esdras BOOSTER VACCINE Branch SARS-COV-2 COVID-19 2022-01-06 Completed Unive rsity of MODERNA 0.25ML 00:00:00 [place] [facility] esdras BOOSTER VACCINE Branch SARS-COV-2 COVID-19 2022-01-06 Completed Unive rsity of MODERNA 0.25ML 00:00:00 [place] [facility]i esdras BOOSTER VACCINE Branch SARS-COV-2 COVID-19 2022-01-06 Completed Unive rsity of MODERNA 0.25ML 00:00:00 [place] [facility] esdras BOOSTER VACCINE Branch SARS-COV-2 COVID-19 2022-01-06 Completed Unive rsity of MODERNA 0.25ML 00:00:00 [place] [facility]i esdras BOOSTER VACCINE Branch SARS-COV-2 COVID-19 2022-01-06 Completed Unive rsity of MODERNA 0.25ML 00:00:00 [place] [facility] esdras BOOSTER VACCINE Branch SARS-COV-2 COVID-19 2022-01-06 Completed Unive rsity of MODERNA 0.25ML 00:00:00 [place] [facility] esdras BOOSTER VACCINE Branch SARS-COV-2 COVID-19 2022-01-06 Completed Unive rsity of MODERNA 0.25ML 00:00:00 [place] [facility] esdras BOOSTER VACCINE Branch SARS-COV-2 COVID-19 2022-01-06 Completed Unive rsity of MODERNA 0.25ML 00:00:00 [place] [facility] esdras BOOSTER VACCINE Branch SARS-COV-2 COVID-19 2022-01-06 Completed Unive rsity of MODERNA 0.25ML 00:00:00 [place] [facility] esdras BOOSTER VACCINE Branch SARS-COV-2 COVID-19 2022-01-06 Completed Unive rsity of MODERNA 0.25ML 00:00:00 [place] [facility] esdras BOOSTER VACCINE Branch SARS-COV-2 COVID-19 2022-01-06 Completed Unive rsity of MODERNA 0.25ML 00:00:00 [place] [facility] esdras BOOSTER VACCINE Branch SARS-COV-2 COVID-19 2022-01-06 Completed Unive rsity of MODERNA 0.25ML 00:00:00 [place] [facility] esdras BOOSTER VACCINE Branch SARS-COV-2 COVID-19 2022-01-06 Completed Unive rsity of MODERNA 0.25ML 00:00:00 [place] [facility]dras BOOSTER VACCINE Branch SARS-COV-2 COVID-19 2022-01-06 Completed Unive rsity of MODERNA 0.25ML 00:00:00 [place] [facility]dras BOOSTER VACCINE Branch SARS-COV-2 COVID-19 2022-01-06 Completed Unive rsity of MODERNA 0.25ML 00:00:00 [place] [facility]dr[facility] BOOSTER VACCINE Branch SARS-COV-2 COVID-19 2022-01-06 Completed Unive rsity of MODERNA 0.25ML 00:00:00 [place] [facility]dras BOOSTER VACCINE Branch SARS-COV-2 COVID-19 2022-01-06 Completed Unive rsity of MODERNA 0.25ML 00:00:00 [place] [facility]dras BOOSTER VACCINE Branch SARS-COV-2 COVID-19 2022-01-06 Completed Unive rsity of MODERNA 0.25ML 00:00:00 [place] [facility]dras BOOSTER VACCINE Branch SARS-COV-2 COVID-19 2022-01-06 Completed Unive rsity of MODERNA 0.25ML 00:00:00 [place] [facility]dras BOOSTER VACCINE Branch SARS-COV-2 COVID-19 2022-01-06 Completed Unive rsity of MODERNA 0.25ML 00:00:00 [place] [facility]dras BOOSTER VACCINE Branch SARS-COV-2 COVID-19 2022-01-06 Completed Unive rsity of MODERNA 0.25ML 00:00:00 [place] [facility]dras BOOSTER VACCINE Branch SARS-COV-2 COVID-19 2022-01-06 Completed Unive rsity of MODERNA 0.25ML 00:00:00 [place] [facility]dras BOOSTER VACCINE Branch SARS-COV-2 COVID-19 2022-01-06 Completed Unive rsity of MODERNA 0.25ML 00:00:00 [place] [facility]dr[facility] BOOSTER VACCINE Branch SARS-COV-2 COVID-19 2022-01-06 Completed Unive rsity of MODERNA 0.25ML 00:00:00 [place] [facility]dras BOOSTER VACCINE Branch SARS-COV-2 COVID-19 2022-01-06 Completed Unive rsity of MODERNA 0.25ML 00:00:00 [place] [facility]dr[facility] BOOSTER VACCINE Branch SARS-COV-2 COVID-19 2022-01-06 Completed Unive rsity of MODERNA 0.25ML 00:00:00 [place] [facility]dr[facility] BOOSTER VACCINE Branch SARS-COV-2 COVID-19 2022-01-06 Completed Unive rsity of MODERNA 0.25ML 00:00:00 [place] [facility] BOOSTER VACCINE Branch SARS-COV-2 COVID-19 2022-01-06 Completed Unive rsity of MODERNA 0.25ML 00:00:00 [place] [facility] BOOSTER VACCINE Branch SARS-COV-2 COVID-19 2022-01-06 Completed Unive rsity of MODERNA 0.25ML 00:00:00 [place] [facility] BOOSTER VACCINE Branch SARS-COV-2 COVID-19 2022-01-06 Completed Unive rsity of MODERNA 0.25ML 00:00:00 [place] [facility] BOOSTER VACCINE Branch SARS-COV-2 COVID-19 2021-07-11 Completed Unive rsity of MODERNA 0.25ML 00:00:00 [place] [facility] BOOSTER VACCINE Branch SARS-COV-2 COVID-19 2021-07-11 Completed Unive rsity of MODERNA 0.25ML 00:00:00 [place] [facility] BOOSTER VACCINE Branch SARS-COV-2 COVID-19 2021-07-11 Completed Unive rsity of MODERNA 0.25ML 00:00:00 [place] [facility] BOOSTER VACCINE Branch SARS-COV-2 COVID-19 2021-07-11 Completed Unive rsity of MODERNA 0.25ML 00:00:00 [place] [facility]dras BOOSTER VACCINE Branch SARS-COV-2 COVID-19 2021-07-11 Completed Unive rsity of MODERNA 0.25ML 00:00:00 [place] [facility]dras BOOSTER VACCINE Branch SARS-COV-2 COVID-19 2021-07-11 Completed Unive rsity of MODERNA 0.25ML 00:00:00 [place] [facility]dras BOOSTER VACCINE Branch SARS-COV-2 COVID-19 2021-07-11 Completed Unive rsity of MODERNA 0.25ML 00:00:00 [place] [facility]dr[facility] BOOSTER VACCINE Branch SARS-COV-2 COVID-19 2021-07-11 Completed Unive rsity of MODERNA 0.25ML 00:00:00 [place] [facility]dras BOOSTER VACCINE Branch SARS-COV-2 COVID-19 2021-07-11 Completed Unive rsity of MODERNA 0.25ML 00:00:00 [place] [facility]dr[facility] BOOSTER VACCINE Branch SARS-COV-2 COVID-19 2021-07-11 Completed Unive rsity of MODERNA 0.25ML 00:00:00 [place] [facility]dr[facility] BOOSTER VACCINE Branch SARS-COV-2 COVID-19 2021-07-11 Completed Unive rsity of MODERNA 0.25ML 00:00:00 [place] [facility] BOOSTER VACCINE Branch SARS-COV-2 COVID-19 2021-07-11 Completed Unive rsity of MODERNA 0.25ML 00:00:00 [place] [facility]dr[facility] BOOSTER VACCINE Branch SARS-COV-2 COVID-19 2021-07-11 Completed Unive rsity of MODERNA 0.25ML 00:00:00 [place] [facility]dr[facility] BOOSTER VACCINE Branch SARS-COV-2 COVID-19 2021-07-11 Completed Unive rsity of MODERNA 0.25ML 00:00:00 [place] [facility] BOOSTER VACCINE Branch SARS-COV-2 COVID-19 2021-07-11 Completed Unive rsity of MODERNA 0.25ML 00:00:00 [place] [facility] BOOSTER VACCINE Branch SARS-COV-2 COVID-19 2021-07-11 Completed Unive rsity of MODERNA 0.25ML 00:00:00 [place] [facility]dr[facility]ACC[facility] SARS-COV-2 COVID-19 2021-07-11 Completed [facility] MODERNA 0.25ML 00:00:00 [place] [facility] SARS-COV-2 COVID-19 2021-07-11 Completed [facility] MODERNA 0.25ML 00:00:00 [place] [facility] SARS-COV-2 COVID-19 2021-07-11 Completed [facility] MODERNA 0.25ML 00:00:00 [place] [facility] SARS-COV-2 COVID-19 2021-07-11 Completed [facility] MODERNA 0.25ML 00:00:00 [place] [facility] SARS-COV-2 COVID-19 2021-07-11 Completed [facility] MODERNA 0.25ML 00:00:00 [place] [facility] SARS-COV-2 COVID-19 2021-07-11 Completed [facility] MODERNA 0.25ML 00:00:00 [place] [facility]ACC[facility] SARS-COV-2 COVID-19 2021-07-11 Completed [facility] MODERNA 0.25ML 00:00:00 [place] [facility]ACC[facility] SARS-COV-2 COVID-19 2021-07-11 Completed [facility] MODERNA 0.25ML 00:00:00 [place] [facility]ACC[facility] SARS-COV-2 COVID-19 2021-07-11 Completed [facility] MODERNA 0.25ML 00:00:00 [place] [facility]ACC[facility] SARS-COV-2 COVID-19 2021-07-11 Completed [facility] MODERNA 0.25ML 00:00:00 [place] [facility] SARS-COV-2 COVID-19 2021-07-11 Completed [facility] of MODERNA 0.25ML 00:00:00 [place] [facility] SARS-COV-2 COVID-19 2021-07-11 Completed [facility] MODERNA 0.25ML 00:00:00 [place] [facility] SARS-COV-2 COVID-19 2021-07-11 Completed [facility] MODERNA 0.25ML 00:00:00 [place] [facility] SARS-COV-2 COVID-19 2021-07-11 Completed [facility] MODERNA 0.25ML 00:00:00 [place] [facility] SARS-COV-2 COVID-19 2021-07-11 Completed [facility] MODERNA 0.25ML 00:00:00 [place] [facility] SARS-COV-2 COVID-19 2021-07-11 Completed [facility] MODERNA 0.25ML 00:00:00 [place] [facility] SARS-COV-2 COVID-19 2021-07-11 Completed [facility] MODERNA 0.25ML 00:00:00 [place] [facility] SARS-COV-2 COVID-19 2021-07-11 Completed [facility] MODERNA 0.25ML 00:00:00 [place] [facility] SARS-COV-2 COVID-19 2021-07-11 Completed [facility] MODERNA 0.25ML 00:00:00 [place] [facility] SARS-COV-2 COVID-19 2021-07-11 Completed [facility] MODERNA 0.25ML 00:00:00 [place] [facility] SARS-COV-2 COVID-19 2021-07-11 Completed [facility] MODERNA 0.25ML 00:00:00 [place] [facility] SARS-COV-2 COVID-19 2021-07-11 Completed [facility] MODERNA 0.25ML 00:00:00 [place] [facility] SARS-COV-2 COVID-19 2021-07-11 Completed [facility] MODERNA 0.25ML 00:00:00 [place] [facility] SARS-COV-2 COVID-19 2021-07-11 Completed [facility] MODERNA 0.25ML 00:00:00 [place] [facility] SARS-COV-2 COVID-19 2021-07-11 Completed [facility] MODERNA 0.25ML 00:00:00 [place] [facility] SARS-COV-2 COVID-19 2021-07-11 Completed [facility] MODERNA 0.25ML 00:00:00 [place] [facility] SARS-COV-2 COVID-19 2021-07-11 Completed [facility] MODERNA 0.25ML 00:00:00 [place] [facility] Influenza High Dose 2021-05-20 Completed [facility] 00:00:00 [facility] Influenza High Dose 2021-05-20 Completed [facility] 00:00:00 [facility] Influenza High Dose 2021-05-20 Completed [facility] 00:00:00 [facility] Influenza High Dose 2021-05-20 Completed [facility] 00:00:00 [facility] Influenza High Dose 2021-05-20 Completed [facility] 00:00:00 [facility] Influenza High Dose 2021-05-20 Completed [facility] 00:00:00 [facility] Influenza High Dose 2021-05-20 Completed [facility] 00:00:00 [facility] Influenza High Dose 2021-05-20 Completed [facility] 00:00:00 [facility] Influenza High Dose 2021-05-20 Completed [facility] 00:00:00 [facility] Influenza High Dose 2021-05-20 Completed [facility] 00:00:00 [facility] Influenza High Dose 2021-05-20 Completed [facility] 00:00:00 [facility] Influenza High Dose 2021-05-20 Completed [facility] 00:00:00 [facility] Influenza High Dose 2021-05-20 Completed [facility] 00:00:00 [facility] Influenza High Dose 2021-05-20 Completed [facility] 00:00:00 [facility] Influenza High Dose 2021-05-20 Completed [facility] 00:00:00 [facility] Influenza High Dose 2021-05-20 Completed [facility] 00:00:00 [facility] Influenza High Dose 2021-05-20 Completed [facility] 00:00:00 [facility] Influenza High Dose 2021-05-20 Completed [facility] 00:00:00 [facility] Influenza High Dose 2021-05-20 Completed [facility] 00:00:00 [facility] Influenza High Dose 2021-05-20 Completed [facility] 00:00:00 [facility] Influenza High Dose 2021-05-20 Completed [facility] 00:00:00 [facility] Influenza High Dose 2021-05-20 Completed [facility] 00:00:00 [facility] Influenza High Dose 2021-05-20 Completed [facility] 00:00:00 [facility] Influenza High Dose 2021-05-20 Completed [facility] 00:00:00 [facility] Influenza High Dose 2021-05-20 Completed [facility] 00:00:00 [facility] Influenza High Dose 2021-05-20 Completed [facility] 00:00:00 [facility] Influenza High Dose 2021-05-20 Completed [facility] 00:00:00 [facility] Influenza High Dose 2021-05-20 Completed [facility] 00:00:00 [facility] Influenza High Dose 2021-05-20 Completed [facility] 00:00:00 [facility] Influenza High Dose 2021-05-20 Completed [facility] 00:00:00 [facility] Influenza High Dose 2021-05-20 Completed [facility] 00:00:00 [facility] Influenza High Dose 2021-05-20 Completed [facility] 00:00:00 [facility] Influenza High Dose 2021-05-20 Completed [facility] 00:00:00 [facility] Influenza High Dose 2021-05-20 Completed [facility] of 00:00:00 [facility] Influenza High Dose 2021-05-20 Completed [facility] of 00:00:00 [facility] Influenza High Dose 2021-05-20 Completed [facility] of 00:00:00 [facility] Influenza High Dose 2021-05-20 Completed [facility] of 00:00:00 [facility] Influenza High Dose 2021-05-20 Completed [facility] of 00:00:00 [facility] Influenza High Dose 2021-05-20 Completed [facility] of 00:00:00 [facility] Influenza High Dose 2021-05-20 Completed [facility] of 00:00:00 [facility] Influenza High Dose 2021-05-20 Completed [facility] of 00:00:00 [facility] Influenza High Dose 2021-05-20 Completed [facility] of 00:00:00 [facility] Influenza High Dose 2021-05-20 Completed [facility] of 00:00:00 [facility] SARS-COV-2 COVID-19 2020-10-23 Completed [facility] of MODERNA 12+ YRS 00:00:00 [place] [facility] SARS-COV-2 COVID-19 2020-10-23 Completed [facility] of MODERNA 12+ YRS 00:00:00 [place] [facility] SARS-COV-2 COVID-19 2020-10-23 Completed [facility] of MODERNA 12+ YRS 00:00:00 [place] [facility] SARS-COV-2 COVID-19 2020-10-23 Completed [facility] of MODERNA 12+ YRS 00:00:00 [place] [facility] SARS-COV-2 COVID-19 2020-10-23 Completed [facility] MODERNA 12+ YRS 00:00:00 [place] [facility] SARS-COV-2 COVID-19 2020-10-23 Completed [facility] of MODERNA 12+ YRS 00:00:00 [facility] ical VACCINE Branch SARS-COV-2 COVID-19 2020-10-23 Completed [facility] of MODERNA 12+ YRS 00:00:00 [place] [facility] SARS-COV-2 COVID-19 2020-10-23 Completed [facility] of MODERNA 12+ YRS 00:00:00 [place] [facility] SARS-COV-2 COVID-19 2020-10-23 Completed [facility] of MODERNA 12+ YRS 00:00:00 [place] [facility] SARS-COV-2 COVID-19 2020-10-23 Completed [facility] of MODERNA 12+ YRS 00:00:00 [place] [facility] SARS-COV-2 COVID-19 2020-10-23 Completed [facility] of MODERNA 12+ YRS 00:00:00 [place] [facility] SARS-COV-2 COVID-19 2020-10-23 Completed [facility] of MODERNA 12+ YRS 00:00:00 [place] [facility] SARS-COV-2 COVID-19 2020-10-23 Completed [facility] of MODERNA 12+ YRS 00:00:00 [place] [facility] SARS-COV-2 COVID-19 2020-10-23 Completed [facility] of MODERNA 12+ YRS 00:00:00 [place] [facility] SARS-COV-2 COVID-19 2020-10-23 Completed [facility] of MODERNA 12+ YRS 00:00:00 [place] [facility] SARS-COV-2 COVID-19 2020-10-23 Completed [facility] of MODERNA 12+ YRS 00:00:00 [place] [facility] SARS-COV-2 COVID-19 2020-10-23 Completed [facility] of MODERNA 12+ YRS 00:00:00 [place] [facility] SARS-COV-2 COVID-19 2020-10-23 Completed [facility] of MODERNA 12+ YRS 00:00:00 [place] [facility] SARS-COV-2 COVID-19 2020-10-23 Completed [facility] of MODERNA 12+ YRS 00:00:00 [place] [facility] SARS-COV-2 COVID-19 2020-10-23 Completed [facility] of MODERNA 12+ YRS 00:00:00 [place] [facility] SARS-COV-2 COVID-19 2020-10-23 Completed [facility] of MODERNA 12+ YRS 00:00:00 [place] [facility] SARS-COV-2 COVID-19 2020-10-23 Completed [facility] of MODERNA 12+ YRS 00:00:00 [place] [facility] SARS-COV-2 COVID-19 2020-10-23 Completed [facility] of MODERNA 12+ YRS 00:00:00 [place] [facility] SARS-COV-2 COVID-19 2020-10-23 Completed [facility] of MODERNA 12+ YRS 00:00:00 [place] [facility] SARS-COV-2 COVID-19 2020-10-23 Completed [facility] of MODERNA 12+ YRS 00:00:00 [place] [facility] SARS-COV-2 COVID-19 2020-10-23 Completed [facility] of MODERNA 12+ YRS 00:00:00 [place] [facility] SARS-COV-2 COVID-19 2020-10-23 Completed [facility] of MODERNA 12+ YRS 00:00:00 [place] [facility] SARS-COV-2 COVID-19 2020-10-23 Completed [facility] of MODERNA 12+ YRS 00:00:00 [place] [facility] SARS-COV-2 COVID-19 2020-10-23 Completed [facility] of MODERNA 12+ YRS 00:00:00 [place] [facility] SARS-COV-2 COVID-19 2020-10-23 Completed [facility] of MODERNA 12+ YRS 00:00:00 [place] [facility] SARS-COV-2 COVID-19 2020-10-23 Completed [facility] of MODERNA 12+ YRS 00:00:00 [place] [facility] SARS-COV-2 COVID-19 2020-10-23 Completed [facility] of MODERNA 12+ YRS 00:00:00 [place] [facility] SARS-COV-2 COVID-19 2020-10-23 Completed [facility] of MODERNA 12+ YRS 00:00:00 [place] [facility] SARS-COV-2 COVID-19 2020-10-23 Completed [facility] of MODERNA 12+ YRS 00:00:00 [place] [facility] SARS-COV-2 COVID-19 2020-10-23 Completed [facility] of MODERNA 12+ YRS 00:00:00 [place] [facility] SARS-COV-2 COVID-19 2020-10-23 Completed [facility] of MODERNA 12+ YRS 00:00:00 [place] [facility] SARS-COV-2 COVID-19 2020-10-23 Completed [facility] of MODERNA 12+ YRS 00:00:00 [place] [facility] SARS-COV-2 COVID-19 2020-10-23 Completed [facility] of MODERNA 12+ YRS 00:00:00 [place] [facility] SARS-COV-2 COVID-19 2020-10-23 Completed [facility] of MODERNA 12+ YRS 00:00:00 [place] [facility] SARS-COV-2 COVID-19 2020-10-23 Completed [facility] of MODERNA 12+ YRS 00:00:00 [place] [facility] SARS-COV-2 COVID-19 2020-10-23 Completed [facility] of MODERNA 12+ YRS 00:00:00 [place] [facility] SARS-COV-2 COVID-19 2020-10-23 Completed [facility] of MODERNA 12+ YRS 00:00:00 [place] [facility] SARS-COV-2 COVID-19 2020-10-23 Completed [facility] of MODERNA 12+ YRS 00:00:00 [place] [facility] SARS-COV-2 COVID-19 2020-09-24 Completed [facility] of MODERNA 12+ YRS 00:00:00 [place] [facility] SARS-COV-2 COVID-19 2020-09-24 Completed [facility] of MODERNA 12+ YRS 00:00:00 [place] [facility] SARS-COV-2 COVID-19 2020-09-24 Completed [facility] of MODERNA 12+ YRS 00:00:00 [place] [facility] SARS-COV-2 COVID-19 2020-09-24 Completed [facility] of MODERNA 12+ YRS 00:00:00 [place] [facility] SARS-COV-2 COVID-19 2020-09-24 Completed [facility] of MODERNA 12+ YRS 00:00:00 [place] [facility] SARS-COV-2 COVID-19 2020-09-24 Completed [facility] of MODERNA 12+ YRS 00:00:00 [place] [facility] SARS-COV-2 COVID-19 2020-09-24 Completed [facility] of MODERNA 12+ YRS 00:00:00 [place] [facility] SARS-COV-2 COVID-19 2020-09-24 Completed [facility] of MODERNA 12+ YRS 00:00:00 [place] [facility] SARS-COV-2 COVID-19 2020-09-24 Completed [facility] of MODERNA 12+ YRS 00:00:00 [place] [facility] SARS-COV-2 COVID-19 2020-09-24 Completed [facility] of MODERNA 12+ YRS 00:00:00 [place] [facility] SARS-COV-2 COVID-19 2020-09-24 Completed [facility] of MODERNA 12+ YRS 00:00:00 [place] [facility] SARS-COV-2 COVID-19 2020-09-24 Completed [facility] of MODERNA 12+ YRS 00:00:00 [place] [facility] SARS-COV-2 COVID-19 2020-09-24 Completed [facility] of MODERNA 12+ YRS 00:00:00 [place] [facility] SARS-COV-2 COVID-19 2020-09-24 Completed [facility] of MODERNA 12+ YRS 00:00:00 [place] [facility] SARS-COV-2 COVID-19 2020-09-24 Completed [facility] of MODERNA 12+ YRS 00:00:00 [place] [facility] SARS-COV-2 COVID-19 2020-09-24 Completed [facility] of MODERNA 12+ YRS 00:00:00 [place] [facility] SARS-COV-2 COVID-19 2020-09-24 Completed [facility] of MODERNA 12+ YRS 00:00:00 [place] [facility] SARS-COV-2 COVID-19 2020-09-24 Completed [facility] of MODERNA 12+ YRS 00:00:00 [place] [facility] SARS-COV-2 COVID-19 2020-09-24 Completed [facility] of MODERNA 12+ YRS 00:00:00 [place] [facility] SARS-COV-2 COVID-19 2020-09-24 Completed [facility] of MODERNA 12+ YRS 00:00:00 [place] [facility] SARS-COV-2 COVID-19 2020-09-24 Completed [facility] of MODERNA 12+ YRS 00:00:00 [place] [facility] SARS-COV-2 COVID-19 2020-09-24 Completed [facility] of MODERNA 12+ YRS 00:00:00 [place] [facility] SARS-COV-2 COVID-19 2020-09-24 Completed [facility] of MODERNA 12+ YRS 00:00:00 [place] [facility] SARS-COV-2 COVID-19 2020-09-24 Completed [facility] of MODERNA 12+ YRS 00:00:00 [place] [facility] SARS-COV-2 COVID-19 2020-09-24 Completed [facility] of MODERNA 12+ YRS 00:00:00 [place] [facility] SARS-COV-2 COVID-19 2020-09-24 Completed [facility] of MODERNA 12+ YRS 00:00:00 [place] [facility] SARS-COV-2 COVID-19 2020-09-24 Completed [facility] of MODERNA 12+ YRS 00:00:00 [place] [facility] SARS-COV-2 COVID-19 2020-09-24 Completed [facility] of MODERNA 12+ YRS 00:00:00 [place] [facility] SARS-COV-2 COVID-19 2020-09-24 Completed [facility] of MODERNA 12+ YRS 00:00:00 [place] [facility] SARS-COV-2 COVID-19 2020-09-24 Completed [facility] of MODERNA 12+ YRS 00:00:00 [place] [facility] SARS-COV-2 COVID-19 2020-09-24 Completed [facility] of MODERNA 12+ YRS 00:00:00 [place] [facility] SARS-COV-2 COVID-19 2020-09-24 Completed [facility] of MODERNA 12+ YRS 00:00:00 [place] [facility] SARS-COV-2 COVID-19 2020-09-24 Completed [facility] of MODERNA 12+ YRS 00:00:00 [place] [facility] SARS-COV-2 COVID-19 2020-09-24 Completed [facility] of MODERNA 12+ YRS 00:00:00 [place] [facility] SARS-COV-2 COVID-19 2020-09-24 Completed [facility] of MODERNA 12+ YRS 00:00:00 [place] [facility] SARS-COV-2 COVID-19 2020-09-24 Completed [facility] of MODERNA 12+ YRS 00:00:00 [place] [facility] SARS-COV-2 COVID-19 2020-09-24 Completed [facility] of MODERNA 12+ YRS 00:00:00 [place] [facility] SARS-COV-2 COVID-19 2020-09-24 Completed [facility] of MODERNA 12+ YRS 00:00:00 [place] [facility] SARS-COV-2 COVID-19 2020-09-24 Completed [facility] of MODERNA 12+ YRS 00:00:00 [place] [facility] SARS-COV-2 COVID-19 2020-09-24 Completed [facility] of MODERNA 12+ YRS 00:00:00 [place] [facility] SARS-COV-2 COVID-19 2020-09-24 Completed [facility] of MODERNA 12+ YRS 00:00:00 [place] [facility] SARS-COV-2 COVID-19 2020-09-24 Completed [facility] of MODERNA 12+ YRS 00:00:00 [place] [facility] SARS-COV-2 COVID-19 2020-09-24 Completed [facility] of MODERNA 12+ YRS 00:00:00 [facility] ical VACCINE Branch Influenza High Dose 2019-05-17 Completed [facility] of 00:00:00 [facility] Influenza High Dose 2019-05-17 Completed [facility] of 00:00:00 [facility] Influenza High Dose 2019-05-17 Completed [facility] of 00:00:00 [facility] Influenza High Dose 2019-05-17 Completed [facility]ity of 00:00:00 [facility] Influenza High Dose 2019-05-17 Completed [facility] of 00:00:00 [facility] Influenza High Dose 2019-05-17 Completed [facility] of 00:00:00 [facility] Influenza High Dose 2019-05-17 Completed [facility]ity of 00:00:00 [facility] Influenza High Dose 2019-05-17 Completed [facility] of 00:00:00 [facility] Influenza High Dose 2019-05-17 Completed [facility] of 00:00:00 [facility] Influenza High Dose 2019-05-17 Completed [facility] of 00:00:00 [facility] Influenza High Dose 2019-05-17 Completed [facility]ity of 00:00:00 [facility] Influenza High Dose 2019-05-17 Completed [facility] of 00:00:00 [facility] Influenza High Dose 2019-05-17 Completed [facility] of 00:00:00 [facility] Influenza High Dose 2019-05-17 Completed [facility] of 00:00:00 [facility] Influenza High Dose 2019-05-17 Completed [facility] of 00:00:00 [facility] Influenza High Dose 2019-05-17 Completed [facility] of 00:00:00 [facility] Influenza High Dose 2019-05-17 Completed [facility] of 00:00:00 [facility] Influenza High Dose 2019-05-17 Completed [facility] of 00:00:00 [facility] Influenza High Dose 2019-05-17 Completed [facility] of 00:00:00 [facility] Influenza High Dose 2019-05-17 Completed [facility] of 00:00:00 [facility] Influenza High Dose 2019-05-17 Completed [facility] of 00:00:00 [facility] Influenza High Dose 2019-05-17 Completed [facility] of 00:00:00 [facility] Influenza High Dose 2019-05-17 Completed [facility] of 00:00:00 [facility] Influenza High Dose 2019-05-17 Completed [facility] of 00:00:00 [facility] Influenza High Dose 2019-05-17 Completed [facility] of 00:00:00 [facility] Influenza High Dose 2019-05-17 Completed [facility] of 00:00:00 [facility] Influenza High Dose 2019-05-17 Completed [facility] of 00:00:00 [facility] Influenza High Dose 2019-05-17 Completed [facility] of 00:00:00 [facility] Influenza High Dose 2019-05-17 Completed [facility] of 00:00:00 [facility] Influenza High Dose 2019-05-17 Completed [facility] of 00:00:00 [facility] Influenza High Dose 2019-05-17 Completed [facility] of 00:00:00 [facility] Influenza High Dose 2019-05-17 Completed [facility] of 00:00:00 [facility] Influenza High Dose 2019-05-17 Completed [facility] of 00:00:00 [facility] Influenza High Dose 2019-05-17 Completed [facility] of 00:00:00 [facility] Influenza High Dose 2019-05-17 Completed [facility] of 00:00:00 [facility] Influenza High Dose 2019-05-17 Completed [facility] of 00:00:00 [facility] Influenza High Dose 2019-05-17 Completed [facility] of 00:00:00 [facility] Influenza High Dose 2019-05-17 Completed [facility] of 00:00:00 [facility] Influenza High Dose 2019-05-17 Completed [facility] of 00:00:00 [facility] Influenza High Dose 2019-05-17 Completed [facility] of 00:00:00 [facility] Influenza High Dose 2019-05-17 Completed [facility] of 00:00:00 [facility] Influenza High Dose 2019-05-17 Completed [facility] of 00:00:00 [facility] Influenza High Dose 2019-05-17 Completed [facility] of 00:00:00 [facility] FLUZONE HIGH-DOSE PF 2019-05-17 Completed Meth odist 00:00:00 Hospital FLUZONE HIGH-DOSE PF 2019-05-17 Completed Meth odist 00:00:00 [facility] Influenza High Dose 2018-06-23 Completed [facility]ive [facility]ity of 00:00:00 [facility] Influenza High Dose 2018-06-23 Completed [facility] of 00:00:00 [facility] Influenza High Dose 2018-06-23 Completed [facility] of 00:00:00 [facility] Influenza High Dose 2018-06-23 Completed [facility] of 00:00:00 [facility] Influenza High Dose 2018-06-23 Completed [facility] of 00:00:00 [facility] Influenza High Dose 2018-06-23 Completed [facility] of 00:00:00 [facility] Influenza High Dose 2018-06-23 Completed [facility] of 00:00:00 [facility] Influenza High Dose 2018-06-23 Completed [facility] of 00:00:00 [facility] Influenza High Dose 2018-06-23 Completed [facility]ity of 00:00:00 [facility] Influenza High Dose 2018-06-23 Completed [facility] of 00:00:00 [facility] Influenza High Dose 2018-06-23 Completed [facility] of 00:00:00 [facility] Influenza High Dose 2018-06-23 Completed [facility] of 00:00:00 [facility] Influenza High Dose 2018-06-23 Completed [facility] of 00:00:00 [facility] Influenza High Dose 2018-06-23 Completed [facility] of 00:00:00 [facility] Influenza High Dose 2018-06-23 Completed [facility]ity of 00:00:00 [facility] Influenza High Dose 2018-06-23 Completed [facility]ity of 00:00:00 [facility] Influenza High Dose 2018-06-23 Completed [facility]ity of 00:00:00 [facility] Influenza High Dose 2018-06-23 Completed [facility]ity of 00:00:00 [facility] Influenza High Dose 2018-06-23 Completed [facility]ity of 00:00:00 [facility] Influenza High Dose 2018-06-23 Completed [facility] rsity of 00:00:00 [facility] Influenza High Dose 2018-06-23 Completed [facility]ity of 00:00:00 [facility] Influenza High Dose 2018-06-23 Completed [facility] of 00:00:00 [facility] Influenza High Dose 2018-06-23 Completed [facility]ity of 00:00:00 [facility] Influenza High Dose 2018-06-23 Completed [facility] rsity of 00:00:00 [facility] Influenza High Dose 2018-06-23 Completed [facility] of 00:00:00 [facility] Influenza High Dose 2018-06-23 Completed [facility]ity of 00:00:00 [facility] Influenza High Dose 2018-06-23 Completed [facility]ity of 00:00:00 [facility] Influenza High Dose 2018-06-23 Completed [facility]ity of 00:00:00 [facility] Influenza High Dose 2018-06-23 Completed [facility]ity of 00:00:00 [facility] Influenza High Dose 2018-06-23 Completed [facility] of 00:00:00 [facility] Influenza High Dose 2018-06-23 Completed [facility] of 00:00:00 [facility] Influenza High Dose 2018-06-23 Completed [facility]ity of 00:00:00 [facility] Influenza High Dose 2018-06-23 Completed [facility]ity of 00:00:00 [facility] Influenza High Dose 2018-06-23 Completed [facility] of 00:00:00 [facility] Influenza High Dose 2018-06-23 Completed [facility]ity of 00:00:00 [facility] Influenza High Dose 2018-06-23 Completed [facility] of 00:00:00 [facility] Influenza High Dose 2018-06-23 Completed [facility] of 00:00:00 [facility] Influenza High Dose 2018-06-23 Completed [facility] of 00:00:00 [facility] Influenza High Dose 2018-06-23 Completed [facility]ity of 00:00:00 [facility] Influenza High Dose 2018-06-23 Completed Unive rsity of 00:00:00 [facility] Influenza High Dose 2018-06-23 Completed Unive rsity of 00:00:00 [facility] Influenza High Dose 2018-06-23 Completed Unive rsity of 00:00:00 [facility] Influenza High Dose 2018-06-23 Completed Unive rsity of 00:00:00 [facility] FLUZONE HIGH-DOSE PF 2018-06-23 Completed Meth odist 00:00:00 Hospital FLUZONE HIGH-DOSE PF 2018-06-23 Completed Meth odist 00:00:00 Hospital Pneumococcal 2017-12-09 Completed University o f Polysaccharide, 00:00:00 [place] [facility] PPSV23 (PNEUMOVAX) Branch Pneumococcal 2017-12-09 Completed University o f Polysaccharide, 00:00:00 [place] [facility] PPSV23 (PNEUMOVAX) Branch Pneumococcal 2017-12-09 Completed University o f Polysaccharide, 00:00:00 [place] [facility] PPSV23 (PNEUMOVAX) Branch Pneumococcal 2017-12-09 Completed University o f Polysaccharide, 00:00:00 [place] [facility] PPSV23 (PNEUMOVAX) Branch Pneumococcal 2017-12-09 Completed University o f Polysaccharide, 00:00:00 [place] [facility] PPSV23 (PNEUMOVAX) Branch Pneumococcal 2017-12-09 Completed University o f Polysaccharide, 00:00:00 [place] [facility] PPSV23 (PNEUMOVAX) Branch Pneumococcal 2017-12-09 Completed University o f Polysaccharide, 00:00:00 [place] [facility] PPSV23 (PNEUMOVAX) Branch Pneumococcal 2017-12-09 Completed University o f Polysaccharide, 00:00:00 [place] [facility] PPSV23 (PNEUMOVAX) Branch Pneumococcal 2017-12-09 Completed University o f Polysaccharide, 00:00:00 [place] [facility] PPSV23 (PNEUMOVAX) Branch Pneumococcal 2017-12-09 Completed University o f Polysaccharide, 00:00:00 [place] [facility] PPSV23 (PNEUMOVAX) Branch Pneumococcal 2017-12-09 Completed University o f Polysaccharide, 00:00:00 [place] [facility] PPSV23 (PNEUMOVAX) Branch Pneumococcal 2017-12-09 Completed University o f Polysaccharide, 00:00:00 [place] [facility] PPSV23 (PNEUMOVAX) Branch Pneumococcal 2017-12-09 Completed University o f Polysaccharide, 00:00:00 [place] [facility] PPSV23 (PNEUMOVAX) Branch Pneumococcal 2017-12-09 Completed University o f Polysaccharide, 00:00:00 [place] [facility] PPSV23 (PNEUMOVAX) Branch Pneumococcal 2017-12-09 Completed University o f Polysaccharide, 00:00:00 [place] [facility] PPSV23 (PNEUMOVAX) Branch Pneumococcal 2017-12-09 Completed University o f Polysaccharide, 00:00:00 [place] [facility] PPSV23 (PNEUMOVAX) Branch Pneumococcal 2017-12-09 Completed University o f Polysaccharide, 00:00:00 [place] [facility] PPSV23 (PNEUMOVAX) Branch Pneumococcal 2017-12-09 Completed University o f Polysaccharide, 00:00:00 [place] [facility] PPSV23 (PNEUMOVAX) Branch Pneumococcal 2017-12-09 Completed University o f Polysaccharide, 00:00:00 [place] [facility] PPSV23 (PNEUMOVAX) Branch Pneumococcal 2017-12-09 Completed University o f Polysaccharide, 00:00:00 [place] [facility] PPSV23 (PNEUMOVAX) Branch Pneumococcal 2017-12-09 Completed University o f Polysaccharide, 00:00:00 [place] [facility] PPSV23 (PNEUMOVAX) Branch Pneumococcal 2017-12-09 Completed University o f Polysaccharide, 00:00:00 [place] [facility] PPSV23 (PNEUMOVAX) Branch Pneumococcal 2017-12-09 Completed University o f Polysaccharide, 00:00:00 [place] [facility] PPSV23 (PNEUMOVAX) Branch Pneumococcal 2017-12-09 Completed University o f Polysaccharide, 00:00:00 [place] [facility] PPSV23 (PNEUMOVAX) Branch Pneumococcal 2017-12-09 Completed University o f Polysaccharide, 00:00:00 [place] [facility] PPSV23 (PNEUMOVAX) Branch Pneumococcal 2017-12-09 Completed University o f Polysaccharide, 00:00:00 [place] [facility] PPSV23 (PNEUMOVAX) Branch Pneumococcal 2017-12-09 Completed University o f Polysaccharide, 00:00:00 [place] [facility] PPSV23 (PNEUMOVAX) Branch Pneumococcal 2017-12-09 Completed University o f Polysaccharide, 00:00:00 [place] [facility] PPSV23 (PNEUMOVAX) Branch Pneumococcal 2017-12-09 Completed University o f Polysaccharide, 00:00:00 [place] [facility] PPSV23 (PNEUMOVAX) Branch Pneumococcal 2017-12-09 Completed University o f Polysaccharide, 00:00:00 [place] [facility] PPSV23 (PNEUMOVAX) Branch Pneumococcal 2017-12-09 Completed University o f Polysaccharide, 00:00:00 [place] [facility] PPSV23 (PNEUMOVAX) Branch Pneumococcal 2017-12-09 Completed University o f Polysaccharide, 00:00:00 [place] [facility] PPSV23 (PNEUMOVAX) Branch Pneumococcal 2017-12-09 Completed University o f Polysaccharide, 00:00:00 [place] [facility] PPSV23 (PNEUMOVAX) Branch Pneumococcal 2017-12-09 Completed University o f Polysaccharide, 00:00:00 [place] [facility] PPSV23 (PNEUMOVAX) Branch Pneumococcal 2017-12-09 Completed University o f Polysaccharide, 00:00:00 [place] [facility] PPSV23 (PNEUMOVAX) Branch Pneumococcal 2017-12-09 Completed University o f Polysaccharide, 00:00:00 [place] [facility] PPSV23 (PNEUMOVAX) Branch Pneumococcal 2017-12-09 Completed University o f Polysaccharide, 00:00:00 [place] [facility] PPSV23 (PNEUMOVAX) Branch Pneumococcal 2017-12-09 Completed University o f Polysaccharide, 00:00:00 [place] [facility] PPSV23 (PNEUMOVAX) Branch Pneumococcal 2017-12-09 Completed University o f Polysaccharide, 00:00:00 [place] [facility] PPSV23 (PNEUMOVAX) Branch Pneumococcal 2017-12-09 Completed University o f Polysaccharide, 00:00:00 [place] [facility] PPSV23 (PNEUMOVAX) Branch Pneumococcal 2017-12-09 Completed University o f Polysaccharide, 00:00:00 [place] [facility] PPSV23 (PNEUMOVAX) Branch Pneumococcal 2017-12-09 Completed University o f Polysaccharide, 00:00:00 [place] [facility] PPSV23 (PNEUMOVAX) Branch Pneumococcal 2017-12-09 Completed University o f Polysaccharide, 00:00:00 [place] [facility] PPSV23 (PNEUMOVAX) Branch Pneumococcal 2017-12-09 Completed [facility] Polysaccharide 00:00:00 Hospital Pneumococcal 2017-12-09 Completed [facility] Polysaccharide 00:00:00 [facility] Pneumococcal 13 2016-08-23 Completed Universit y of Conjugate, PCV13 00:00:00 [place] [facility] (Prevnar 13) Branch Pneumococcal 13 2016-08-23 Completed Universit y of Conjugate, PCV13 00:00:00 [place] [facility] (Prevnar 13) Branch Pneumococcal 13 2016-08-23 Completed Universit y of Conjugate, PCV13 00:00:00 [place] [facility] (Prevnar 13) Branch Pneumococcal 13 2016-08-23 Completed Universit y of Conjugate, PCV13 00:00:00 [place] [facility] (Prevnar 13) Branch Pneumococcal 13 2016-08-23 Completed Universit y of Conjugate, PCV13 00:00:00 [place] [facility] (Prevnar 13) Branch Pneumococcal 13 2016-08-23 Completed Universit y of Conjugate, PCV13 00:00:00 [place] [facility] (Prevnar 13) Branch Pneumococcal 13 2016-08-23 Completed Universit y of Conjugate, PCV13 00:00:00 [place] [facility] (Prevnar 13) Branch Pneumococcal 13 2016-08-23 Completed Universit y of Conjugate, PCV13 00:00:00 [place] [facility] (Prevnar 13) Branch Pneumococcal 13 2016-08-23 Completed Universit y of Conjugate, PCV13 00:00:00 [place] [facility] (Prevnar 13) Branch Pneumococcal 13 2016-08-23 Completed Universit y of Conjugate, PCV13 00:00:00 [place] [facility] (Prevnar 13) Branch Pneumococcal 13 2016-08-23 Completed Universit y of Conjugate, PCV13 00:00:00 [place] [facility] (Prevnar 13) Branch Pneumococcal 13 2016-08-23 Completed Universit y of Conjugate, PCV13 00:00:00 [place] [facility] (Prevnar 13) Branch Pneumococcal 13 2016-08-23 Completed Universit y of Conjugate, PCV13 00:00:00 [place] [facility] (Prevnar 13) Branch Pneumococcal 13 2016-08-23 Completed Universit y of Conjugate, PCV13 00:00:00 [place] [facility] (Prevnar 13) Branch Pneumococcal 13 2016-08-23 Completed Universit y of Conjugate, PCV13 00:00:00 [place] [facility] (Prevnar 13) Branch Pneumococcal 13 2016-08-23 Completed Universit y of Conjugate, PCV13 00:00:00 [place] [facility] (Prevnar 13) Branch Pneumococcal 13 2016-08-23 Completed Universit y of Conjugate, PCV13 00:00:00 [place] [facility] (Prevnar 13) Branch Pneumococcal 13 2016-08-23 Completed Universit y of Conjugate, PCV13 00:00:00 [place] [facility] (Prevnar 13) Branch Pneumococcal 13 2016-08-23 Completed Universit y of Conjugate, PCV13 00:00:00 [place] [facility] (Prevnar 13) Branch Pneumococcal 13 2016-08-23 Completed Universit y of Conjugate, PCV13 00:00:00 [place] [facility] (Prevnar 13) Branch Pneumococcal 13 2016-08-23 Completed Universit y of Conjugate, PCV13 00:00:00 [place] [facility] (Prevnar 13) Branch Pneumococcal 13 2016-08-23 Completed Universit y of Conjugate, PCV13 00:00:00 [place] [facility] (Prevnar 13) Branch Pneumococcal 13 2016-08-23 Completed Universit y of Conjugate, PCV13 00:00:00 [place] [facility] (Prevnar 13) Branch Pneumococcal 13 2016-08-23 Completed Universit y of Conjugate, PCV13 00:00:00 [place] [facility] (Prevnar 13) Branch Pneumococcal 13 2016-08-23 Completed Universit y of Conjugate, PCV13 00:00:00 [place] [facility] (Prevnar 13) Branch Pneumococcal 13 2016-08-23 Completed Universit y of Conjugate, PCV13 00:00:00 [place] [facility] (Prevnar 13) Branch Pneumococcal 13 2016-08-23 Completed Universit y of Conjugate, PCV13 00:00:00 [place] [facility] (Prevnar 13) Branch Pneumococcal 13 2016-08-23 Completed Universit y of Conjugate, PCV13 00:00:00 [place] [facility] (Prevnar 13) Branch Pneumococcal 13 2016-08-23 Completed Universit y of Conjugate, PCV13 00:00:00 [place] [facility] (Prevnar 13) Branch Pneumococcal 13 2016-08-23 Completed Universit y of Conjugate, PCV13 00:00:00 [place] [facility] (Prevnar 13) Branch Pneumococcal 13 2016-08-23 Completed Universit y of Conjugate, PCV13 00:00:00 [place] [facility] (Prevnar 13) Branch Pneumococcal 13 2016-08-23 Completed Universit y of Conjugate, PCV13 00:00:00 [place] [facility] (Prevnar 13) Branch Pneumococcal 13 2016-08-23 Completed Universit y of Conjugate, PCV13 00:00:00 [place] [facility] (Prevnar 13) Branch Pneumococcal 13 2016-08-23 Completed Universit y of Conjugate, PCV13 00:00:00 [place] [facility] (Prevnar 13) Branch Pneumococcal 13 2016-08-23 Completed Universit y of Conjugate, PCV13 00:00:00 [place] [facility] (Prevnar 13) Branch Pneumococcal 13 2016-08-23 Completed Universit y of Conjugate, PCV13 00:00:00 [place] [facility] (Prevnar 13) Branch Pneumococcal 13 2016-08-23 Completed Universit y of Conjugate, PCV13 00:00:00 [place] [facility] (Prevnar 13) Branch Pneumococcal 13 2016-08-23 Completed Universit y of Conjugate, PCV13 00:00:00 [place] [facility] (Prevnar 13) Branch Pneumococcal 13 2016-08-23 Completed Universit y of Conjugate, PCV13 00:00:00 [place] [facility] (Prevnar 13) Branch Pneumococcal 13 2016-08-23 Completed Universit y of Conjugate, PCV13 00:00:00 [place] [facility] (Prevnar 13) Branch Pneumococcal 13 2016-08-23 Completed Universit y of Conjugate, PCV13 00:00:00 [place] [facility] (Prevnar 13) Branch Pneumococcal 13 2016-08-23 Completed Universit y of Conjugate, PCV13 00:00:00 [place] [facility] d[facility] (Prevnar 13) Branch Pneumococcal 13 2016-08-23 Completed Universit y of Conjugate, PCV13 00:00:00 [facility] dical (Prevnar 13) Branch Pneumococcal 2016-08-23 Completed [facility] Conjugate 13-Valent 00:00:00 [facility]pi [facility] Pneumococcal 2016-08-23 Completed [facility]ational Conjugate 13-Valent 00:00:00 [facility]pi [facility] Vital Signs Vital Name Observation Time Observation Value Comments Source Systolic blood 2022-12-31 19:38:00 139 mm[Hg] Univer sity of pressure [facility] Diastolic blood 2022-12-31 19:38:00 60 mm[Hg] Unive rsity of [facility] Heart rate 2022-12-31 19:37:00 39 /min Universi ty [facility] Body temperature 2022-12-31 19:37:00 36.61 Imani Univ ersity of [facility] Respiratory rate 2022-12-31 19:37:00 20 /min Univ ersity of [facility] Body height 2022-12-31 19:37:00 165.1 cm Universi ty [facility] [place] Body weight 2022-12-31 19:37:00 94.008 kg Universi ty [facility] BMI 2022-12-31 19:37:00 34.49 kg/m2 Universi ty [facility] Oxygen saturation in 2022-12-31 19:37:00 96 /min University of Arterial blood by [facility] Pulse oximetry Branch Systolic blood 2022-12-10 15:27:00 132 mm[Hg] Univer sity of [facility] Diastolic blood 2022-12-10 15:27:00 56 mm[Hg] Unive rsity of [facility] Heart rate 2022-12-10 15:27:00 47 /min Universi ty [facility] Oxygen saturation in 2022-12-10 15:27:00 97 /min University of Arterial blood by [facility] Pulse oximetry Branch Body height 2022-12-10 15:24:00 165.1 cm Universi ty [facility] Body weight 2022-12-10 15:24:00 94.575 kg Universi ty [facility] BMI 2022-12-10 15:24:00 34.70 kg/m2 Universi ty [facility] [place] [facility] Systolic blood 2022-09-28 19:25:00 135 mm[Hg] Univer sity of pressure [facility] Diastolic blood 2022-09-28 19:25:00 66 mm[Hg] Unive rsity of pressure [facility] Heart rate 2022-09-28 19:25:00 47 /min Universi ty [facility] Body weight 2022-09-28 19:11:00 93.895 kg Universi ty [facility] [place] [facility] BMI 2022-09-28 19:11:00 34.45 kg/m2 Universi ty [facility] [place] [facility] Oxygen saturation in 2022-09-28 19:11:00 97 /min University of Arterial blood by [place] [employer] [facility] Pulse oximetry Branch Systolic blood 2022-09-21 17:00:00 149 mm[Hg] Univer sity of pressure [facility] Diastolic blood 2022-09-21 17:00:00 65 mm[Hg] Unive rsity of pressure [facility] Heart rate 2022-09-21 16:50:00 52 /min Universi ty [facility] [place] [facility] Body height 2022-09-21 16:50:00 165.1 cm Universi ty [facility] [place] [facility] Body weight 2022-09-21 16:50:00 92.534 kg Universi ty [facility] [place] [facility] BMI 2022-09-21 16:50:00 33.95 kg/m2 Universi ty [facility] [place] [facility] Oxygen saturation in 2022-09-21 16:50:00 99 /min University of Arterial blood by [place] [employer] [facility] Pulse oximetry Branch Systolic blood 2022-07-28 21:19:00 139 mm[Hg] Univer sity of pressure [facility] Diastolic blood 2022-07-28 21:19:00 64 mm[Hg] Unive rsity of pressure [facility] Heart rate 2022-07-28 21:19:00 47 /min Universi ty [facility] [place] [facility] Body temperature 2022-07-28 21:19:00 36.67 Imani Univ ersity of [place] [facility] Respiratory rate 2022-07-28 21:19:00 18 /min Univ ersity of [place] [facility] Body height 2022-07-28 21:19:00 165.1 cm Universi ty [facility] [place] [facility] Body weight 2022-07-28 21:19:00 91.173 kg Universi ty [facility] [place] [facility] BMI 2022-07-28 21:19:00 33.45 kg/m2 Universi ty [facility] [place] [facility] Oxygen saturation in 2022-07-28 21:19:00 97 /min University of Arterial blood by [facility] Pulse oximetry Branch Systolic blood 2022-06-24 19:18:00 152 mm[Hg] Univer sity of pressure [facility] Diastolic blood 2022-06-24 19:18:00 86 mm[Hg] Unive rsity of pressure [facility] Heart rate 2022-06-24 19:18:00 48 /min Universi ty [facility] [place] [facility] Body temperature 2022-06-24 19:18:00 36.83 Imani [facility] ersity of [place] [facility] [place] Respiratory rate 2022-06-24 19:18:00 16 /min Univ ersity of [place] [facility] Body weight 2022-06-24 19:18:00 92.08 kg Universi ty [facility] [place] [facility] BMI 2022-06-24 19:18:00 33.78 kg/m2 Universi ty [facility] [place] [facility] Oxygen saturation in 2022-06-24 19:18:00 98 /min University of Arterial blood by [facility] Pulse oximetry Branch Body temperature 2022-06-23 16:11:00 36.39 Imani [facility] ersity of [place] [facility] [place] Body height 2022-06-23 16:11:00 165.1 cm Universi ty [facility] [place] [facility] Body weight 2022-06-23 16:11:00 92.08 kg Universi ty [facility] [place] [facility] BMI 2022-06-23 16:11:00 33.78 kg/m2 Universi ty [facility] [place] [facility] Body temperature 2022-06-05 14:59:00 36.33 Imani Univ ersity of [place] [facility] Body height 2022-06-05 14:59:00 165.1 cm Universi ty [facility] [place] [facility] Body weight 2022-06-05 14:59:00 92.398 kg Universi ty [facility] [place] [facility] BMI 2022-06-05 14:59:00 33.90 kg/m2 Universi ty [facility] [place] [facility] Body temperature 2022-05-26 19:44:00 36.72 Imani Univ ersity of [place] [facility] Body height 2022-05-26 19:44:00 165.1 cm Universi ty of [facility] Body weight 2022-05-26 19:44:00 92.534 kg Universi ty [facility] BMI 2022-05-26 19:44:00 33.95 kg/m2 Universi ty [facility] Systolic blood 2022-04-30 19:08:00 147 mm[Hg] Univer sity of [facility] Diastolic blood 2022-04-30 19:08:00 81 mm[facility]Hg] [facility] 2022-04-30 19:08:00 51 /min Universi ty [facility] Body temperature 2022-04-30 19:08:00 37 Imani [facility] Respiratory rate 2022-04-30 19:08:00 19 /min [facility] 2022-04-30 19:08:00 165.1 cm Universi ty [facility] Body weight 2022-04-30 19:08:00 92.08 kg Universi ty [facility] BMI 2022-04-30 19:08:00 33.78 kg/m2 Universi [facility] Procedures Procedure Date / Time Performing Clinician Source Performed [facility] PATIENT FINANCIAL 2022-12-10 15:05:34 Doctor Unassigned, No [facility] POLICY [facility] PATIENT QUESTIONNAIRE 2022-09-28 06:01:00 Doctor Unassigned, No [facility] EXTERNAL PROVIDER - ADC 2022-08-14 06:01:00 Doctor Unassigned, N o [facility] CARDIOLOGY [facility] AUTHORIZATION TO RELEASE 2022-07-28 06:01:00 Doctor Unassigned, No [facility] PHI TO [facility] SARS-COV-2 COVID-19 2022-07-08 15:38:02 [facility] BIVALENT 0.5ML, IM (MODERNA BOOSTER) FLU 2022-07-08 15:29:18 Doctor Unassigned, No [facility] VACC(),65+YR,0. [facility] 5 ML,IM,ADJUVANTED,QUAD(FL UAD) XR LUMBAR SPINE 3 VW 2022-06-24 20:29:21 [facility] 2022-06-24 19:03:46 Doctor Unassigned, No [facility] CONSENT/REFUSAL FOR 2022-06-24 19:03:25 Doctor Unassigned, No [facility]REAT[facility] Name Medical [place] DISCLOSURE AND CONSENT, 2022-05-26 05:01:00 Doctor Unassigned, N o [facility] MEDICAL AND SURGICAL Name Medical [facility] PROCEDURES Plan of Care Planned Activity Planned Date Details Comments Source Future Scheduled 2023-02-04 [facility] 11:13:10 screening (procedure) [code = 414757593] Future Scheduled 2023-02-04 SHINGLES VACCINES [facility] Test 11:13:10 (1 of 2) [code = SHINGLES VACCINES (1 of 2)] Future Scheduled 2023-02-04 COVID-19 VACCINE (3 [facility] Test 11:13:10 - Moderna series) [code = COVID-19 VACCINE (3 - Moderna series)] Future Scheduled 2023-02-04 INFLUENZA VACCINE [facility] 11:13:10 [code = INFLUENZA VACCINE] Future Scheduled 2022-04-23 HEPATITIS B [facility] 06:02:13 VACCINES (1 of 3 - 3-dose series) [code = HEPATITIS B VACCINES (1 of 3 - 3-dose series)] Future Scheduled 2022-04-23 [facility] 06:02:13 screening (procedure) [code = 526001690] Future Scheduled 2022-04-23 SHINGLES VACCINES [facility] Test 06:02:13 (1 of 2) [code = SHINGLES VACCINES (1 of 2)] Future Scheduled 2022-04-23 COVID-19 VACCINE (3 [facility] Hospital Test 06:02:13 - Booster for Moderna series) [code = COVID-19 VACCINE (3 - Booster for Moderna series)] Future Scheduled 2022-04-23 INFLUENZA VACCINE [facility] Test 06:02:13 [code = INFLUENZA VACCINE] Encounters Start End Encounter Admission Attending Care Care Encounter Source Date/Time Date/Time Type Type Clinicians Facility Department ID 2022-12-31 2022-12-31 Outpatient R NIGEL [facility] [id number] Univers 14:20:00 15:29:22 PHONG ity of [facility] 2022-12-31 2022-12-31 Urgent Phong Manning [facility] [id number] Univers 14:20:00 15:29:22 Care Unknown, Attending HEALTH [id number] ity of [place] [id number] Jered as LEONEL?BLEA [phone] Tn dical KNEY [address] [place] MEDICAL OFFICE [facility] [address] [address] 2022-12-10 2022-12-10 Office [facility] [id number] Univers 10:20:00 10:40:00 Visit Dariel LIONEL [id number] i ty [place] [id number] Tn dical NAL 059 [facility] 2022-12-10 2022-12-10 Outpatient R ELIJAHWEI [facility] [id number] Univers 10:20:00 10:20:00 [facility]-12-10 2022-12-10 Orders Doctor BENITO [id number] Univers 00:00:00 00:00:00 Only Unassigned, FABIAN [id number] ity of [place] [facility] 4.2.7.2.686 Jered as [phone] [address] 2022-12-04 2022-12-04 Documentat [place] [id number] Methodi 00:00:00 00:00:00 ion Madhu [address]92.1.[address] 3.430.2.7 Hospit a .3.025626 l .8 2022-11-13 2022-11-13 Telephone Chad [facility] [id number] Univers 00:00:00 00:00:00 Sendstefanie FLOW[place] [id number] [id number] [id number] [facility] 059 [facility] 2022-10-02 2022-10-02 Telephone Chad [facility] [id number] Univers 00:00:00 00:00:00 Kurtis [place] [id number] ity [place] [id number] [address] 2022-09-28 2022-09-28 Outpatient R CHAD [facility] [id number] Univers 13:30:00 14:07:41 SENDIL megan [facility] 2022-09-28 2022-09-28 [facility] [id number] Univers 13:30:00 14:07:41 Visit Kurtis FLOW[place] [id number] it[place] [id number] [address] 2022-09-28 2022-09-28 Orders Doctor BENITO 1.2.840.114 [id number] Univers 00:00:00 00:00:00 Only Unassigned, FABIAN [id number] ity of [place] [facility] 4.2.7.2.686 Jered as [phone] [address] 2022-09-21 2022-09-21 Office [facility] 1.2.840.114 [id number] Univers 10:30:00 11:34:37 Visit [facility] [id number] it y of [place] 4.2.7.2.686 Jered as LEONEL?BLEA [id number] Tn harvey[address] 2022-09-21 2022-09-21 [facility]patient [facility] [id number] Univers 10:30:00 11:34:37 JULISSA ity [facility] 2022-09-21 2022-09-21 [facility] [id number] Univers 10:30:00 10:30:00 JULISSA ity of [facility] 2022-09-18 2022-09-18 Telephone BENITO Castro [id number] Univers 00:00:00 00:00:00 Scotty HOLMANY 350.1.13.10 it y of [facility] 4.2.7.2.686 Jered as [id number] [address] 2022-09-18 2022-09-18 Telephone [facility] [id number] Univers 00:00:00 00:00:00 Sendstefanie [place] 350.1.13.10 [place] [id number] [address] 2022-09-18 2022-09-18 [facility]phone [facility] [id number] Univers 00:00:00 00:00:00 Julissa HEALTH 350.1.13.10 it y of [place] 4.2.7.2.686 Jered as LEONEL?BLEA [phone] [address] MEDICAL OFFICE [facility] 2022-09-04 2022-09-04 Telephone [facility] [id number] Univers 00:00:00 00:00:00 Kurtis FLOW[place] 350.1.13.10 ity [place] [id number] [address] 2022-08-27 2022-08-27 [facility] [id number] Univers 14:57:37 23:59:00 SENDIL ity of [facility] 2022-08-26 2022-08-26 [facility]ill [facility] 1.2.840.114 [id number] Univers 00:00:00 00:00:00 Wondiful A HEALTH 350.1.13.10 ity of [place] 4.2.7.2.686 Jered as LEONEL?BLEA [id number] [address] MEDICAL OFFICE [facility] 2022-08-14 2022-08-14 Orders Doctor BENITO 1.2.840.114 [id number] Univers 00:00:00 00:00:00 Only Unassigned, FABIAN 350.1.13.10 ity of [place] [facility] 4.2.7.2.686 Jered as [phone] [address] 2022-07-30 2022-07-30 [facility] 1.2.840.114 [id number] Univers 00:00:00 00:00:00 Julissa HEALTH 350.1.13.10 it y of [place] 4.2.7.2.686 Jered as LEONEL?BLEA [id number] [address] 2022-07-28 2022-07-28 Outpatient R CHAD [facility] [id number] Univers 15:30:00 16:03:44 SENDIL ity of [facility] 2022-07-28 2022-07-28 Office Chad [facility] 1.2.840.114 [id number] Univers 15:30:00 16:03:44 Visit Sendil Elyse FLOWERS 350.1.13.10 ity of [place].2.7.2.[place] [phone] [facility] 059 [facility] 2022-07-28 2022-07-28 Orders Doctor BENITO 1.2.840.114 [id number] Univers 00:00:00 00:00:00 Only Unassigned, FABIAN 350.1.13.10 ity of [place] [facility] 4.2.7.2.686 Jered as [phone] [address] 2022-07-27 2022-07-27 [facility] 1.2.840.114 [id number] Univers 00:00:00 00:00:00 Julissa HEALTH 350.1.13.10 it [facility] 4.2.7.2.686 Jered as LEONEL?BLEA [id number] [address] 2022-07-08 2022-07-08 Imm/Inj Vaccine, Ang Db Cbc Fam [facility] 1. 2.840.114 [id number] Univers 09:20:00 09:33:31 Visit Julissa Casey 350.1.13.10 ity of [place] 4.2.7.2.686 Jered as LEONEL?BLEA [id number] [address] OFFICE [facility] 2022-07-08 2022-07-08 Imm/Inj Nurse, Kt Monroe [facility] 1.2.840.114 [id number] Univers 09:00:00 09:20:00 Visit Julissa Casey 350.1.13.10 ity of [place] 4.2.7.2.686 Jered as LEONEL?BLEA [id number] [address] 2022-07-08 2022-07-08 [facility] [id number] Univers 09:00:00 09:00:00 JULISSANorth [facility] 2022-07-07 2022-07-07 Outpatient [facility] [id number] Univers 00:00:00 00:00:00 MERLE [facility] 2022-06-24 2022-06-24 Emergency [facility] [id number] Univers 14:19:00 16:40:00 ALEJANDRA [facility] 2022-06-24 2022-06-24 Emergency [facility] 1.2.492.361 [id number] Univers 14:19:00 16:40:00 Alejandra FLOWERS 350.1.13.10 i ty of [place] 4.2.7.2.686 [place] [facility] [phone] [address] 2022-06-24 2022-06-24 Office [facility] 1.2.840.114 [id number] Univers 13:00:00 13:30:00 Visit Mary Keyes HEALTH 350.1.13.10 i ty of [place] 4.2.7.2.686 Jered as LEONEL?BLEA [phone] [address] 2022-06-24 2022-06-24 Outpatient [facility] [id number] Univers 13:00:00 13:00:00 MARY ity of [facility] 2022-06-23 2022-06-23 Outpatient [facility] [id number] Univers 11:15:00 11:31:52 IRMA ity of [facility] 2022-06-23 2022-06-23 Office [facility] 1.2.428.838 [id number] Univers 11:15:00 11:31:52 Visit Irma PRIMARY 350.1.13.10 ity of [place] 4.2.7.2.686 [place] [id number] [address] 2022-06-23 2022-06-23 Corie [facility] 1.2.840.114 [id number] Univers 00:00:00 00:00:00 Julissa HEALTH 350.1.13.10 it y of [place] 4.2.7.2.686 Jered as LEONEL?BLEA [phone] [address] MEDICAL OFFICE [facility] 2022-06-19 2022-06-19 Outpatient R [facility]FR[facility]LEWISStephyFULT[facility] [id number] Univers 13:00:00 13:00:00 IRMA ity [facility] 2022-06-08 2022-06-08 [facility] 1.2.840.114 [id number] Univers 00:00:00 00:00:00 Julissa HEALTH 350.1.13.10 it y of [place] 4.2.7.2.686 Jered as LEONEL?BLEA [id number] [address] MEDICAL OFFICE [facility] 2022-06-05 2022-06-05 Outpatient R KEIRA [facility] [id number] Univers 13:30:00 13:30:00 IRMA ity [facility] 2022-06-05 2022-06-05 Outpatient R SACHINAASHISHStephy [facility] [id number] Univers 09:30:00 10:15:48 IRMA ity [facility] 2022-06-05 2022-06-05 Office [facility] 1.2.254.715 [id number] Univers 09:30:00 10:15:48 Visit Irma PRIMARY 350.1.13.10 ity of [place] 4.2.7.2.686 [place] [phone] Tn dical [address] [place] 2022-05-26 2022-05-26 Outpatient [facility] [id number] Univers 15:00:00 15:47:49 IRMA ity [facility] 2022-05-26 2022-05-26 Office [facility] 1.2.572.260 [id number] Univers 15:00:00 15:47:49 Visit Irma PRIMARY 350.1.13.10 ity of [place] 4.2.7.2.686 [place] [phone] Tn dicnj [address] [place] 2022-05-26 2022-05-26 Orders Doctor BENITO 1.2.840.114 [id number] Univers 00:00:00 00:00:00 Only Unassigned, FABIAN 350.1.13.10 ity of [place] [facility] 4.2.7.2.686 Jered as [phone] [facility] [address] 2022-05-15 2022-05-15 [facility] [id number] Univers 13:59:47 23:59:00 FLACO wells [facility] 2022-05-15 2022-05-15 [facility] 1.2.840.114 [id number] Univers 13:59:47 23:59:00 Encounter Flaco FLOWERS 350.1.13.10 ity [facility] 4.2.7.2.686 [place] CAMPUS [id number] [facility] [address] 2022-05-01 2022-05-01 Outpatient Jeramie [facility] [id number] Univers 13:35:31 23:59:00 CHIRAG ity [facility] 2022-05-01 2022-05-01 Outpatient Jeramie [facility] [id number] Univers 14:00:00 14:00:00 CHIRAG ity [facility] 2022-05-01 2022-05-01 Corie Casey [facility] 1.2.840.114 [id number] Univers 00:00:00 00:00:00 Julissa HEALTH 350.1.13.10 it y of [place] 4.2.7.2.686 Jered as LEONEL?BLEA [phone] [address] OFFICE [facility] 2022-04-30 2022-04-30 Outpatient R RAFAEL, [facility] [id number] Univers 13:30:00 14:58:27 LAISHA [facility] 2022-04-30 2022-04-30 Office [facility] 1.2.840.114 [id number] Univers 13:30:00 14:58:27 Visit [facility] 350.1.13.10 ity [facility] 4.2.7.2.686 [place] [id number] [address] 2022-04-30 2022-04-30 Outpatient [facility] [id number] Univers 13:30:00 13:30:00 LAISHA [facility] 2022-04-30 2022-04-30 Outpatient R [facility] [id number] Univers 13:30:00 13:30:00 LAISHA [facility] 2022-04-23 2022-04-23 Outpatient R LIVIER, [facility] [id number] Univers 16:00:00 16:44:51 CHIRAG [facility] 2022-04-21 2022-04-21 [employer] [employer], [facility] 1.2.840.1 14 [id number] Univers 14:00:00 14:25:21 Visit Flaco De Jesus 350.1.13.10 ity [facility] 4.2.7.2.686 Jered as LEONEL?BLEA [id number] [facility] [address] [facility] OFFICE [facility] 2022-04-21 2022-04-21 Outpatient [facility] [id number] Univers 13:30:00 14:00:42 FLACO [facility] 2022-04-21 2022-04-21 Office [facility] 1.2.840.114 [id number] Univers 13:30:00 14:00:42 Visit Flaco HEALTH 350.1.13.10 it [facility] 4.2.7.2.686 Jered as LEONEL?BLEA [id number] [address] MEDICAL OFFICE [facility] 2022-04-21 2022-04-21 Outpatient [facility] [id number] Univers 13:30:00 14:00:42 FLACO itmegan of [facility] 2022-04-17 2022-04-17 [facility] 1.2.840.114 [id number] Univers 00:00:00 00:00:00 Outreach Flaco HEALTH 350.1.13.10 i ty of [place] 4.2.7.2.686 Jered as LEONEL?BLEA [phone] [address] MEDICAL OFFICE [facility] 2022-04-16 2022-04-16 Outpatient R [facility] [id number] Univers 16:00:00 16:19:17 JULISSA ity of [facility] 2022-04-16 2022-04-16 Office [facility] 1.2.840.114 [id number] Univers 16:00:00 16:19:17 Visit Julissa HEALTH 350.1.13.10 it y of [place] 4.2.7.2.686 Jered as LEONEL?BLEA [id number] [address] OFFICE [facility] 2022-04-15 2022-04-15 Abstract Carmela [facility] 1.2.840.114 [id number] Univers 00:00:00 00:00:00 Julissa HEALTH 350.1.13.10 it y of [place] 4.2.7.2.686 Jered as LEONEL?BLEA [phone] [address] OFFICE [facility] 2022-04-14 2022-04-14 Orders Doctor OLIVER 1.2.840.114 [id number] Univers 00:00:00 00:00:00 Only Unassigned, FABIAN 350.1.13.10 ity of [place] [facility] 4.2.7.2.686 Jered as [id number] [address] 2022-04-14 2022-04-14 Telephone [facility] 1.2.394.369 [id number] Univers 00:00:00 00:00:00 Julissa HEALTH 350.1.13.10 it y of [place] 4.2.7.2.686 Jered as LEONEL?BLEA [phone] [facility] [address] [facility] OFFICE [facility] 2022-04-06 2022-04-06 Outpatient [facility] [id number] Univers 13:30:00 14:12:45 JULISSA ity of [facility] 2022-04-06 2022-04-06 Office [facility] 1.2.840.114 [id number] Univers 13:30:00 14:12:45 Visit Julissa FULLER 350.1.13.10 it y of [place] 4.2.7.2.686 Jered as LEONEL?BLEA [phone] [address] 2022-04-02 2022-04-02 Emergency [facility] ERT [id number] Univers 15:27:00 16:04:00 CHRISTOPHER it y of [facility] 2022-04-02 2022-04-[address] [facility] 1.2.986.285 [id number] Univers 15:27:00 16:04:00 Christopher LIONEL 350.1.13.10 ity of [place].2.7.2.686 [place] [id number] [facility] [address] [place] 2022-03-20 2022-03-20 [employer] [employer], Ang - Db [facility] 1.2.840.1 14 [id number] Univers 10:15:00 10:30:00 Visit Julissa Casey 350.1.13.10 ity of [place] 4.2.7.2.686 Jered as LEONEL?BLEA [id number] [facility] [address] [facility] OFFICE [facility] 2022-03-20 2022-03-20 Outpatient R [facility] [id number] Univers 10:15:00 10:15:00 ity of [facility] 2022-03-20 2022-03-20 Outpatient R ANENE, [facility] [id number] Univers 10:15:00 10:15:00 JULISSA ity [facility] 2022-03-19 2022-03-19 [employer] [employer] [facility], Ang - Db [facility] 1.2.840.1 14 [id number] Univers 10:15:00 10:30:00 Visit Julissa Casey HEALTH 350.1.13.10 ity of [place] 4.2.7.2.686 Jered as LEONEL?BLEA [id number] [facility] JENISE [address] [place] MEDICAL OFFICE [facility] 2022-03-19 2022-03-19 Office [facility] 1.2.840.114 [id number] Univers 09:30:00 10:17:16 Visit Julissa [facility] 350.1.13.10 it y of [place] 4.2.7.2.686 Jered as LEONEL?BLEA [id number] [address] OFFICE [facility] 2022-03-19 2022-03-19 Outpatient R CARMELA [facility] [id number] Univers 09:30:00 10:17:16 JULISSA ity [facility] 2022-03-19 2022-03-19 Outpatient R CARMELA [facility] [id number] Univers 10:15:00 10:15:00 JULISSA ity [facility] 2022-03-02 2022-03-02 Corie Lu [facility] 1.2.840.114 [id number] Univers 00:00:00 00:00:00 [facility] A HEALTH 350.1.13.10 ity of [place] 4.2.7.2.686 Jered as LEONEL?BLEA [phone] [address] OFFICE [facility] 2022-01-06 2022-01-06 Imm/Inj Vaccine, Ang Db Cbc [facility] 1. 2.840.114 [id number] Univers 13:00:00 13:10:00 Visit Asif Sanchez HEALTH 350.1.13.10 ity of [place] 4.2.7.2.686 Jered as LEONEL?BLEA [id number] [address] OFFICE [facility] 2022-01-06 2022-01-06 Outpatient R LAURA [facility] [id number] Univers 13:00:00 13:00:00 ASIF wells [facility] 2021-09-18 2021-09-18 [employer] [employer], Ang - Db [facility] 1.2.840.1 14 [id number] Univers 09:00:00 09:17:12 Visit EmmonsLeeroy HEALTH 350.1.13.1 0 ity of [place] 4.2.7.2.686 Jered as LEONEL?BLEA [id number] Tn dichugo BURDEN [address] [facility] OFFICE [facility] 2021-09-18 2021-09-18 Office Karol [facility] 1.2.840.114 [id number] Univers 08:30:00 09:02:26 Visit Leeroy Keyes HEALTH 350.1.13.10 ity of [place] 4.2.7.2.686 Jered as LEONEL?BLEA [id number] Tn harveyhugo B[place] [address] [facility] OFFICE [facility] 2021-09-18 2021-09-18 Outpatient R KAROL [facility] [id number] Univers 09:00:00 09:00:00 WONDIFUL ity o f [facility] 2021-07-11 2021-07-11 Imm/Inj Nurse, Adc Pob Immunization [facility] 1.2.840.114 [id number] Univers 12:55:13 13:01:03 Visit Drake Reece 350.1.13 .10 ity of [facility] 4.2.7.2.686 [place] [phone] Tn faiza [address] 2021-07-11 2021-07-11 Outpatient R SHANELL [facility] [id number] Univers 13:00:00 13:00:00 DRAKE wells [facility] 2021-07-10 2021-07-10 Corie Ding, 1.2.840.1 [id number] Methodi 00:00:00 00:00:[address] [place] [address] [place] 3.430.2.7 Hospi ta .3.714723 l .8 2021-06-14 2021-06-14 Urgent Ruby Arrieta [facility] 1.2.840.114 [id number] Univers 11:56:39 12:20:13 Gurjit [facility] 350.1.13.10 ity of [place] 4.2.7.2.686 Jered as Leonel?Blea [phone] [address] Office [facility] 2021-06-14 2021-06-14 Outpatient Jeramie [facility] [id number] Univers 12:00:00 12:00:00 GURJIT ity [facility] 2021-05-14 2021-05-14 Telephone [facility] 1.2.117.133 [id number] Univers 00:00:00 00:00:00 Laisha Flowers 350.1.13.10 ity of [place].2.7.2.686 [place] [facility] [phone] [address] 2021-05-04 2021-05-04 Urgent Provider, Kt [facility] 1.2.840.114 [id number] Univers 12:38:27 12:58:27 Care [facility] 350.1.13.10 ity of [place] 4.2.7.2.686 Jered as Leonel?Blea [phone] [address] Office [facility] 2021-05-04 2021-05-04 Outpatient Jeramie OWENS [facility] [id number] Univers 12:40:00 12:40:00 [facility] 2021-04-25 2021-04-25 [facility] 1.2.981.320 [id number] Univers 10:35:34 23:59:00 Encounter Wonchidi Flowers 350.1.13.10 ity of [place] 4.2.7.2.686 [place] [phone] [address] 2021-04-25 2021-04-25 Office [facility] 1.2.840.114 [id number] Univers 09:02:58 10:22:46 Visit Laisha Flowers 350.1.13.10 ity of [place] 4.2.7.2.686 [place] Profess[place] [phone] Me dical nal [address] 2021-04-25 2021-04-25 Outpatient Jeramie KAROL [facility] [id number] Univers 00:00:00 00:00:00 WONDIFUL ity o f [facility] 2021-04-18 2021-04-18 Office [facility] 1.2.840.114 [id number] Univers 08:48:03 10:19:03 Visit Wondiful [facility] Health 350.1.13.10 ity of [place] 4.2.7.2.686 Jered as Leonel?Blea [phone] Tn dical kney [address] [place] [facility] 2021-04-18 2021-04-18 Outpatient Jeramie KAROL [facility] [id number] Univers 09:00:00 09:00:00 WONDIFUL ity o f [facility] 2021-04-18 2021-04-18 Orders Doctor OLIVER 1.2.840.114 [id number] Univers 00:00:00 00:00:00 Only Unassigned, FABIAN 350.1.13.10 [facility] 4.2.7.2.686 Jered as [id number] [address] 2021-03-20 2021-03-20 Outpatient TIMUR, [facility] [id number] [place] 00:00:00 00:00:00 [place] [address] 2021-03-20 2021-03-20 Outpatient TIMUR [facility] [id number] [place] 00:00:00 00:00:00 M[place] [address] 2020-10-23 2020-10-23 Outpatient Jeramie BARBER [facility] [id number] Univers 10:20:00 10:20:00 TOVA ity [facility] 2020-09-24 2020-09-24 Outpatient [facility] [id number] Univers 10:20:00 10:20:00 TOVA ity [facility] 2020-05-01 2020-05-01 Outpatient TIMUR [facility] [id number] [place] 00:00:00 00:00:00 MADISON [address] 2020-04-26 2020-04-26 Outpatient TIMUR, [facility] [id number] [place] 00:00:00 00:00:00 M[place] [address] 2020-04-26 2020-04-26 Outpatient TIMUR, [facility] [id number] [place] 00:00:00 00:00:00 MADISON [address] 2019-12-19 2019-12-19 Outpatient TIMUR, [facility] [id number] [place] 00:00:00 00:00:00 MADISON [address] 2019-12-15 2019-12-15 Outpatient TIMUR, [facility] [id number] [place] 00:00:00 00:00:00 MADISON [address] 2019-10-20 2019-10-20 Outpatient JOEY, [facility] [id number] [place] 00:00:00 00:00:00 ISABELLE [address] 2019-10-20 2019-10-20 Outpatient [facility], [facility] [id number] [place] 00:00:00 00:00:00 ISABELLE [address] 2004-07-28 2004-07-28 Emergency X IGNACIA GIORDANO [facility] ERT [id number] [facility] 10:30:00 13:23:00 IGNACIA GIORDANO 3 [facility] Results This patient has no known results.
[2023-02-13] MEDS ORDERED: FENTANYL CITR 100 MCG/2 ML ONE (10:14)
[2023-02-13] MEDS ORDERED: LIDOCAINE HCL JELLY 2% 6 ML SYRINGE TOP ONE (10:15)
[2023-02-13] MEDS ORDERED: TDAP (DIPHTH,PERTUSS(ACELL),TET VAC) 0.5 ML VIAL IMVAC ONE (10:15)
--- NOTE | 2023-02-13 10:51 | RAD REPORT ---
EXAM DESCRIPTION: CT - Head C Spine Mpr Wo Con - 02/13/2023 10:27 am CLINICAL HISTORY: Head and neck injury status post fall. Head and neck pain COMPARISON: 2010 TECHNIQUE: Computed axial tomography of the head and cervical spine was obtained. Sagittal and coronal reconstruction was performed. All CT scans are performed using dose optimization technique as appropriate and may include automated exposure control or mA/KV adjustment according to patient size. FINDINGS: Frontal scalp hematoma An intracranial bleed is not seen. The ventricles are normal in caliber. No significant hypodensity within the brain. An extra-axial fluid collection is not noted. Fluid within the visualized sinuses and mastoids is not seen A cervical fracture is not visualized. No dislocation is noted. IMPRESSION: No acute intracranial abnormality is seen. A cervical fracture is not visualized. If the patient continues to have symptoms to suggest intracranial /spinal cord pathology then MRI wou ld be recommended
[2023-02-13] MEDS ORDERED: DERMABOND SKIN ADHESIVE TOP ONE (11:46)
--- NOTE | 2023-02-13 12:44 | EDPHYS ---
Physician Documentation [facility] Name: Mayra Saucedo Age: 77 yrs Sex: Female : 1945 Arrival Date: 02/13/2023 Time: 09:26 Bed 2 Private MD: ED Physician Alex Cantu HPI: 02/13 09:54 This 77 yrs old Black Female presents to ER via EMS with complaints of Fall Injury. snw 09:54 Details of fall: The patient fell from an upright position, while walking. Onset: The snw symptoms/episode began/occurred suddenly, just prior to arrival. Associated injuries: The patient sustained injury to the head, abrasion, contusion, hematoma, tenderness. Severity of symptoms: At their worst the symptoms were moderate. The patient has not experienced similar symptoms in the past. The patient has not recently seen a physician. no LOC. Historical: - Allergies: 09:43 clindamycin HCl; eh3 09:43 Morphine; eh3 09:43 sulfamethoxazole-trimethoprim; eh3 - PMHx: 09:43 Hypertension; eh3 - Immunization history:: Adult Immunizations up to date. - Social history:: Smoking status: unknown. ROS: 09:53 Constitutional: Negative for fever, chills, and weight loss, Eyes: Negative for injury, snw pain, redness, and discharge, ENT: Negative for injury, pain, and discharge, Neck: Negative for injury, pain, and swelling, Cardiovascular: Negative for chest pain, palpitations, and edema, Respiratory: Negative for shortness of breath, cough, wheezing, and pleuritic chest pain, Abdomen/GI: Negative for abdominal pain, nausea, vomiting, diarrhea, and constipation, Back: Negative for injury and pain, : Negative for injury, bleeding, discharge, and swelling, MS/Extremity: Negative for injury and deformity, Skin: Negative for injury, rash, and discoloration, Psych: Negative for depression, anxiety, suicide ideation, homicidal ideation, and hallucinations. 09:53 Neuro: Positive for facial injury s/p trip and fall on concrete, Negative for loss of consciousness. Exam: 09:48 Constitutional: This is a well developed, well nourished patient who is awake, alert, snw and in no acute distress. Eyes: Pupils equal round and reactive to light, extra-ocular motions intact. Lids and lashes normal. Conjunctiva and sclera are non-icteric and not injected. Cornea within normal limits. Periorbital areas with no swelling, redness, or edema. Neck: Trachea midline, no thyromegaly or masses palpated, and no cervical lymphadenopathy. Supple, full range of motion without nuchal rigidity, or vertebral point tenderness. No Meningismus. Chest/axilla: Normal chest wall appearance and motion. Nontender with no deformity. No lesions are appreciated. Cardiovascular: Bradycardic rate and rhythm with a normal S1 and S2. No gallops, murmurs, or rubs. Normal PMI, no JVD. No pulse deficits. Respiratory: Lungs have equal breath sounds bilaterally, clear to auscultation and percussion. No rales, rhonchi or wheezes noted. No increased work of breathing, no retractions or nasal flaring. Abdomen/GI: Soft, non-tender, with normal bowel sounds. No distension or tympany. No guarding or rebound. No evidence of tenderness throughout. Back: No spinal tenderness. No costovertebral tenderness. Full range of motion. Skin: Warm, dry with normal turgor. Normal color with no rashes, no lesions, and no evidence of cellulitis. MS/ Extremity: Pulses equal, no cyanosis. Neurovascular intact. Full, normal range of motion. Neuro: Awake and alert, GCS 15, oriented to person, place, time, and situation. Cranial nerves II-XII grossly intact. Motor strength 5/5 in all extremities. Sensory grossly intact. Cerebellar exam normal. Normal gait. Psych: Awake, alert, with orientation to person, place and time. Behavior, mood, and affect are within normal limits. 09:48 Head/face: Noted is contusion, that is deep, of the forehead, ecchymosis, that is mild. 09:48 ENT: External ear(s): are unremarkable, Nose: laceration, that is jagged, approximately 3 cm(s), bridge of nose, Mouth: Lips: abraded, approximately 1 cm(s), upper [place] border. Vital Signs: 09:42 BP 149 / 119; Pulse 60; Resp 18; Temp 98.6(O); Pulse Ox 100% on R/A; eh3 10:40 BP 171 / 75; Pulse 60; Resp 16 S; Temp 98.3(TE); Pulse Ox 100% on R/A; aa5 12:30 BP 158 / 74; Pulse 62; Resp 18 S; Pulse Ox 100% on R/A; aa5 Laceration: 12:41 Wound Repair of 3cm ( 1.2in ) subcutaneous laceration to bridge of nose. Irregularly snw shaped.. Skin/tissue flap noted.. Distal neuro/vascular/tendon intact. Anesthesia: Topical anesthetic administered with 1% lidocaine. Wound prep: Extensive cleansing with hibiclenz by nurse. Skin closed with thin layer Adhesive skin closure using Dermabond. Dressed with none. Patient tolerated well. MDM: 09:45 Patient medically screened. delisa 12:41 Differential diagnosis: abrasion, closed head injury, contusion, fracture, laceration. snw Data reviewed: vital signs, nurses notes, radiologic studies. Historians other than the Patient: EMS: [facility]. Counseling: I had a detailed discussion with the patient and/or guardian regarding: the historical points, exam findings, and any diagnostic results supporting the discharge/admit diagnosis, the presence of at least one elevated blood pressure reading (>120/80) during this emergency department visit, radiology results, the need for outpatient follow up, for definitive care, to return to the emergency department if symptoms worsen or persist or if there are any questions or concerns that arise at home. Response to treatment: the patient's symptoms have markedly improved after treatment. Special discussion: Based on the patient's history, exam and DX evaluation, there is no indication for emergent intervention or inpatient TX. It is understood by the patient/guardian that if the SXs persist or worsen they need to return immediately for re-evaluation. Based on the history and exam findings, there is no indication for further emergent testing or inpatient evaluation. I discussed with the patient/guardian the need to see the primary care provider for further evaluation of the symptoms. 02/13 09:47 Order name: CT Head C Spine; Complete Time: 11:03 snw 02/13 09:48 Order name: Wound Care: Hibiclens, moist dressing to face; Complete Time: 10:19 snw 02/13 11:45 Order name: Dermabond: 2 tubes; Complete Time: 12:01 snw Administered Medications: 10:18 Drug: fentaNYL (PF) IM 25 mcg Route: IM; Site: right deltoid; aa5 11:09 Follow up: Response: No adverse reaction aa5 10:19 Drug: Boostrix Tdap IM 0.5 ml Route: IM; Site: left deltoid; aa5 11:09 Follow up: Response: No adverse reaction aa5 10:19 Drug: Lidocaine Mucous Membrane Gel 2 % 1 application {Note: applied to nose laceration aa5 and forehead abrasion per provider..} Route: Mucous Membrane; Disposition Summary: 02/13/23 12:43 Discharge Ordered Location: Home snw Condition: Stable snw Diagnosis - Fall on same level from slipping, tripping and stumbling with subsequent striking snw against object - Unspecified injury of head, initial encounter snw - Laceration without foreign body of nose snw Followup: snw - With: Emergency Department - When: As needed - Reason: Worsening of condition Followup: snw - With: Private Physician - When: 2 - 3 days - Reason: Recheck today's complaints, Continuance of care, Re-evaluation by your physician Discharge Instructions: - Discharge Summary Sheet snw - Tissue Adhesive Wound Care snw - Head Injury, Adult snw - Fall Prevention in the Home, Adult snw - Facial Laceration snw Forms: - Medication Reconciliation Form snw - Thank You Letter snw - Antibiotic Education snw - Prescription Opioid Use snw Signatures: Dispatcher [employer] Alex Ellsworth MD MD cha Waters, Shelly, JACKAROO-C JACKAROO-Csnw Alethea Barreto, RN RN aa5 Mary Villafuerte RN RN eh3
--- NOTE | 2023-02-13 12:44 | ER ---
Nurse's Notes [facility] Name: Mayra Saucedo Age: 77 yrs Sex: Female : 1945 Arrival Date: 02/13/2023 Time: 09:26 Bed 2 Private MD: Diagnosis: Fall on same level from slipping, tripping and stumbling with subsequent striking against object;Unspecified injury of head, initial encounter;Laceration without foreign body of nose Presentation: 02/13 09:42 Chief complaint: EMS states: fell on sidewalk and hit head, denies LOC. Coronavirus eh3 screen: Vaccine status: Patient reports receiving the 2nd dose of the covid vaccine. Ebola Screen: No symptoms or risks identified at this time. Initial Sepsis Screen: Does the patient meet any 2 criteria? No. Patient's initial sepsis screen is negative. Does the patient have a suspected source of infection? No. Patient's initial sepsis screen is negative. Risk Assessment: Do you want to hurt yourself or someone else? Patient reports no desire to harm self or others. Onset of symptoms was February 13, 2023. 09:42 Method Of Arrival: EMS: [facility] eh3 09:42 Acuity: KIMBERLY 3 eh3 Triage Assessment: 09:43 General: Appears in no apparent distress. uncomfortable, Behavior is calm, cooperative, eh3 appropriate for age. Pain: Complains of pain in forehead. Neuro: Level of Consciousness is awake, alert, obeys commands, Oriented to person, place, time, situation. Neuro: Speech is normal, Pupils are PERRLA. Cardiovascular: Capillary refill < 3 seconds Patient's skin is warm and dry. Respiratory: Airway is patent Respiratory effort is even, unlabored, Respiratory pattern is regular, symmetrical. GI: Abdomen is round non-distended. Derm: Skin is pink, warm \T\ dry. Musculoskeletal: Circulation, motion, and sensation intact. Injury Description: Head injury sustained to forehead bleeding, did not have loss of consciousness, was sustained less than 30 minutes ago. Historical: - Allergies: 09:43 clindamycin HCl; eh3 09:43 Morphine; eh3 09:43 sulfamethoxazole-trimethoprim; eh3 - PMHx: 09:43 Hypertension; eh3 - Immunization history:: Adult Immunizations up to date. - Social history:: Smoking status: unknown. Screenin:45 [facility] ED Fall Risk Assessment (Adult) History of falling in the last 3 months, aa5 including since admission Yes- single mechanical fall (1 pt) Confusion or Disorientation No (0 pts) Intoxicated or Sedated No (0 pts) Impaired Gait No (0 pts) Mobility Assist Device Used No (0 pt) Altered Elimination No (0 pt) Score/Fall Risk Level 0 - 2 = Low Risk Oriented to surroundings, Maintained a safe environment, Educated pt \T\ family on fall prevention, incl call for assistance when getting out of bed. Abuse screen: Denies threats or abuse. Nutritional screening: No deficits noted. Tuberculosis screening: No symptoms or risk factors identified. Assessment: 09:45 General: Appears uncomfortable, Behavior is calm, cooperative. Pain: Complains of pain aa5 in face Pain currently is 8 out of 10 on a pain scale. Quality of pain is described as aching, tender, throbbing, Is continuous. Neuro: Level of Consciousness is awake, alert, obeys commands, Oriented to person, place, time, situation. Cardiovascular: Heart tones S1 S2 present Rhythm is regular. Respiratory: Airway is patent Respiratory effort is even, unlabored, Respiratory pattern is regular, symmetrical. GI: No signs and/or symptoms were reported involving the gastrointestinal system. : No signs and/or symptoms were reported regarding the genitourinary system. EENT: No signs and/or symptoms were reported regarding the EENT system. Derm: Skin is dry, Skin is normal, Skin temperature is warm. Musculoskeletal: Range of motion: intact in all extremities. Injury Description: hematoma with abrasion noted to forehead. Laceration noted to nose, measuring approximately 1 in long, mild bleeding noted, gauze applied to site. Bruising that is dark purple noted to inside of upper and lower lips. 10:18 Neuro: Level of Consciousness is awake, alert, obeys commands, Oriented to person, aa5 place, time, situation. Respiratory: Airway is patent Respiratory effort is even, unlabored, Respiratory pattern is regular, symmetrical. Derm: Skin is dry, Skin is normal, Skin temperature is warm. 10:20 Reassessment: Pt to CT . aa5 11:10 Reassessment: Pt assisted with bedside commode, pt voided without difficulty. Pt placed aa5 back in bed. . 11:10 Reassessment: Mild swelling and bruising that is green in color noted to left knee. . aa5 11:38 Reassessment: Awaiting laceration repair . aa5 12:00 Reassessment: Pt assisted to bedside commode, pt voided. Pt placed back in bed. . aa5 12:00 Neuro: Level of Consciousness is awake, alert, obeys commands, Oriented to person, aa5 place, time, situation. Respiratory: Airway is patent Respiratory effort is even, unlabored, Respiratory pattern is regular, symmetrical. Derm: Skin is dry, Skin is normal, Skin temperature is warm. 12:15 Reassessment: Provider at bedside completing laceration repair using Dermabond. . aa5 13:10 Neuro: Level of Consciousness is awake, alert, obeys commands, Oriented to person, aa5 place, time, situation. Respiratory: Airway is patent Respiratory effort is even, unlabored, Respiratory pattern is regular, symmetrical. Derm: Skin is dry, Skin is normal, Skin temperature is warm. Vital Signs: 09:42 BP 149 / 119; Pulse 60; Resp 18; Temp 98.6(O); Pulse Ox 100% on R/A; eh3 10:40 BP 171 / 75; Pulse 60; Resp 16 S; Temp 98.3(TE); Pulse Ox 100% on R/A; aa5 12:30 BP 158 / 74; Pulse 62; Resp 18 S; Pulse Ox 100% on R/A; aa5 ED Course: 09:41 Patient arrived in ED. eh3 09:43 Triage completed. eh3 09:43 Arm band placed on. eh3 09:45 Alex Cantu MD is Attending Physician. [facility] 09:45 Patient has correct armband on for positive identification. Bed in low position. Call aa5 light in reach. Side rails up X2. Pulse ox on. NIBP on. 09:46 Yoko Ferro FNP-C is PHCP. snw 09:46 Yoko Ferro FNP-C is PHCP. snw 10:07 Mary Villafuerte, EUGENE is Primary Nurse. eh3 10:29 CT Head C Spine In Process Unspecified. EDMS 13:10 No provider procedures requiring assistance completed. Patient did not have IV access aa5 during this emergency room visit. Administered Medications: 10:18 Drug: fentaNYL (PF) IM 25 mcg Route: IM; Site: right deltoid; aa5 11:09 Follow up: Response: No adverse reaction aa5 10:19 Drug: Boostrix Tdap IM 0.5 ml Route: IM; Site: left deltoid; aa5 11:09 Follow up: Response: No adverse reaction aa5 10:19 Drug: Lidocaine Mucous Membrane Gel 2 % 1 application {Note: applied to nose laceration aa5 and forehead abrasion per provider..} Route: Mucous Membrane; Medication: 10:19 Vaccine Information Statement (VIS) provided today. Questions and/or concerns aa5 addressed. VIS edition date: March 28, 2021. Outcome: 12:43 Discharge ordered by . snw 13:10 Discharged to home via wheelchair, with family. aa5 13:10 Condition: stable 13:10 Discharge instructions given to patient, family, Instructed on discharge instructions, follow up and referral plans. wound care, Demonstrated understanding of instructions, follow-up care, wound care. 13:12 Patient left the ED. aa5 Signatures: Dispatcher [employer] EDMS Alex Cantu MD MD cha Waters, Shelly, SENIOR GAME DESIGNER-C SENIOR GAME DESIGNER-Csnw Alethea Barreto, RN RN aa5 Mary Villafeurte, EUGENE RN eh3 Corrections: (The following items were deleted from the chart) 10:23 10:19 Lidocaine Mucous Membrane Gel 2 % 1 application Mucous Membrane aa5 aa5
[2023-02-13 13:30] VITALS: O2SAT 100
[2023-02-13 13:33] VITALS: BP 171/75; TEMP 98.3
== END 2023-02-13 13:12 | disposition home or self-care (01) ==
LOC: ER 09:26
PROC: 0HQ1XZZ Repair Face Skin, External Approach (ICD-10-PCS; principal; 2023-02-13)
DX: S01.21XA Laceration without foreign body of nose, initial encounter (principal); W01.10XA Fall on same level from slipping, tripping and stumbling with subsequent striking against unspecified object, initial encounter; I10 Essential (primary) hypertension; Z88.2 Allergy status to sulfonamides; Z88.3 Allergy status to other anti-infective agents; Z88.5 Allergy status to narcotic agent
CPT/HCPCS: 70450; 72125; 96372; 99284; 12013; J3010